=== PATIENT | female | born 1960 | race Caucasian/White ===

== ENCOUNTER 2017-12-29 19:19 | Observation (INO) | payer OTHER ==
[2017-12-29 20:08] LABS: Absolute Lymphocytes (CBC) 1.3 K/uL (0.7-4.9); Absolute Monocytes 0.7 K/uL (0.1-1.3); Absolute Neutrophil 8.3 K/uL (1.8-8.0); Basophils % 0.5 % (0-1.3); Eosinophils % 0.9 % (0-4.4); Hematocrit 43.3 % (36.0-45.0); Lymphocytes % 12.1 % (15.3-44.8); MCV 96.2 fL (80-100); MPV 7.1 fL (7.6-11.3); Monocytes % 6.8 % (3.3-12.3); RBC Red Blood Cell Count 4.51 M/uL (3.86-4.86)
[2017-12-29 20:12] LABS: Protime INR 0.95
[2017-12-29 20:18] LABS: Bicarbonate 22 mEq/L (21-31); Glucose Level 90 mg/dL (65-120); Potassium 3.8 mEq/L (3.6-5.0); Sodium Level 136 mEq/L (135-145)
[2017-12-29 20:24] LABS: ALT/SGPT 20 IU/L (10-60); AST/SGOT 49 IU/L (10-42); Albumin 3.9 g/dL (3.2-5.5); Alkaline Phosphatase 68 IU/L (42-121); BUN Blood Urea Nitrogen 6 mg/dL (6-20); Bilirubin Direct 0.1 mg/dL (0-0.2); Bilirubin Total 0.4 mg/dL (0.3-1.2); Creatine Phosphokinase 77 IU/L (22-269); Protein, Total 6.6 g/dL (6.0-8.3)
[2017-12-29 20:28] LABS: CKMB Creatine Kinase MB 1.9 ng/ml (0.3-4.0)
[2017-12-29] MEDS ORDERED: HYDRALAZINE HCL 20 MG/ML VIAL ONE (20:33)
[2017-12-29] MEDS ORDERED: hydroCHLOROthiazide 25 MG TAB ONE (20:34)
[2017-12-29] MEDS ORDERED: ASPIRIN EC 81 MG TAB PO ONE (20:34)
[2017-12-29] MEDS ORDERED: ONDANSETRON 4 MG/2 ML VIAL ONE (20:34)
[2017-12-29] MEDS ORDERED: ENOXAPARIN 60 MG/0.6 ML SQ ONE (20:35)
--- NOTE | 2017-12-29 20:35 | EDPHYS ---
Physician Documentation [facility] Name: Alessia Razo Age: 57 yrs Sex: Female : 1960 Arrival Date: 12/29/2017 Time: 19:38 Bed 16 Private MD: ED Physician Av Arevalo HPI: 12/29 20:21 This 57 yrs old Female presents to ER via EMS with complaints of Chest Pain. [place] 20:21 The patient or guardian reports chest pain that is located primarily in the substernal [place] area, anterior chest wall. Onset: just prior to arrival, today. The pain does not radiate. Associated signs and symptoms: Pertinent positives: nausea, shortness of breath. The chest pain is described as a heaviness, a pressure. Duration: The patient or guardian reports a single episode, that is still ongoing. Severity of pain: At its worst the pain was moderate in the emergency department the pain is unchanged. The patient has experienced similar episodes in the past, several times. Historical: - Allergies: 19:52 Codeine; mg2 - PMHx: 19:52 Hypertension; left eye prosthetic; left leg prosthetic; mg2 - Immunization history:: Adult Immunizations unknown. - Social history:: Smoking status: Patient uses tobacco products, smokes more than three packs cigarettes per day. Patient uses alcohol. - Family history:: not pertinent. ROS: 20:21 Constitutional: Negative for fever, chills, and weight loss, Eyes: Negative for injury, [place] pain, redness, and discharge, ENT: Negative for injury, pain, and discharge, Neck: Negative for injury, pain, and swelling, Cardiovascular: Negative for chest pain, palpitations, and edema, Respiratory: Negative for shortness of breath, cough, wheezing, and pleuritic chest pain, Abdomen/GI: Negative for abdominal pain, nausea, vomiting, diarrhea, and constipation, Back: Negative for injury and pain, : Negative for injury, bleeding, discharge, and swelling, MS/Extremity: Negative for injury and deformity, Skin: Negative for injury, rash, and discoloration, Neuro: Negative for headache, weakness, numbness, tingling, and seizure, Psych: Negative for depression, anxiety, suicide ideation, homicidal ideation, and hallucinations, Allergy/Immunology: Negative for hives, rash, and allergies, Endocrine: Negative for neck swelling, polydipsia, polyuria, polyphagia, and marked weight changes, Hematologic/Lymphatic: Negative for swollen nodes, abnormal bleeding, and unusual bruising. 20:21 MS/extremity: Negative for acute changes. Exam: 20:21 Constitutional: This is a well developed, well nourished patient who is awake, alert, [place] and in no acute distress. Head/Face: Normocephalic, atraumatic. Eyes: Pupils equal round and reactive to light, extra-ocular motions intact. Lids and lashes normal. Conjunctiva and sclera are non-icteric and not injected. Cornea within normal limits. Periorbital areas with no swelling, redness, or edema. ENT: Nares patent. No nasal discharge, no septal abnormalities noted. Tympanic membranes are normal and external auditory canals are clear. Oropharynx with no redness, swelling, or masses, exudates, or evidence of obstruction, uvula midline. Mucous membranes moist. Neck: Trachea midline, no thyromegaly or masses palpated, and no cervical lymphadenopathy. Supple, full range of motion without nuchal rigidity, or vertebral point tenderness. No Meningismus. Chest/axilla: Normal chest wall appearance and motion. Nontender with no deformity. No lesions are appreciated. Cardiovascular: Regular rate and rhythm with a normal S1 and S2. No gallops, murmurs, or rubs. Normal PMI, no JVD. No pulse deficits. Respiratory: Lungs have equal breath sounds bilaterally, clear to auscultation and percussion. No rales, rhonchi or wheezes noted. No increased work of breathing, no retractions or nasal flaring. Abdomen/GI: Soft, non-tender, with normal bowel sounds. No distension or tympany. No guarding or rebound. No evidence of tenderness throughout. Back: No spinal tenderness. No costovertebral tenderness. Full range of motion. Female : Normal external genitalia. Skin: Warm, dry with normal turgor. Normal color with no rashes, no lesions, and no evidence of cellulitis. MS/ Extremity: Pulses equal, no cyanosis. Neurovascular intact. Full, normal range of motion. Neuro: Awake and alert, GCS 15, oriented to person, place, time, and situation. Cranial nerves II-XII grossly intact. Motor strength 5/5 in all extremities. Sensory grossly intact. Cerebellar exam normal. Normal gait. Psych: Awake, alert, with orientation to person, place and time. Behavior, mood, and affect are within normal limits. 20:21 Musculoskeletal/extremity: DVT Exam: No signs of deep vein thrombosis. no pain, no swelling, no tenderness, negative Homans' sign noted on exam, no appreciated bluish discoloration, no erythema, no increased warmth. Vital Signs: 19:54 BP 212 / 107; Pulse 93; Resp 18; Temp 97.9; Pulse Ox 99% ; mg2 20:26 Weight 48.08 kg; Height 5 ft. 2 in. (157.48 cm); mg2 21:09 BP 132 / 79; Pulse 85; Resp 18; Pulse Ox 98% on R/A; mg2 21:39 BP 109 / 58; Pulse 80; Resp 18; Pulse Ox 97% on R/A; Pain 10/10; mg2 22:55 BP 112 / 62; Pulse 87; Resp 18; Pulse Ox 98% on R/A; Pain 5/10; mg2 20:26 Body Mass Index 19.39 (48.08 kg, 157.48 cm) mg2 MDM: 19:42 Patient medically screened. [facility] 20:23 Data reviewed: vital signs, nurses notes, lab test result(s), EKG, radiologic studies, [place] plain films. 12/29 19:49 Order name: Basic Metabolic Panel; Complete Time: 20:34 lp1 12/29 19:49 Order name: BNP; Complete Time: 20:34 lp1 12/29 19:49 Order name: CBC with Diff; Complete Time: 20:34 lp1 12/29 19:49 Order name: Ckmb; Complete Time: 20:34 lp1 12/29 19:49 Order name: CPK; Complete Time: 20:34 lp1 12/29 19:49 Order name: LFT's; Complete Time: 20:34 lp1 12/29 19:49 Order name: Magnesium; Complete Time: 20:34 lp1 12/29 19:49 Order name: PT-INR; Complete Time: 20:34 lp1 12/29 19:49 Order name: Ptt, Activated; Complete Time: 20:34 lp1 12/29 19:49 Order name: Troponin (emerg Dept Use Only); Complete Time: 20:34 lp1 12/29 19:49 Order name: XRAY Chest (1 view); Complete Time: 22:30 lp1 12/29 19:55 Order name: Urine Dipstick--Ancillary (enter results); Complete Time: 22:30 cb2 12/29 19:55 Order name: Urine --Ancillary (enter results); Complete Time: 22:30 cb2 12/29 19:49 Order name: EKG; Complete Time: 19:49 lp1 12/29 19:49 Order name: Cardiac monitoring; Complete Time: 19:49 lp1 12/29 19:49 Order name: EKG - Nurse/Tech; Complete Time: 19:49 lp1 12/29 19:49 Order name: IV Saline Lock; Complete Time: 19:49 lp1 12/29 19:49 Order name: Labs collected and sent; Complete Time: 20:05 lp1 12/29 19:49 Order name: O2 Per Protocol; Complete Time: 19:49 lp1 12/29 19:49 Order name: O2 Sat Monitoring; Complete Time: 19:49 lp1 12/29 19:49 Order name: Urine Dipstick-Ancillary (obtain specimen); Complete Time: 19:49 1 12/29 20:39 Order name: CONS Physician Consult EDMS Administered Medications: 20:42 Drug: Aspirin 81 mg Route: PO; mg2 21:10 Follow up: Response: No adverse reaction; Pain is decreased mg2 20:45 Drug: hydrALAZINE 20 mg Route: IV; Rate: per protocol; Site: right antecubital; mg2 21:12 Follow up: Response: No adverse reaction; Blood pressure is lowered mg2 20:45 Drug: HydrALAZINE 50 mg Route: PO; mg2 21:11 Follow up: Response: No adverse reaction; Blood pressure is lowered mg2 20:45 Drug: Lovenox 1 mg/kg Route: Sub-Q; Site: left upper abdomen; mg2 21:11 Follow up: Response: No adverse reaction mg2 20:45 Drug: fentaNYL (PF) 50 mcg Route: IVP; Site: right antecubital; mg2 21:11 Follow up: Response: No adverse reaction; Pain is decreased mg2 20:45 Drug: Zofran 4 mg Route: IVP; Site: right antecubital; mg2 21:11 Follow up: Response: No adverse reaction mg2 20:58 CANCELLED (Physician Discretion): Aspirin 162 mg PO once mg2 21:05 Drug: Coreg 25 mg Route: PO; mg2 21:26 Follow up: Response: No adverse reaction; Blood pressure is lowered mg2 Disposition: 12/29/17 20:34 Hospitalization ordered by Asia See for Observation. Preliminary diagnosis are Other chest pain, Essential (primary) hypertension. - Bed requested for Telemetry/MedSurg (observation). - Status is Observation. mg2 - Condition is Stable. - Problem is new. - Symptoms have improved. UTI on Admission? No Signatures: Dispatcher [employer] EDJackie Ace RN RN Av eL MD MD cha Pena, Laura, RN RN lp1 Beto Montesinos RN RN mg2 Corrections: (The following items were deleted from the chart) 20:58 20:21 Aspirin 162 mg PO once ordered. [facility] mg2 21:37 19:52 PSHx: BKA; mg2 lp1 21:48 20:34 Hospitalization Ordered by Asia See MD for Observation. Preliminary diagnosis is Other chest pain; Essential (primary) hypertension. Bed requested for Telemetry/MedSurg (observation). Status is Observation. Condition is Stable. Problem is new. Symptoms have improved. UTI on Admission? No. [place] 23:36 21:48 12/29/2017 20:34 Hospitalization Ordered by Asia See MD for Observation. mg2 Preliminary diagnosis is Other chest pain; Essential (primary) hypertension. Bed requested for Telemetry/MedSurg (observation). Status is Observation. Condition is Stable. Problem is new. Symptoms have improved. UTI on Admission? No.
--- NOTE | 2017-12-29 20:35 | ER ---
Nurse's Notes [facility] Name: Alessia Razo Age: 57 yrs Sex: Female : 1960 Arrival Date: 12/29/2017 Time: 19:38 Bed 16 Private MD: Diagnosis: Other chest pain;Essential (primary) hypertension Presentation: 12/29 19:45 Presenting complaint: EMS states: patient had substernal chest pain while today with a mg2 scale of 10/10. EMS gave one dose of nitroglycerin sublingual 0.5 mg \T\ 1830 and ventolin treatments prior to arrival. pain decreased to 5/10. Transition of care: patient was received from another setting of care (ambulatory primary care physician practice). Onset of symptoms was December 29, 2017. Initial Sepsis Screen: Does the patient meet any 2 criteria? No. Patient's initial sepsis screen is negative. Does the patient have a suspected source of infection? No. Patient's initial sepsis screen is negative. Care prior to arrival: Medication(s) given: Albuterol Neb x 1, Nitroglycerin, x 1. 19:45 Method Of Arrival: EMS mg2 19:45 Acuity: CAREY 3 mg2 21:07 Note aspirin 81 mgx3 was given by EMS at 1800. mg2 Triage Assessment: 19:55 General: Appears. General: Behavior is calm, cooperative, appropriate for age. Pain: mg2 Complains of pain in chest Pain level that patient reports is acceptable is 5 out of 10 on a pain scale. Quality of pain is described as aching, Pain began 2 hours ago. Is intermittent, Alleviated by medications. Historical: - Allergies: 19:52 Codeine; mg2 - PMHx: 19:52 Hypertension; left eye prosthetic; left leg prosthetic; mg2 - Immunization history:: Adult Immunizations unknown. - Social history:: Smoking status: Patient uses tobacco products, smokes more than three packs cigarettes per day. Patient uses alcohol. - Family history:: not pertinent. Screenin:55 Abuse screen: Denies threats or abuse. Nutritional screening: No deficits noted. mg2 Tuberculosis screening: No symptoms or risk factors identified. Fall Risk Ambulatory Aid- Gait- Impaired (20 pts.). Assessment: 19:56 General: Appears in no apparent distress. comfortable, Behavior is calm, cooperative, mg2 appropriate for age. Pain: Complains of pain in chest Pain level that patient reports is acceptable is 5 out of 10 on a pain scale. Quality of pain is described as aching, Pain began 2 hours ago. Is intermittent, Alleviated by medications. Neuro: Level of Consciousness is awake, alert, obeys commands, Oriented to person, place, time, situation, Speech is normal. Cardiovascular: Capillary refill < 3 seconds Patient's skin is warm and dry. Chest pain is described as mild, quality is pressure, is located in chest wall began 2 hours prior to arrival episodes are intermittent is alleviated by breathing, NTG. Respiratory: Airway is patent Respiratory effort is even, unlabored, Respiratory pattern is regular, symmetrical. GI: No signs and/or symptoms were reported involving the gastrointestinal system. : No signs and/or symptoms were reported regarding the genitourinary system. EENT: No signs and/or symptoms were reported regarding the EENT system. Derm: Skin is intact, Skin is pink, warm \T\ dry. 21:08 Reassessment: Patient appears in no apparent distress at this time. Patient and/or mg2 family updated on plan of care and expected duration. Pain level reassessed. Patient is alert, oriented x 3, equal unlabored respirations, skin warm/dry/pink. hospitalist on duty came and assessed the patient/ advised for admission. 21:40 Reassessment: patient complained of sudden chest pain. Hospitalist on duty was informed.mg2 23:07 Reassessment: Patient and/or family updated on plan of care and expected duration. Pain mg2 level reassessed. report given to PORSAH Grant. patient is ready to be transferred to the floor. Vital Signs: 19:54 BP 212 / 107; Pulse 93; Resp 18; Temp 97.9; Pulse Ox 99% ; mg2 20:26 Weight 48.08 kg; Height 5 ft. 2 in. (157.48 cm); mg2 21:09 BP 132 / 79; Pulse 85; Resp 18; Pulse Ox 98% on R/A; mg2 21:39 BP 109 / 58; Pulse 80; Resp 18; Pulse Ox 97% on R/A; Pain 10/10; mg2 22:55 BP 112 / 62; Pulse 87; Resp 18; Pulse Ox 98% on R/A; Pain 5/10; mg2 20:26 Body Mass Index 19.39 (48.08 kg, 157.48 cm) mg2 ED Course: 19:38 Patient arrived in ED. [email or web address] 19:42 Av Arevalo MD is Attending Physician. [place] 19:42 Beto Montesinos RN is Primary Nurse. mg2 19:48 Cardiac pain workup initiated per nursing protocol. lp1 19:49 Maintain EMS IV. Dressing intact. Good blood return noted. Site clean \T\ dry. Gauge \T\ lp 1 site: 18g to R AC. 19:51 Triage completed. mg2 19:59 Arm band placed on left wrist. mg2 20:00 Patient has correct armband on for positive identification. Placed in gown. Bed in low mg2 position. Call light in reach. Side rails up X2. Door closed. Warm blanket given. 20:18 XRAY Chest (1 view) In Process Unspecified. EDMS 20:18 X-ray completed. Portable x-ray completed in exam room. Patient tolerated procedure bb2 well. 20:33 Asia See MD is Hospitalizing Provider. [place] 23:30 No provider procedures requiring assistance completed. Patient admitted, IV remains in mg2 place. Administered Medications: 20:42 Drug: Aspirin 81 mg Route: PO; mg2 21:10 Follow up: Response: No adverse reaction; Pain is decreased mg2 20:45 Drug: hydrALAZINE 20 mg Route: IV; Rate: per protocol; Site: right antecubital; mg2 21:12 Follow up: Response: No adverse reaction; Blood pressure is lowered mg2 20:45 Drug: HydrALAZINE 50 mg Route: PO; mg2 21:11 Follow up: Response: No adverse reaction; Blood pressure is lowered mg2 20:45 Drug: Lovenox 1 mg/kg Route: Sub-Q; Site: left upper abdomen; mg2 21:11 Follow up: Response: No adverse reaction mg2 20:45 Drug: fentaNYL (PF) 50 mcg Route: IVP; Site: right antecubital; mg2 21:11 Follow up: Response: No adverse reaction; Pain is decreased mg2 20:45 Drug: Zofran 4 mg Route: IVP; Site: right antecubital; mg2 21:11 Follow up: Response: No adverse reaction mg2 20:58 CANCELLED (Physician Discretion): Aspirin 162 mg PO once mg2 21:05 Drug: Coreg 25 mg Route: PO; mg2 21:26 Follow up: Response: No adverse reaction; Blood pressure is lowered mg2 Outcome: 20:34 Decision to Hospitalize by Provider. [place] 23:30 Admitted to Med/surg accompanied by tech, via wheelchair, room 225, Report called to mg2 ty 23:30 Condition: stable mg2 23:30 Instructed on the need for admit. 23:36 Patient left the ED. mg2 Signatures: Dispatcher [employer] EDMS Yas Portillo rg2 Av Arevalo MD MD cha Pena, Laura, RN RN lp1 Kinsey De León bb2 Beto Montesinos RN RN mg2 Corrections: (The following items were deleted from the chart) 19:51 19:43 Presenting complaint: mg2 mg2 21:37 19:52 PSHx: BKA; mg2 lp1 12/30 02:09 02:08 No provider procedures requiring assistance completed. mg2 mg2 02:09 02:08 Patient admitted, IV remains in place. mg2 mg2
[2017-12-29] MEDS ORDERED: FENTANYL CITR 100 MCG/2 ML ONE (20:37)
--- NOTE | 2017-12-29 20:41 | RAD REPORT ---
EXAM DESCRIPTION: Dennis Single View12/29/2017 8:18 pm CLINICAL HISTORY: Chest pain COMPARISON: 2014 FINDINGS: The lungs appear clear of acute infiltrate. The heart is normal size IMPRESSION: No acute abnormalities displayed
[2017-12-29] MEDS ORDERED: CARVEDILOL 6.25 MG TAB ONE (20:52)
--- NOTE | 2017-12-29 21:11 | P.HP ---
Certification for Inpatient Patient admitted to: Observation With expected LOS: <2 Midnights Practitioner: I am a practitioner with admitting privileges, knowledge of patient current condition, hospital course, and medical plan of care. Services: Services provided to patient in accordance with Admission requirements found in Title 42 Section 412.3 of the Code of Federal Regulations Patient History Date of Service: 12/29/17 Reason for admission: chest pain History of Present Illness: Ms Razo is a 57 years old woman with history of HTN, PVD s/p left AKA, who is in plan for a spur removal from her stump. She states that has been under stress lately due to her surgery and her BP has been more elevated than usual. This morning her BP was above 200/100 at home. Then she start feeling chest pain , substernal, described as burning sensation, associated with SOB and tremors. She also had nausea and diaphoresis. She called 911, EMS gave her Nitro SL, the pain initially was 10/10, and after the nitro came down to 3/10. She states that 7 years ago had a angiogram and found a non-significant lesion. At arrival to ED her initial BP was 212/107. Allergies codeine Allergy (Mild, Verified 06/28/14 08:03) Itching No Known Allergies Allergy (Uncoded 11/25/15 15:09) Unknown Home Medications: Alprazolam [Xanax*] 0.5 mg PO Q8H 09/15/14 Gabapentin [Neurontin] 900 mg PO BEDTIME 09/15/14 Metoprolol Tartrate [Lopressor*] 50 mg PO BID 09/15/14 - Past Medical/Surgical History Diabetic: No -: PVD -: HTN -: Anxiety -: Depression -: tobacco abuse -: Partial Hysterectomy -: Cholesystectomy -: AKA left lower extremity -: Left eye removal - Family History Father -: Heart disease, Lung disease, Other (see notes) Notes: Father from TB Mother -: Lung disease, Other (see notes) Notes: Lung cancer - Social History Smoking Status: Light Tobacco smoker (1-9 cigarettes/day) Counseled patient to stop smoking for: less than 10 minutes Alcohol use: Yes CD- Drugs: No Caffeine use: Yes Review of Systems 10-point ROS is otherwise unremarkable Physical Examination - Physical Exam General: Alert, In no apparent distress HEENT: Atraumatic, PERRLA, Mucous membr. moist/pink, EOMI, Sclerae nonicteric Neck: Supple, 2+ carotid pulse no bruit, No LAD, Without JVD or thyroid abnormality Respiratory: Clear to auscultation bilaterally, Normal air movement Cardiovascular: Regular rate/rhythm, Normal S1 S2 Gastrointestinal: Normal bowel sounds, No tenderness Musculoskeletal: No tenderness, Other (left AKA) Integumentary: No rashes Neurological: Normal speech, Normal strength at 5/5 x4 extr, Normal tone, Normal affect Lymphatics: No axilla or inguinal lymphadenopathy - Studies Laboratory Data (last 24 hrs) 12/29/17 19:45: PT 11.2, INR 0.95, APTT 26.0 12/29/17 19:45: WBC 10.4, Hgb 14.9, Hct 43.3, Plt Count 295 12/29/17 19:45: B-Natriuretic Peptide 29 12/29/17 19:45: Sodium 136, Potassium 3.8, BUN 6, Creatinine 0.62, Glucose 90, Magnesium 2.0, Total Bilirubin 0.4, AST 49 H, ALT 20, Alkaline Phosphatase 68 Assessment and Plan - Problems (Diagnosis) (1) PVD (peripheral vascular disease) Current Visit: Yes Status: Acute (2) Hypertensive urgency Current Visit: Yes Status: Acute (3) Chest pain Onset Date: 06/28/14 Current Visit: No Status: Acute Qualifiers: Chest pain type: unspecified Qualified Code(s): R07.9 - Chest pain, unspecified (4) Tobacco abuse Current Visit: No Status: Chronic - Plan The patient will be admitted under observation due to chest pain in context of severe HTN. Initial trop I is negative, EKG shows no ST-T abnormalities. She was treated with HCTZ, Hydralazine and carvedilol. Her current BP is 160's/90' s. Chest pain is almost resolved. Will order serial cardiac enzymes, EKG, consult Cardiology team. - Advance Directives Does patient have a Living Will: No Does patient have a Durable POA for Healthcare: No - Code Status/Comfort Care Code Status Assessed: Yes Code Status: Full Code
[2017-12-29] MEDS ORDERED: TRAMADOL HCL 50 MG TAB PO ONE (21:41)
[2017-12-29] MEDS ORDERED: ALPRAZOLAM 0.5 MG TABLET PO SCH (22:00)
[2017-12-29 22:25] LABS: Urine Blood NEGATIVE (NEG); Urine Glucose NEGATIVE (NEG); Urine Protein NEGATIVE (NEG); Urine pH 5.5 (5.0-7.0)
[2017-12-29] MEDS ORDERED: HYDRALAZINE HCL 20 MG/ML VIAL IV PRN (23:03)
[2017-12-29] MEDS ORDERED: ONDANSETRON 4 MG/2 ML VIAL IV PRN (23:03)
[2017-12-30 01:15] VITALS: BMI 17.9
[2017-12-30] MEDS: ACETAMINOPHEN 500 MG TAB PO PRN ×2 (02:24→08:00)
[2017-12-30 06:10] LABS: Absolute Lymphocytes (CBC) 1.3 K/uL (0.7-4.9); Absolute Monocytes 0.4 K/uL (0.1-1.3); Absolute Neutrophil 4.4 K/uL (1.8-8.0); Basophils % 0.7 % (0-1.3); Eosinophils % 2.8 % (0-4.4); Hematocrit 44.1 % (36.0-45.0); Lymphocytes % 19.9 % (15.3-44.8); MCH 33.6 pg (27.0-35.0); MCV 96.9 fL (80-100); MPV 7.3 fL (7.6-11.3); RBC Red Blood Cell Count 4.55 M/uL (3.86-4.86)
[2017-12-30 06:17] LABS: Potassium 4.8 mEq/L (3.6-5.0)
--- NOTE | 2017-12-30 06:42 | EKG ---
Test Date: 2017-12-29 Test Time: 19:37:51 Drug Room Operator: BILLIE MEASUREMENT RESULTS: Intervals: Rate: 78 AL: 122 QRSD: 82 QT: 418 QTc: 476 Butler: P: 61 AL: 122 QRS: 71 T: 72 INTERPRETIVE STATEMENTS: Normal sinus rhythm Normal ECG Compared to ECG 09/15/2014 11:25:56 No significant changes Electronically Signed On 12-30-17 06:41:14 CDT by Agusto Sun
[2017-12-30] MEDS ORDERED: REGADENOSON 0.4 MG/5 ML SYR IV ONE (07:37)
[2017-12-30 08:46] VITALS: O2SAT 95
[2017-12-30] MEDS ORDERED: METOPROLOL TAR 50 MG TAB PO SCH (09:00)
[2017-12-30] MEDS ORDERED: ASPIRIN 81 MG CHEWABLE TABLET PO SCH (09:00)
[2017-12-30] MEDS ORDERED: ENOXAPARIN 40 MG/0.4 ML SQ SCH (09:00)
--- NOTE | 2017-12-30 10:04 | RAD REPORT ---
EXAM DESCRIPTION: NM - Rest Stress Cardiac Imaging - 12/30/2017 9:52 am CLINICAL HISTORY: Chest pain. COMPARISON: None. TECHNIQUE: The patient was administered approximately 10mCi of Tc 99m Sestamibi prior to resting SPE CT imaging of the heart. The patient was then administered approximately 30 mCi of Tc 99m Sestamibi f ollowing exercise or pharmacologic stress. Multiplanar SPECT images were reviewed. FINDINGS: No stress induced ischemic defect is seen to suggest stress induced ischemia. No fixed def ect is seen to suggest hibernating myocardium or scarred myocardium. The end diastolic volume is 67 ml, the end systolic volume is 17 ml, and the ejection fraction is 75 %. IMPRESSION: No stress induced ischemia.
--- NOTE | 2017-12-30 11:42 | TREADPHA ---
DX: CHEST PAIN Date of Study: 12/30/2017 Ht: 5 2 Wt: 98 lb 2 oz Consulting Physician: MELODY MEDICATIONS: TYLENOL, ASPIRIN, LOVENOX, APRESOLINE, ZOFRAN HISTORY: 57 YEAR OLD FEMALE WITH COMPLAINTS OF CHEST PAIN. MEDICAL HISTORY OF HYPERTENSION, LEFT EYE PROSTHETIC, CURRENT SMOKER OF FOUR CIGARETTES PER DAY. PHYSICIAL EXAMINATION: RESTING B.P.: 144/94 RESTING H.R.: 80 RESTING EKG: NORMAL SINUS RHYTHM, RIGHTWARD AXIS PROTOCOL: LEXISCAN EXERCISE TIME: 3:30 B.P. AT PEAK STRESS: 125/78 IMPRESSION: LEXISCAN INJECTED. CARDIOLITE INJECTED PER PROTOCOL. SEE NUCLEAR MEDICINE REPORT. NO SUPRAVENTRICULAR TACHYCARDIA. NO VENTRICULAR TACHYCARDIA. NO PREMATURE VENTRICULAR COMPLEXES. DENIED CHEST PAIN.
[2017-12-30 12:14] VITALS: BP 165/83; TEMP 99.6
[2017-12-30] MEDS ORDERED: ACETAMINOPHEN 325 MG TABLET PO PRN (13:06)
[2017-12-30] MEDS ORDERED: HYDROCODONE/APAP 10/325 TAB PO PRN (13:06)
[2017-12-30] MEDS ORDERED: ALBUTEROL 2.5 MG/3 ML NEB SOL NEB PRN (13:06)
[2017-12-30] MEDS ORDERED: HOME MED 1 EA UNK (Albuterol Sulfate [Proair Respiclick] 2 PUFF) IH PRN (13:06)
[2017-12-30] MEDS ORDERED: TIOTROPIUM (SPIRIVA) 5 SPRAYS/INHALER IH SCH (13:45)
--- NOTE | 2017-12-30 14:49 | CON ---
Date of Consultation: 12/30/2017 The patient was admitted on 12/29/[address] Chinchilla. I saw the patient on 12/30/2017. Reason For Consultation: Chest pain and hypertension. History Of Present Illness: Ms. Razo is a 57-year-old white woman, has had multiple issues in the [facility] including hypertension, peripheral vascular disease. She is status post left AKA. She has a pros thetic left leg, but apparently has not been feeling well, and she has a plan to have surgery by Dr. Chamberlain on the of this month to remove some bones from the stump area for the prosthesis to fit better. She also has a prosthetic left eye. She came in with hypertension, 200/100 and chest pain, which lasted about 30-40 minutes. She feels herself, but this may have been a panic disorder. In 2 012, she had a heart catheterization when she had a left AKA because of decompensation. Apparently, she was found to have some mild coronary artery disease. Today, she has a negative chest x-ray, nega tive EKG. Negative troponin, CPKs, MBs, and BNP. Her blood pressure is normal and she is asymptomat ic. She takes carvedilol at home. She also takes medication for dyslipidemia. Allergies: SHE IS ALLERGIC TO CODEINE. Medications: At home include Xanax, carvedilol, Neurontin, and Lipitor, Tylenol No. 3. Review of Systems: Negative. Social History: Negative. Family History: Negative. Physical Examination: General: The patient is anxious, but no acute distress. Vital Signs: Vital signs now are stable, afebrile. HEENT: Negative. Neck: Supple with no bruit. Chest: Clear. Cardiac: Revealed a regular rhythm and rate without any murmurs, gallops, or rubs. Abdomen: Benign. Extremities: Revealed left AKA. Diagnostic Data: As stated earlier. Impression And Plan: 1.The patient with chest pain, hypertension, possibly related to panic disorder. Symptoms are leia r now. Blood pressure is normal. The workup so far has been negative, but with her history of mild coronary artery disease 6 years ago, I recommended that we check a Lexiscan on her before making any final decisions. 2.Hypertension. 3.Status post left AKA. 4.Prosthetic left leg and left eye prosthesis as well. 5.Dyslipidemia. 6.Neuropathy. 7.Panic disorder and chronic pain. DARYN/MAGO Voice ID: [id number] Report ID: [id number]
--- NOTE | 2017-12-30 15:53 | P.DS ---
Admission Date: 12/29/17 Discharge Date: 12/30/17 Disposition: ROUTINE DISCHARGE Discharge Condition: FAIR Reason for Admission: chest pain Consultations: Assistant Professor Of Archaeology Dr. Moyer Procedures: Cardiac stress test negative - Problems (1) Chest pain Onset Date: 06/28/14 Status: Acute Qualifiers: Chest pain type: unspecified Qualified Code(s): R07.9 - Chest pain, unspecified (2) Hypertensive urgency Onset Date: 12/30/17 Status: Acute (3) PVD (peripheral vascular disease) Onset Date: 12/30/17 Status: Acute (4) Tobacco abuse Onset Date: 12/30/17 Status: Chronic Brief History of Present Illness: From H&P Ms Razo is a 57 years old woman with history of HTN, PVD s/p left AKA, who is in plan for a spur removal from her stump. She states that has been under stress lately due to her surgery and her BP has been more elevated than usual. This morning her BP was above 200/100 at home. Then she start feeling chest pain , substernal, described as burning sensation, associated with SOB and tremors. She also had nausea and diaphoresis. She called 911, EMS gave her Nitro SL, the pain initially was 10/10, and after the nitro came down to 3/10. She states that 7 years ago had a angiogram and found a non-significant lesion. At arrival to ED her initial BP was 212/107. Hospital Course: Patient is a 57-year-old female who was admitted to the hospital for chest pain rule out ACS. Patient was found to have mild coronary artery disease in 2011 after catheterization was done. Patient was admitted to rule out ACS. Cardiac enzymes were negative. Patient was seen by cardiology and stress test was obtained. Stress test did not show any stress-induced ischemia. Patient's chest pain resolved like related to anxiety. Patient also had uncontrolled blood pressure with systolic in the 200. Patient has been stressed out recently due to upcoming surgery for her a bone spur removal on her stump site. Patient to was then cleared for discharge by cardiology and was sent home in a stable condition Vital Signs/Physical Exam: Temp Pulse Resp BP Pulse Ox 99.6 F 73 16 165/83 H 96 12/30/17 12:00 12/30/17 12:00 12/30/17 12:00 12/30/17 12:00 12/30/17 12:00 General: Alert, In no apparent distress, Oriented x3 HEENT: Atraumatic, Normocephalic, PERRLA, EOMI Neck: Supple, JVD not distended Respiratory: Clear to auscultation bilaterally, Normal air movement Cardiovascular: No edema, Regular rate/rhythm, Normal S1 S2, Abnormal pulses Gastrointestinal: Normal bowel sounds, Soft and benign, Non-distended, No tenderness Musculoskeletal: No tenderness, Other (Left AKA) Integumentary: No rashes Neurological: Normal speech, Normal tone, Normal affect Laboratory Data at Discharge: WBC 6.3 K/uL (4.3-10.9) D 12/30/17 05:17 Hgb 15.3 g/dL (12.0-15.0) H 12/30/17 05:17 Hct 44.1 % (36.0-45.0) 12/30/17 05:17 Plt Count 297 K/uL (152-406) 12/30/17 05:17 PT 11.2 SECONDS (9.5-12.5) 12/29/17 19:45 INR 0.95 12/29/17 19:45 APTT 26.0 SECONDS (24.3-36.9) 12/29/17 19:45 Sodium 138 mEq/L (135-145) 12/30/17 05:17 Potassium 4.8 mEq/L (3.6-5.0) 12/30/17 05:17 BUN 11 mg/dL (6-20) 12/30/17 05:17 Creatinine 0.82 mg/dL (0.44-1.00) 12/30/17 05:17 Glucose 95 mg/dL (65-120) 12/30/17 05:17 Magnesium 2.0 mg/dL (1.8-2.5) 12/29/17 19:45 Total Bilirubin 0.4 mg/dL (0.3-1.2) 12/29/17 19:45 AST 49 IU/L (10-42) H 12/29/17 19:45 ALT 20 IU/L (10-60) 12/29/17 19:45 Alkaline Phosphatase 68 IU/L (42-121) 12/29/17 19:45 Troponin I < 0.03 ng/mL (<0.03) 12/29/17 23:11 B-Natriuretic Peptide 29 pg/ml (<=100) 12/29/17 19:45 Triglycerides 168 mg/dL (35-160) H 12/30/17 05:17 Cholesterol 227 mg/dL (<200) H 12/30/17 05:17 HDL Cholesterol 76 mg/dL (29-89) 12/30/17 05:17 Cholesterol/HDL Ratio 2.99 12/30/17 05:17 Home Medications: Alprazolam [Xanax*] 1 mg PO BID 09/15/14 Gabapentin [Neurontin] 900 mg PO BID 09/15/14 Acetaminophen [Tylenol] 2 tab PO Q6H PRN 12/30/17 Albuterol Sulfate [Albuterol Sulfate 0.083% Neb Soln] 2.5 mg IH Q4H PRN Albuterol Sulfate [Proair Respiclick] 2 puff IH Q4H PRN 12/30/17 Amlodipine [Norvasc*] 10 mg PO DAILY 12/30/17 Aspirin 81 mg PO DAILY 12/30/17 Atorvastatin Calcium [Lipitor] 40 mg PO DAILY 12/30/17 Carvedilol 0.5 mg PO BID 12/30/17 Cyanocobalamin (Vitamin B-12) [Vitamin B12] 2,500 mcg PO DAILY 12/30/17 Hydralazine [Apresoline*] 50 mg PO BID 12/30/17 Hydrocodone/Acetaminophen [Hydrocodone-Acetamin 10-325 mg] 1 tab PO Q6H PRN 11/14 Oxybutynin Chloride 5 mg PO BID 12/30/17 Paroxetine HCl 20 mg PO DAILY 12/30/17 Tiotropium [Spiriva Handihaler*] 18 mcg IH DAILY 12/30/17 Patient Discharge Instructions: f/up w PCP in 2-3 days. f/up w supervisor hospitality house Dr. Moyer in 2 weeks. Return to ER for worsening condition Diet: AHA Activity: Fall precautions Followup: Neal Moyer MD [ACTIVE - CAN ADMIT] - 1-2 Weeks (Call for appointment)
[2017-12-30] MEDS ORDERED: OXYBUTYNIN CHLORIDE 5 MG TAB PO SCH (21:00)
[2017-12-30] MEDS ORDERED: GABAPENTIN 900 MG PO SCH (21:00)
[2017-12-30] MEDS ORDERED: CARVEDILOL 25 MG TAB PO SCH (21:00)
[2017-12-30] MEDS ORDERED: GABAPENTIN 300 MG CAP PO SCH (21:00)
[2017-12-30] MEDS ORDERED: ATORVASTATIN 40 MG TAB PO SCH (21:00)
[2017-12-31] MEDS ORDERED: AMLODIPINE 10 MG TAB PO SCH (09:00)
[2017-12-31] MEDS ORDERED: CYANOCOBALAMIN 1,000 MCG TAB PO SCH (09:00)
[2017-12-31] MEDS ORDERED: PARoxetine HCl 10 MG TAB PO SCH (09:00)
[2017-12-31] MEDS ORDERED: HOME MED 1 EA UNK (Paroxetine Hcl [Paroxetine Hcl] 20 MG) PO SCH (09:00)
[2017-12-31] MEDS ORDERED: HOME MED 1 EA UNK (Cyanocobalamin (Vitamin B-12) [Vitamin B12] 2,500 MCG) PO SCH (09:00)
== END 2017-12-30 14:15 | disposition home or self-care (01) ==
LOC: ER 19:19 → ERHOLD 20:36 → 2ND 22:38
PROVIDERS: ADMIT Internal Medicine; ATTEND Internal Medicine
DX: R07.9 Chest pain, unspecified (principal); I16.0 Hypertensive urgency; I73.9 Peripheral vascular disease, unspecified; Z89.612 Acquired absence of left leg above knee; F17.210 Nicotine dependence, cigarettes, uncomplicated; F41.0 Panic disorder [episodic paroxysmal anxiety]
CPT/HCPCS: 36415; 71045; 78452; 80048; 80061; 80076; 81003; 81025; 82550; 82553; 83735; 83880; 84484; 85025; 85610; 85730; 93005; 93017; 96372; 96374; 96375; 99285; A9500; G0378; J0360; J1650; J2405; J2785; J3010

== ENCOUNTER 2020-09-29 18:06 | Emergency (ER) | payer OTHER ==
--- OUTSIDE RECORDS SUMMARY | 2020-09-29 18:09 | XMS REPORT | Continuity of Care Document ---
:1960 Author Organization [facility] t Address [address] [place] [address] Care Team Providers Name Role Phone Unavailable Unavailable Unavailable Problems This patient has no known problems. Allergies, Adverse Reactions, Alerts This patient has no known allergies or adverse reactions. Medications This patient has no known medications. Procedures This patient has no known procedures. Results This patient has no known results.
[2020-09-29] MEDS ORDERED: MORPHINE 4 MG/ML SYR ONE (18:54)
[2020-09-29] MEDS ORDERED: ONDANSETRON 4 MG (ODT) TAB ONE (18:55)
--- NOTE | 2020-09-29 20:28 | EDPHYS ---
Physician Documentation [facility] Name: Alessia Rzao Age: 59 yrs Sex: Female : 1960 Arrival Date: 09/29/2020 Time: 18:09 Bed 6 Private MD: ED Physician Ela Mcclain HPI: 09/29 18:36 This 59 yrs old Female presents to ER via EMS with complaints of Hip Injury. pm1 18:36 The patient or guardian reports pain. that occurred at home, sustained from a fall, pm1 from wheelchair, There is no obvious deformity, The patient's discomfort radiates to the pain radiates from left hip up to her lower back. Onset: The symptoms/episode began/occurred just prior to arrival. Modifying factors: The symptoms are alleviated by nothing, the symptoms are aggravated by nothing. Associated signs and symptoms: Loss of consciousness: the patient experienced no loss of consciousness, Pertinent negatives: headache, neck pain. Severity of symptoms: in the emergency department the symptoms. The patient has not experienced similar symptoms in the past. Patient with left AKA. Historical: - Allergies: 18:15 Codeine; hb - Home Meds: 18:15 "unknown hypertension medication" [Active]; Aspir-81 81 mg Oral TbEC 1 tab once daily hb [Active]; alprazolam 1 mg Oral tab 1 tab twice a day [Active]; Coumadin 7.5 mg Oral tab daily [Active]; gabapentin 900 mg Oral 1 cap once daily [Active]; Metoprolol Tartrate Oral for Hypertension [Active]; - PMHx: 18:15 Hypertension; left eye prosthetic; left leg prosthetic; hb - Immunization history: Last tetanus immunization: unknown. - Social history:: Smoking status: Patient reports the use of cigarette tobacco products, smokes one pack cigarettes per day. ROS: 18:36 Constitutional: Negative for fever, chills, and weight loss, Neck: Negative for injury, pm1 pain, and swelling, Cardiovascular: Negative for chest pain, palpitations, and edema, Respiratory: Negative for shortness of breath, cough, wheezing, and pleuritic chest pain, Abdomen/GI: Negative for abdominal pain, nausea, vomiting, diarrhea, and constipation, Back: Negative for injury 18:36 Skin: Negative for injury, rash, and discoloration. 18:36 Neuro: Negative for headache, weakness, numbness, tingling, and seizure. 18:36 MS/extremity: Positive for pain, of the left hip, Negative for decreased range of motion, deformity. Exam: 18:36 Constitutional: This is a well developed, well nourished patient who is awake, alert, pm1 and in no acute distress. Head/Face: Normocephalic, atraumatic. Neck: Trachea midline, no thyromegaly or masses palpated, and no cervical lymphadenopathy. Supple, full range of motion without nuchal rigidity, or vertebral point tenderness. No Meningismus. 18:36 Skin: Warm, dry with normal turgor. Normal color with no rashes, no lesions, and no evidence of cellulitis. 18:36 Cardiovascular: Exam negative for acute changes, Rate: normal, Rhythm: regular, Pulses: no pulse deficits are appreciated. 18:36 Respiratory: Exam negative for acute changes, respiratory distress, shortness of breath. 18:36 Abdomen/GI: Inspection: abdomen appears normal, Palpation: abdomen is soft and non-tender, in all quadrants. 18:36 Back: pain, is absent, normal spinal alignment noted, vertebral tenderness, is not appreciated, muscle spasm, is not present. 18:36 Musculoskeletal/extremity: Extremities: grossly normal except: noted in the left hip: tenderness, There is no evidence of decreased ROM, deformity. Vital Signs: 18:10 BP 109 / 76; Pulse 84; Resp 17; Temp 97.8; Pulse Ox 99% on R/A; Pain 10/10; hb 20:00 BP 161 / 80; Pulse 80; Resp 18; Pulse Ox 98% on R/A; wh [place] Coma Score: 18:10 Eye Response: spontaneous(4). Verbal Response: oriented(5). Motor Response: obeys hb commands(6). Total: 15. Trauma Score (Adult): 18:10 Eye Response: spontaneous(1); Verbal Response: oriented(1); Motor Response: obeys hb commands(2); Systolic BP: > 89 mm Hg(4); Respiratory Rate: 10 to 29 per min(4); Barbie Score: 15; Trauma Score: 12 MDM: 18:32 Patient medically screened. pm1 19:20 Data reviewed: vital signs. Data interpreted: Pulse oximetry: on room air is 99 %. pm1 Interpretation: normal. 20:27 Counseling: I had a detailed discussion with the patient and/or guardian regarding: the pm1 historical points, exam findings, and any diagnostic results supporting the discharge/admit diagnosis, radiology results, the need for outpatient follow up, to return to the emergency department if symptoms worsen or persist or if there are any questions or concerns that arise at home. 20:46 ED course: WINDOW SHADE INSTALLER allison reviewed and explained to patient to follow up with her PCP for pm1 narcotic medications if she so desires. Patient understands and [facility] 18:35 Order name: Hip Left 2 View XRAY pm1 Administered Medications: 18:43 Drug: morphine 4 mg {Note: rass2.} Route: IM; Site: right deltoid; sv 20:56 Follow up: Response: No adverse reaction; Pain is decreased; RASS: Alert and Calm (0) 18:43 Drug: Zofran (Ondansetron) 4 mg Route: PO; sv 20:57 Follow up: Response: No adverse reaction 20:50 Drug: [place] 10 mg-325 mg 1 tabs Route: PO; wh 20:57 Follow up: Response: No adverse reaction; Pain is decreased; RASS: Alert and Calm (0) Disposition: 09/30 18:33 Co-signature as Attending Physician, Ela Mcclain MD. ma2 Disposition: 09/29/20 20:28 Discharged to Home. Impression: Contusion of left hip, Fall from non-moving wheelchair. - Condition is Stable. - Discharge Instructions: Contusion. - Medication Reconciliation Form, Thank You Letter, Antibiotic Education, Prescription Opioid Use form. - Follow up: Emergency Department; When: As needed; Reason: Worsening of condition. Follow up: Private Physician; When: 2 - 3 days; Reason: Recheck today's complaints, Continuance of care, Re-evaluation by your physician. - Problem is new. - Symptoms have improved. Signatures: Dispatcher [employer] EDAmerica Echeverria, RN Gee Nicole, CHILLER HAND CHILLER HAND pm1 Nasreen Medeiros RN RN hb Habalo, Winsy, RN RN Ela Mcclain MD MD ma2 Corrections: (The following items were deleted from the chart) 01/31 20:48 20:46 ED course: MADDI cooper reviewed and explained to patient to follow up with her PCP pm1 for narcotic medications if she so desires. Patient understands and I showed her her report from [facility]. pm1 20:58 20:28 09/29/2020 20:28 Discharged to Home. Impression: Contusion of left hip; Fall from wh non-moving wheelchair. Condition is Stable. Forms are Medication Reconciliation Form, Thank You Letter, Antibiotic Education, Prescription Opioid Use. Follow up: Emergency Department; When: As needed; Reason: Worsening of condition. Follow up: Private Physician; When: 2 - 3 days; Reason: Recheck today's complaints, Continuance of care, Re-evaluation by your physician. Problem is new. Symptoms have improved. pm1
--- NOTE | 2020-09-29 20:28 | ER ---
Nurse's Notes [facility] Name: Alessia Razo Age: 59 yrs Sex: Female : 1960 Arrival Date: 09/29/2020 Time: 18:09 Bed 6 Private MD: Diagnosis: Contusion of left hip;Fall from non-moving wheelchair Presentation: 09/29 18:10 Chief complaint: EMS states: Fell out of wheelchair onto left hip while attempting to hb cross threshold of her home. Reports left hip pain / that radiates to low back and down left leg. Hx of left AKA 2010. Care prior to arrival: None. Mechanism of Injury: Fall out of chair. Trauma event details: Injury occurred in the [facility], Injury occurred: at home. Injury occurred: September 29, 2020. 18:10 Acuity: CAREY 3 hb 18:10 Method Of Arrival: EMS: [facility] hb 18:14 Coronavirus screen: At this time, the client does not indicate any symptoms associated hb with coronavirus-19. Ebola Screen: No symptoms or risks identified at this time. Initial Sepsis Screen: Does the patient meet any 2 criteria? No. Patient's initial sepsis screen is negative. Does the patient have a suspected source of infection? No. Patient's initial sepsis screen is negative. Risk Assessment: Do you want to hurt yourself or someone else? Patient reports no desire to harm self or others. Onset of symptoms was September 29, 2020. Trauma Activation: Not Applicable Physician: ED Physician; Name: ; Notified At: ; Arrived At: Physician: General Surgeon; Name: ; Notified At: ; Arrived At: Physician: Radiology; Name: ; Notified At: ; Arrived At: Physician: Respiratory; Name: ; Notified At: ; Arrived At: Physician: Lab; Name: ; Notified At: ; Arrived At: Historical: - Allergies: 18:15 Codeine; hb - Home Meds: 18:15 "unknown hypertension medication" [Active]; Aspir-81 81 mg Oral TbEC 1 tab once daily hb [Active]; alprazolam 1 mg Oral tab 1 tab twice a day [Active]; Coumadin 7.5 mg Oral tab daily [Active]; gabapentin 900 mg Oral 1 cap once daily [Active]; Metoprolol Tartrate Oral for Hypertension [Active]; - PMHx: 18:15 Hypertension; left eye prosthetic; left leg prosthetic; hb - Immunization history: Last tetanus immunization: unknown. - Social history:: Smoking status: Patient reports the use of cigarette tobacco products, smokes one pack cigarettes per day. Screenin:10 Abuse screen: Denies threats or abuse. Denies injuries from another. Tuberculosis hb screening: No symptoms or risk factors identified. 18:15 Nutritional screening: No deficits noted. Fall Risk Total Raymond Fall Scale indicates hb Low Risk Score (25-44 pts). Fall prevention measures have been instituted. Side Rails Up X 2 Frequent Obs/Assesments occuring As available Patient and Family Educated on Fall Prevention Program and strategies. Primary Survey: 18:10 NO uncontrolled hemorrhage observed. A: The patient is alert. Airway: patent, No hb supplemental oxygen in use on arrival. Breathing/Chest: Respiratory pattern: regular, Respiratory effort: spontaneous, unlabored, Chest inspection: symmetrical rise and fall of the chest. Circulation: Skin color: pink, Skin temperature: warm, dry. Disability Alert. Exposure/Environment: A warming method has been applied: A warm blanket has been provided to the patient. 19:15 Reassessment Breathing/Chest Respiratory pattern Regular Respiratory effort Spontaneous wh Unlabored Circulation Temperature Warm. Secondary Survey: 18:10 HEENT: No deficits noted. Gastrointestinal: No deficits noted. : No deficits noted. hb No signs and/or symptoms were reported regarding the genitourinary system. Musculoskeletal: Reports left hip pain that radiates to left leg and low back. Assessment: 18:10 General: Appears in no apparent distress. uncomfortable, Behavior is calm, cooperative. hb Pain: Pain currently is 10 out of 10 on a pain scale. Neuro: Level of Consciousness is awake, alert, obeys commands, Oriented to person, place, time, situation. EENT: No signs and/or symptoms were reported regarding the EENT system. Cardiovascular: Capillary refill < 3 seconds Patient's skin is warm and dry. Respiratory: Respiratory effort is even, unlabored, Respiratory pattern is regular, symmetrical. GI: No signs and/or symptoms were reported involving the gastrointestinal system. : No signs and/or symptoms were reported regarding the genitourinary system. Derm: Skin is pink, warm \\T\\ dry. Musculoskeletal: Reports left hip pain that radiates to low back and left leg. 18:44 Reassessment: Patient appears in no apparent distress at this time. No changes from sv previously documented assessment. Patient and/or family updated on plan of care and expected duration. Pain level reassessed. Patient is alert, oriented x 3, equal unlabored respirations, skin warm/dry/pink. 19:15 Reassessment: Patient appears in no apparent distress at this time. Patient and/or wh family updated on plan of care and expected duration. Pain level reassessed. Patient is alert, oriented x 3, equal unlabored respirations, skin warm/dry/pink. 20:05 Reassessment: Patient appears in no apparent distress at this time. Patient and/or wh family updated on plan of care and expected duration. Pain level reassessed. Patient is alert, oriented x 3, equal unlabored respirations, skin warm/dry/pink. Vital Signs: 18:10 BP 109 / 76; Pulse 84; Resp 17; Temp 97.8; Pulse Ox 99% on R/A; Pain 10/10; hb 20:00 BP 161 / 80; Pulse 80; Resp 18; Pulse Ox 98% on R/A; wh [place] Coma Score: 18:10 Eye Response: spontaneous(4). Verbal Response: oriented(5). Motor Response: obeys hb commands(6). Total: 15. Trauma Score (Adult): 18:10 Eye Response: spontaneous(1); Verbal Response: oriented(1); Motor Response: obeys hb commands(2); Systolic BP: > 89 mm Hg(4); Respiratory Rate: 10 to 29 per min(4); Barbie Score: 15; Trauma Score: 12 ED Course: 18:09 Patient arrived in ED. hb 18:10 Patient has correct armband on for positive identification. Bed in low position. Call hb light in reach. Side rails up X 1. 18:10 Patient maintains SpO2 saturation greater than 95% on room air. hb 18:11 Triage completed. hb 18:15 Arm band placed on. hb 18:16 Thermoregulation: warm blanket given to patient. hb 18:32 Gee Dominguez NP is PHCP. pm1 18:32 Ela Mcclain MD is Attending Physician. pm1 18:37 Nasreen Medeiros RN is Primary Nurse. hb 19:07 Primary Nurse role handed off by Nasreen Medeiros RN mw2 19:48 Hip Left 2 View XRAY In Process Unspecified. EDMS 20:06 Yonis Dominguez, RN is Primary Nurse. 20:57 No provider procedures requiring assistance completed. Patient did not have IV access during this emergency room visit. Administered Medications: 18:43 Drug: morphine 4 mg {Note: rass2.} Route: IM; Site: right deltoid; sv 20:56 Follow up: Response: No adverse reaction; Pain is decreased; RASS: Alert and Calm (0) 18:43 Drug: Zofran (Ondansetron) 4 mg Route: PO; sv 20:57 Follow up: Response: No adverse reaction 20:50 Drug: [place] 10 mg-325 mg 1 tabs Route: PO; 20:57 Follow up: Response: No adverse reaction; Pain is decreased; RASS: Alert and Calm (0) Intake: 18:10 PO: 0ml; Total: 0ml. hb Output: 18:10 Urine: 0ml; Total: 0ml. Outcome: 20:28 Discharge ordered by MD. pm1 20:57 Discharged to home via wheelchair. 20:57 Condition: stable 20:57 Discharge instructions given to patient, Instructed on discharge instructions, follow up and referral plans. POC Demonstrated understanding of instructions, follow-up care, POC 20:58 Patient's length of stay was not longer than 2 hours. 20:58 Patient left the ED. Signatures: Dispatcher [employer] EDMT America Kellogg RN RN Gee Dominguez, VETERANS REHABILITATION COUNSELOR VETERANS REHABILITATION COUNSELOR pm1 Nasreen Medeiros RN RN Yonis Dominguez RN RN Pavan Kearns mw2 Corrections: (The following items were deleted from the chart) 18:12 18:10 Chief complaint: EMS states: Fell out of wheelchair onto left hip while hb attempting to cross threshold of her home. Reports left hip pain 10/10 that radiates to low back and down left leg. Hx of left leg AKA 2010. hb
[2020-09-29] MEDS ORDERED: HYDROCODONE/APAP 10/325 TAB ONE (21:04)
--- NOTE | 2020-09-29 21:06 | RAD REPORT ---
EXAM DESCRIPTION: RAD - Hip Left 2 View - 09/29/2020 7:46 pm CLINICAL HISTORY: Left hip pain status post injury FINDINGS: Bones are osteoporotic. No fracture or dislocation is seen involving the left hip. Prominent lucency involves the diaphysis of the left femur to the level of the stump. Most likely thi s represents prominent trabecula. A nondisplaced fracture is considered less likely. If the patient has clinical symptoms to suggest an occult fracture then CT would be recommended
[2020-09-29 21:37] VITALS: TEMP 97.8
[2020-09-29 21:38] VITALS: BP 161/80; O2SAT 98
== END 2020-09-29 20:58 | disposition home or self-care (01) ==
LOC: ER 18:06
DX: S70.02XA Contusion of left hip, initial encounter (principal); V00.811A Fall from moving wheelchair (powered), initial encounter; Y92.019 Unspecified place in single-family (private) house as the place of occurrence of the external cause; Y93.9 Activity, unspecified; Y92.9 Unspecified place or not applicable; Z88.6 Allergy status to analgesic agent; F17.210 Nicotine dependence, cigarettes, uncomplicated
CPT/HCPCS: 96372; 99284

== ENCOUNTER 2020-11-14 01:32 | Emergency (ER) | payer OTHER ==
--- OUTSIDE RECORDS SUMMARY | 2020-11-14 01:34 | XMS REPORT | Continuity of Care Document ---
:1960 Author Organization [facility] t Address [address] [place] [address] Dr. Duncan [address] [place] [id number] Care Team Providers Name Role Phone Unavailable Unavailable Unavailable Problems This patient has no known problems. Allergies, Adverse Reactions, Alerts This patient has no known allergies or adverse reactions. Medications This patient has no known medications. Procedures This patient has no known procedures. Results This patient has no known results.
[2020-11-14] MEDS ORDERED: hydroCHLOROthiazide 25 MG TAB ONE (02:48)
[2020-11-14] MEDS ORDERED: SMZ./TMP. 800/160 MG TABLET ONE (02:48)
[2020-11-14] MEDS ORDERED: DOXYCYCLINE 100 MG CAP PO ONE (02:48)
[2020-11-14] MEDS ORDERED: METOPROLOL TAR 50 MG TAB ONE (02:48)
[2020-11-14 03:05] LABS: Urine Blood TRACE (NEG); Urine Glucose NEGATIVE (NEG); Urine Protein NEGATIVE (NEG); Urine Specific Gravity >1.030 (1.005-1.030); Urine pH 5.5 (5.0-7.0)
[2020-11-14 03:17] LABS: Absolute Lymphocytes (CBC) 2.2 K/uL (0.7-4.9); Hematocrit 40.3 % (36.0-45.0); Lymphocytes % 28.6 % (15.3-44.8); MPV 7.4 fL (7.6-11.3); RBC Red Blood Cell Count 4.34 M/uL (3.86-4.86)
[2020-11-14 03:30] LABS: Barbiturates NEGATIVE (NEGATIVE); Benzodiazepines NEGATIVE (NEGATIVE); Cocaine NEGATIVE (NEGATIVE); METHAMPHETAM POSITIVE (NEGATIVE); Methadone NEGATIVE (NEGATIVE); Opiates NEGATIVE (NEGATIVE); Phencyclidine NEGATIVE (NEGATIVE); THC Cannibis NEGATIVE (NEGATIVE)
--- NOTE | 2020-11-14 03:33 | ER ---
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 Pt thinks its either parasite or bed bug. Coronavirus screen: Client denies travel out of the [place] in the last 14 days. At this time, the client does not indicate any symptoms associated with coronavirus-19. Ebola Screen: Patient negative for fever greater than or equal to 101.5 degrees Fahrenheit, and additional compatible Ebola Virus Disease symptoms Patient denies exposure to infectious person. Initial Sepsis Screen: Does the patient meet any 2 criteria? HR > 90 bpm. Does the patient have a suspected source of infection? No. Patient's initial sepsis screen is negative. Risk Assessment: Do you want to hurt yourself or someone else? Patient reports no desire to harm self or others. Onset of symptoms was November 14, 2020. 01:38 Method Of Arrival: EMS: [facility] 01:38 Acuity: CAREY 4 Historical: - Allergies: 01:43 Codeine; - Home Meds: :43 "unknown hypertension medication" [Active]; alprazolam 1 mg Oral tab 1 tab twice a day [Active]; Aspir-81 81 mg Oral TbEC 1 tab once daily [Active]; Metoprolol Tartrate Oral for Hypertension [Active]; - PMHx: 01:43 Hypertension; left eye prosthetic; left leg prosthetic; - Immunization history:: Adult Immunizations not up to date. - Social history:: Smoking status: Patient reports the use of cigarette tobacco products, smokes one-half pack cigarettes per day. - Family history:: not pertinent. Screenin:43 Abuse screen: Denies threats or abuse. Denies injuries from another. Nutritional screening: No deficits noted. Tuberculosis screening: No symptoms or risk factors identified. Fall Risk Fall in past 12 months (25 points). Assessment: 01:44 General: Appears in no apparent distress. Behavior is calm, cooperative, appropriate for age. Pain: Denies pain. Neuro: Level of Consciousness is awake, alert, obeys commands, Oriented to person, place, time, situation. Cardiovascular: Capillary refill < 3 seconds. Respiratory: Airway is patent Respiratory effort is even, unlabored, Respiratory pattern is regular, symmetrical. GI: Abdomen is flat, non-distended. : No signs and/or symptoms were reported regarding the genitourinary system. EENT: Reports prosthetic right eye. Derm: Skin is intact. Musculoskeletal: Amputation of left leg. 03:40 Reassessment: Patient appears in no apparent distress at this time. No changes from previously documented assessment. Patient and/or family updated on plan of care and expected duration. Pain level reassessed. Patient is alert, oriented x 3, equal unlabored respirations, skin warm/dry/pink. Vital Signs: 01:38 BP 213 / 122; Pulse 96; Resp 18; Temp 98.2; Pulse Ox 99% ; Weight 42.64 kg; Height 5 ft. 2 in. (157.48 cm); 03:39 BP 153 / 92; Pulse 70; Resp 18; Pulse Ox 99% on R/A; 01:38 Body Mass Index 17.19 (42.64 kg, 157.48 cm) ED Course: 01:37 Patient arrived in ED. 01:40 Triage completed. 01:43 Av Arevalo MD is Attending Physician. [place] 01:44 Patient has correct armband on for positive identification. Bed in low position. Call light in reach. Side rails up X 1. Pulse ox on. NIBP on. 01:45 Arm band placed on right wrist. 01:57 Stone Tucker RN is Primary Nurse. rv 02:00 Inserted saline lock: 20 gauge in right antecubital area, using aseptic technique. Blood collected. 03:32 French Lala MD is Referral Physician. [place] 03:56 No provider procedures requiring assistance completed. IV discontinued, intact, bleeding controlled, No redness/swelling at site. Administered Medications: 02:34 Drug: Bactrim (160 mg-800 mg (DS) 1 tablet Route: PO; rv 03:38 Follow up: Response: No adverse reaction 02:35 Drug: Doxycycline 100 mg Route: PO; rv 03:38 Follow up: Response: No adverse reaction 02:35 Drug: HydrALAZINE 25 mg Route: PO; rv 03:38 Follow up: Response: No adverse reaction; Blood pressure is lowered 02:35 Drug: Lopressor (metoprolol TARTRATE) 50 mg Route: PO; rv 03:38 Follow up: Response: No adverse reaction; Blood pressure is lowered Outcome: 03:33 Discharge ordered by . [facility] 03:57 Discharged to home ambulatory. 03:57 Condition: stable 03:57 Discharge instructions given to patient, Instructed on discharge instructions, follow up and referral plans. medication usage, POC Demonstrated understanding of instructions, follow-up care, medications, POC Prescriptions given X 4. 03:57 Patient left the ED. Addendum: 11/17/2020 07:12 Addendum: Culture Results: Positive wound culture. No further action required. Bacteria e b sensitive to prescribed antibiotic. Signatures: Av Arevalo MD MD cha Habalo, Winsy, RN RN Ivory Granger Ronaldo, RN RN Corrections: (The following items were deleted from the chart) 11/14 01:40 01:38 Pulse 96bpm; Resp 18bpm; Pulse Ox 99%; Temp 98.2F; 42.64 kg; Height 5 ft. 2 in.; BMI: 17.1; 03:39 17 23:00 BP 124 / 50; Pulse 62bpm; Resp 16bpm; Pulse Ox 100% RA; [facility] 11/14 03:39 01:30 BP 137 / 66; Pulse 64bpm; Resp 15bpm; Pulse Ox 99% RA; [facility]
--- NOTE | 2020-11-14 03:33 | EDPHYS ---
Physician Documentation [facility] Name: Alessia Razo Age: 59 yrs Sex: Female : 1960 Arrival Date: 11/14/2020 Time: 01:37 Bed 4 Private MD: ÁNGEL Physician Av Arevalo HPI: 11/14 02:04 This 59 yrs old Female presents to ER via EMS with complaints of Foreign Body [place] In Eye. 02:04 The patient sustained infection, possible parasite. Onset: The symptoms/episode [place] began/occurred 3 day(s) ago. Duration: the symptoms are continuous. Aggravated by nothing. Alleviated by nothing. Associated signs and symptoms: Pertinent positives: None. Patient has left prosthectic. Severity of symptoms: At their worst the symptoms were mild in the emergency department the symptoms are unchanged. The patient has not experienced similar symptoms in the past. Historical: - Allergies: :43 Codeine; wh - Home Meds: :43 "unknown hypertension medication" [Active]; alprazolam 1 mg Oral tab 1 tab twice a day [Active]; Aspir-81 81 mg Oral TbEC 1 tab once daily [Active]; Metoprolol Tartrate Oral for Hypertension [Active]; - PMHx: :43 Hypertension; left eye prosthetic; left leg prosthetic; wh - Immunization history:: Adult Immunizations not up to date. - Social history:: Smoking status: Patient reports the use of cigarette tobacco products, smokes one-half pack cigarettes per day. - Family history:: not pertinent. ROS: 02:04 Constitutional: Negative for fever, chills, and weight loss, ENT: Negative for injury, [place] pain, and discharge, Neck: Negative for injury, pain, and swelling, Cardiovascular: Negative for chest pain, palpitations, and edema, Respiratory: Negative for shortness of breath, cough, wheezing, and pleuritic chest pain, Abdomen/GI: Negative for abdominal pain, nausea, vomiting, diarrhea, and constipation, Back: Negative for injury and pain, : Negative for injury, bleeding, discharge, and swelling, MS/Extremity: Negative for injury and deformity, Skin: Negative for injury, rash, and discoloration, Neuro: Negative for headache, weakness, numbness, tingling, and seizure, Psych: Negative for depression, anxiety, suicide ideation, homicidal ideation, and hallucinations, Allergy/Immunology: Negative for hives, rash, and allergies, Endocrine: Negative for neck swelling, polydipsia, polyuria, polyphagia, and marked weight changes, Hematologic/Lymphatic: Negative for swollen nodes, abnormal bleeding, and unusual bruising. 02:04 Eyes: Positive for redness, left eye drainage. Exam: 02:04 Constitutional: This is a well developed, well nourished patient who is awake, alert, [place] and in no acute distress. Head/Face: Normocephalic, atraumatic. ENT: Nares patent. No nasal discharge, no septal abnormalities noted. Tympanic membranes are normal and external auditory canals are clear. Oropharynx with no redness, swelling, or masses, exudates, or evidence of obstruction, uvula midline. Mucous membranes moist. Neck: Trachea midline, no thyromegaly or masses palpated, and no cervical lymphadenopathy. Supple, full range of motion without nuchal rigidity, or vertebral point tenderness. No Meningismus. Chest/axilla: Normal chest wall appearance and motion. Nontender with no deformity. No lesions are appreciated. Cardiovascular: Regular rate and rhythm with a normal S1 and S2. No gallops, murmurs, or rubs. Normal PMI, no JVD. No pulse deficits. Respiratory: Lungs have equal breath sounds bilaterally, clear to auscultation and percussion. No rales, rhonchi or wheezes noted. No increased work of breathing, no retractions or nasal flaring. Abdomen/GI: Soft, non-tender, with normal bowel sounds. No distension or tympany. No guarding or rebound. No evidence of tenderness throughout. Back: No spinal tenderness. No costovertebral tenderness. Full range of motion. Female : Normal external genitalia. Skin: Warm, dry with normal turgor. Normal color with no rashes, no lesions, and no evidence of cellulitis. MS/ Extremity: Pulses equal, no cyanosis. Neurovascular intact. Full, normal range of motion. Neuro: Awake and alert, GCS 15, oriented to person, place, time, and situation. Cranial nerves II-XII grossly intact. Motor strength 5/5 in all extremities. Sensory grossly intact. Cerebellar exam normal. Normal gait. Psych: Awake, alert, with orientation to person, place and time. Behavior, mood, and affect are within normal limits. 02:04 Eyes: prosthetic removed, culture taken. 03:38 ECG was reviewed by the Attending Physician. [facility] Vital Signs: 01:38 BP 213 / 122; Pulse 96; Resp 18; Temp 98.2; Pulse Ox 99% ; Weight 42.64 kg; Height 5 wh ft. 2 in. (157.48 cm); 03:39 BP 153 / 92; Pulse 70; Resp 18; Pulse Ox 99% on R/A; wh 01:38 Body Mass Index 17.19 (42.64 kg, 157.48 cm) wh MDM: 01:43 Patient medically screened. [facility] 03:34 Differential diagnosis: Foreign body in Infectious conjunctivitis in. Data reviewed: [facility] vital signs, nurses notes, lab test result(s), EKG. Data interpreted: athletic monitor: rate is 96 beats/min, rhythm is regular. Test interpretation: by ED physician or midlevel provider: ECG. Counseling: I had a detailed discussion with the patient and/or guardian regarding: the historical points, exam findings, and any diagnostic results supporting the discharge/admit diagnosis, lab results. 11/14 01:58 Order name: Wound Culture 11/14 02:04 Order name: CBC with Diff [facility] 11/14 02:04 Order name: Comprehensive Metabolic Panel [facility] 11/14 02:04 Order name: Urine Culture [facility] 11/14 02:04 Order name: UDS [facility] 11/14 02:05 Order name: CBC with Automated Diff; Complete Time: 03:31 EDPA 11/14 02:05 Order name: Comprehensive Metabolic Panel [facility] 11/14 02:05 Order name: Urine Culture [facility] 11/14 02:05 Order name: Urine Drug Screen; Complete Time: 03:31 EDPA 11/14 02:47 Order name: Urine Dipstick--Ancillary (enter results); Complete Time: 03:31 mw2 11/14 02:04 Order name: Urine Dipstick-Ancillary (obtain specimen); Complete Time: 02:45 [facility] 11/14 02:09 Order name: EKG; Complete Time: 02:09 [facility] 11/14 02:09 Order name: EKG - Nurse/Tech; Complete Time: 02:35 [facility] 11/14 03:36 Order name: Vital Signs; Complete Time: 03:40 [facility] EC:38 Rate is 80 beats/min. Rhythm is regular. QRS [place] is Normal. MT interval is normal. QRS [place] interval is normal. QT interval is normal. No Q waves. T waves are Normal. No ST changes noted. Clinical impression: Normal ECG and No evidence of ischemia. Interpreted by me. Reviewed by me. Administered Medications: 02:34 Drug: Bactrim (160 mg-800 mg (DS) 1 tablet Route: PO; rv 03:38 Follow up: Response: No adverse reaction 02:35 Drug: Doxycycline 100 mg Route: PO; rv 03:38 Follow up: Response: No adverse reaction 02:35 Drug: HydrALAZINE 25 mg Route: PO; rv 03:38 Follow up: Response: No adverse reaction; Blood pressure is lowered 02:35 Drug: Lopressor (metoprolol TARTRATE) 50 mg Route: PO; rv 03:38 Follow up: Response: No adverse reaction; Blood pressure is lowered Disposition: 11/14/20 03:33 Discharged to Home. Impression: Infection and inflammatory reaction due to other internal prosthetic devices, implants and grafts - left prosthetic eye, Essential (primary) hypertension, Tobacco abuse counseling, Tobacco use, Adverse effect of amphetamines. - Condition is Stable. - Discharge Instructions: Stimulant Use Disorder-Amphetamines, Hypertension, Smoking Hazards, Hypertension, Paxf-vk-Post, Stimulant Use Disorder-Methamphetamines, Steps to Quit Smoking, [id number], How to Take Your Blood Pressure, Lxwl-[id number], Aspirin and Your Heart, Managing Your Hypertension. - Prescriptions for hydralazine 100 mg Oral tablet - take 1 tablet by ORAL route 3 times per day; 90 tablet. Toprol XL 50 mg Oral Tablet - take 1 tablet by ORAL route once daily; 20 tablet. Doxycycline Hyclate 100 mg Oral Tablet - take 1 tablet by ORAL route every 12 hours; 20 tablet. Bactrim DS 800- 160 mg Oral Tablet - take 1 tablet by ORAL route every 12 hours for 10 days; 20 tablet. - Medication Reconciliation Form, Thank You Letter, Antibiotic Education, Prescription Opioid Use form. - Follow up: Private Physician; When: 2 - 3 days; Reason: Recheck today's complaints, Continuance of care, Re-evaluation by your physician. Follow up: French Lala; When: 2 - 3 days; Reason: Recheck today's complaints, Re-evaluation by your physician. - Problem is new. - Symptoms have improved. Signatures: Dispatcher [employer] EDMS Av Arevalo MD MD cha Habalo, Winsy, RN RN wh Stone Tucker, RN RN rv Corrections: (The following items were deleted from the chart) 03:57 03:33 11/14/2020 03:33 Discharged to Home. Impression: Infection and inflammatory wh reaction due to other internal prosthetic devices, implants and grafts - left prosthetic eye; Essential (primary) hypertension; Tobacco abuse counseling; Tobacco use; Adverse effect of amphetamines. Condition is Stable. Discharge Instructions: Hypertension, Smoking Hazards, Hypertension, [id number], Steps to Quit Smoking, Rzso-ew-[id number], How to Take Your Blood Pressure, Xykr-ih-Vgay, Aspirin and Your Heart, Managing Your Hypertension. Prescriptions for hydralazine 100 mg Oral tablet - take 1 tablet by ORAL route 3 times per day; 90 tablet, Toprol XL 50 mg Oral Tablet - take 1 tablet by ORAL route once daily; 20 tablet, Doxycycline Hyclate 100 mg Oral Tablet - take 1 tablet by ORAL route every 12 hours; 20 tablet, Bactrim DS 800-160 mg Oral Tablet - take 1 tablet by ORAL route every 12 hours for 10 days; 20 tablet. and Forms are Medication Reconciliation Form, Thank You Letter, Antibiotic Education, Prescription Opioid Use. Follow up: Private Physician; When: 2 - 3 days; Reason: Recheck today's complaints, Continuance of care, Re-evaluation by your physician. Follow up: French Lala; When: 2 - 3 days; Reason: Recheck today's complaints, Re-evaluation by your physician. Problem is new. Symptoms have improved. [place]
[2020-11-14 03:44] LABS: ALT/SGPT 22 U/L (12-78); AST/SGOT 16 U/L (15-37); Albumin 3.9 g/dL (3.4-5.0); BUN Blood Urea Nitrogen 28 mg/dL (7-18); Bicarbonate 30 mmol/L (21-32); Bilirubin Total 0.4 mg/dL (0.2-1.0); Glucose Level 94 mg/dL (74-106); Potassium 3.8 mmol/L (3.5-5.1); Protein, Total 7.3 g/dL (6.4-8.2); Sodium Level 144 mmol/L (136-145)
[2020-11-14 03:45] LABS: Alkaline Phosphatase ND U/L (45-117)
[2020-11-14 04:06] VITALS: TEMP 98.2; O2SAT 99
[2020-11-14 04:07] VITALS: BP 153/92
== END 2020-11-14 03:57 | disposition home or self-care (01) ==
LOC: ER 01:32
DX: T84.7XXA Infection and inflammatory reaction due to other internal orthopedic prosthetic devices, implants and grafts, initial encounter (principal); T43.625A Adverse effect of amphetamines, initial encounter; I10 Essential (primary) hypertension; Z72.0 Tobacco use; Z71.6 Tobacco abuse counseling; Z88.5 Allergy status to narcotic agent
CPT/HCPCS: 36415; 80053; 80307; 81003; 85025; 87070; 87077; 87086; 87088; 87186; 87205; 93005; 99284

== ENCOUNTER 2022-02-09 18:10 | Emergency (ER) | payer OTHER ==
--- OUTSIDE RECORDS SUMMARY | 2022-02-09 18:14 | XMS REPORT | Continuity of Care Document ---
:1960 Author Organization [facility] t Address [facility] [place] [address] Care Team Providers Name Role Phone AVILES Primary Care Physician Unavailable HORACE Attending Clinician Unavailable RIVKA Attending Clinician Unavailable Jose Raul ACEVEDO S Attending Clinician Cintia XIE L Attending Clinician Attending Clinician Unavailable Payers Payer Name Policy Type Policy Number Effective Date Expiration Date S sarah [employer] MEDICARE [id number] 2020 ADVANTAGE PPO 00:00:00 Problems Condition Condition Condition Status Onset Resolution Last Treating Co mments Source Name Details Category Date Date Treatment Clinician Date Unspecifie Unspecifie Disease Active U aravind d severe d severe 8-10 ity of protein-ca protein-ca 00:00: [place] rodger gambino 00 Medical malnutriti malnutriti Br anch on on PAD PAD Disease Active Overview: Univbertha s (periphera (periphera 6-30 Formattin ity of l artery l artery 00:00: g of this [place] disease) disease) 00 note Medica l might be Branch different from the original. Added automatic ally from request for surgery [id number] Depression Depression Disease Active U nivers -22 ity of 00:00: [place] 00 Medical Branch Anxiety Anxiety Disease Active Univers 1-21 ity of 00:00: [place] 00 Medical Branch Lung Lung Disease Active Univers nodule nodule 1-21 ity of 00:00: [place] [facility] Chest pain Chest pain Disease Active U nivers 1-18 ity of 00:00: [place] 00 Medical Branch Migraine Migraine Disease Active Unive rs 7-14 ity of 00:00: [place] 00 Medical Branch Hypertensi Hypertensi Disease Active U nivers on on 7-12 ity of 00:00: [place] [facility] Hypertensi Hypertensi Disease Active U nivers ve urgency ve urgency 7-12 it y of 00:00: [place] 00 Medical Branch Weakness Weakness Disease Active Unive rs 7-12 ity of 00:00: [place] 00 Medical Branch Headache Headache Disease Active Unive rs 7-12 ity of 00:00: [place] 00 Medical Branch Carpal Carpal Disease Active Univers tunnel tunnel 6-14 ity of syndrome syndrome 00:00: [place] on both on both 00 Medical sides sides Branch Coronary Coronary Disease Active Unive rs artery artery 6-06 ity of disease disease 00:00: [place] involving involving 00 Medi [place] Branch coronary coronary artery artery without without angina angina pectoris pectoris Anticoagul Anticoagul Disease Active U nivers ant ant 6-06 ity of long-term long-term 00:[place] use [place] Ischemic Ischemic Disease Active Unive rs pain of pain of 3-30 ity of right [place] S/P AKA S/P AKA Disease Active Univers (above (above 8-07 ity of knee knee 00:00: [place] amputation amputation 00 Me dical ) ) Branch unilateral unilateral , left , left Peripheral Peripheral Disease Active Overview : Univers vascular vascular 8-07 Formattin ity of disease disease 00:00: g of this [place] 00 note Medical might be Branch different from the original. ICD10 Diagnosis Term Intensivist Utility S/P BKA S/P BKA Disease Active Overview: Univ ers (below (below 7-17 Formattin ity of knee knee 00:00: g of this [place] amputation amputation 00 note Me dical ) ) might be Branch unilateral unilateral different from the original. Left Ischemic Ischemic Disease Active Unive rs leg, Left leg, Left 03-12 ity of 00:00: [place] 00 Medical Branch Mechanical Mechanical Disease Active Overview : Univers complicati complicati 03-12 Formattin ity of on of on of 00:00: g of this [place] other other 00 note Medical vascular vascular might be Bran ch device, device, different implant, implant, from the and graft and graft original. 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 Allergies, Adverse Reactions, Alerts Allergy Allergy Status Severity Reaction(s) Onset Inactive Treating Comm ents Source Name Type Date Date Clinician Codeine Propensi Active Itching itching Unive rs ty to 03-11 ity of adverse 00:00: [place] reaction 00 Medical s to Branch drug CODEINE DRUG Active ITCHING Univers INGREDI 03-11 ity of 00:00: [place] 00 Medical Branch Social History Social Habit Start Date Stop Date Quantity Comments Source History SDFL University o f Alcohol Frequency [facility] Branch Exposure to Not sure [place] of SARS-CoV-2 (event) [facility] Branch History SDFL University o f Alcohol Std Drinks [facility] Branch History [facility] o f Alcohol Binge [place] Medic al Branch Alcohol intake 2021-12-03 2021-12-03 Current drinker Unive rsity of 00:00:00 00:00:00 of alcohol [facility] (finding) Branch Cigarettes smoked 2016-12-24 2016-12-24 Univers ity of current (pack per 00:00:00 00:00:00 [facility]) - Reported Branch Tobacco use and 2016-12-24 2016-12-24 Never used Universit y of exposure 00:00:00 00:00:00 [facility] Alcohol Comment 2011-03-11 2011-03-11 daily Universit y of 00:00:00 00:00:00 [facility] History of tobacco 2010-12-10 Cigarette Smoker University of use 00:00:00 [facility] Sex Ass[birth year] At [birth year] Universit y of 00:00:00 00:00:00 [facility] Smoking Status Start Date Stop Date Source Current every day smoker 2016-12-24 00:00:00 Uni versity of [facility] Medications Ordered Filled Start Stop Current Ordering Indication Dosage Frequency Signature Comments Components Source Medication Medication Date Date Medication? Clinician (SIG) Name Name cilostazoL Yes [id number] 100mg Take 1 Univers 100 mg 4-06 tablet by ity of tablet 00:00: mouth 2 [place] 00 (two) Medical times Branch daily. aspirin 81 Yes 81mg Take 81 mg U nivers mg tablet 3-01 by mouth ity of 16:14: daily. [place] 04 Medical Branch oxybutynin Yes 5mg Take 5 mg Un gisele chloride 5 3-01 by mouth 2 ity of mg tablet 16:14: (two) [place] 04 times Medical daily. Branch ALPRAZolam Yes .5mg Take 0.5 Uni vers 0.5 mg 3-01 mg by ity of tablet 16:14: mouth at [place] [id number] bedtime as Medical needed. Branch chlorphenir Yes [id number] 4mg Take 1 Univers amine 4 mg 9-16 tablet by ity of tablet 00:00: mouth [place] 00 every 6 Medical (six) Branch hours as needed for Allergies or Runny nose. calcium/mag Yes [id number] 1{each} Take 1 Univers nesium/zinc 9-16 Each by ity o f (CALCIUM-MA 00:00: mouth [place] GNESUIUM-ZI 00 daily. Medica l NC) Branch 333-133-5 mg Tab benzonatate Yes [id number] 100mg Take 1 Univers 100 mg 9-16 capsule by ity of capsule 00:00: mouth 3 [place] 00 (three) Medical times Branch daily as needed for Cough. CYANOCOBALA 2017-08 Yes Take by Un gisele MIN, 2-27 mouth ity of VITAMIN 20:27: daily. [place] B-12, 32 Medical (VITAMIN Branch B-12 ORAL) IBUPROFEN 2017-08 Yes 200mg Take 200 Uni vers ORAL 2-27 mg by ity of 20:27: mouth 2 [place] 32 (two) Medical times Branch daily. Indication s: 3tabs traMADOL 2017-08 Yes 100mg Take 2 Univer s (ULTRAM) 50 2-27 tablets by it y of mg tablet 00:00: mouth [place] 00 every 8 Medical (eight) Branch hours as needed (severe pain; alternate with tylenol). pregabalin Yes 100mg Take 1 Univ ers (LYRICA) 9-15 capsule by ity o f 100 mg 00:00: mouth 3 [place] capsule 00 (three) Medical times Branch daily. HYDROcodone Yes 1{tbl} Take 1 Un gisele -acetaminop 9-15 tablet by ity of hen (NORCO) 00:00: mouth [place] 10-325 mg 00 every 6 Medical tablet (six) Branch hours as needed for Pain (scale 7-10). carvedilol Yes 12.5mg Take 1 Uni vers 12.5 mg 6-07 tablet by ity of tablet 00:00: mouth 2 [place] 00 (two) Medical times Branch daily with meals. amLODIPine Yes 10mg Take 1 Unive rs 10 mg 6-07 tablet by ity of tablet 00:00: mouth [place] 00 daily. Medical Branch hydralAZINE Yes 50mg Take 1 Univ ers 50 mg 6-07 tablet by ity of tablet 00:00: mouth 3 [place] 00 (three) Medical times Branch daily. atorvastati Yes 40mg Take 1 Univ ers n 40 mg 6-07 tablet by ity of tablet 00:00: mouth at [place] 00 bedtime. Medical Branch albuterol 2016-08 Yes 2.5mg Inhale 3 Uni vers 2.5 mg /3 1-27 mL every 4 ity of mL (0.083 00:00: (four) [place] %) 00 hours as Medical nebulizer needed for Bran ch solution Wheezing or Shortness of Breath. tiotropium 2016-08 Yes 18ug Inhale 1 Uni vers 18 mcg 1-27 capsule ity of inhalation 00:00: daily. [place] 00 Medical Branch albuterol 2016-08 Yes 2{puff} Inhale 2 U nivers 90 1-27 Puffs ity of mcg/actuati 00:00: every 4 [place] on inhaler 00 (four) Medical hours as Branch needed for Wheezing or Shortness of Breath. ceFAZolin Yes 1g Univers (ANCEF) 1 g 7-06 ity of in NaCl 11:00: [place] 0.9% (NS) 00 Medical 50 mL Branch MINI-BAG acetaminoph Yes 650mg Take 2 Uni vers en 7-14 tablets by ity of (TYLENOL) 00:00: mouth [place] 325 mg 00 every 6 Medical tablet (six) Branch hours as needed for Pain (scale 1-3). Immunizations Ordered Filled Immunization Date Status Comments Sour e Immunization Name Name Td 2018-08-23 Completed University 00:00:00 [facility] Influenza Virus 2017-06-25 Completed Universit y of Vaccine - Whole 00:00:00 [facility] ical Branch Pneumococcal 13 2017-06-25 Completed Universit y of Conjugate, PCV13 00:00:00 [facility] dical (Prevnar 13) [place] Vital Signs Vital Name Observation Time Observation Value Comments Source Systolic blood 2021-12-08 20:47:00 205 mm[Hg] Univer sity [facility] Diastolic blood 2021-12-08 20:47:00 100 [facility]Hg[facility] 2021-12-08 20:47:00 101 /min [facility] Body height 2021-12-08 20:46:00 157.5 cm [facility] Body weight 2021-12-08 20:46:00 49.896 kg [facility] BMI 2021-12-08 20:46:00 20.12 kg/m2 [facility] Procedures This patient has no known procedures. Encounters Start End Encounter Admission Attending Care Care Encounter Source Date/Time Date/Time Type Type Clinicians Facility Department ID 2022-02-09 Outpatient [facility] [id number] 10-19 [place] 13:17:05 DANA Chauhan [id number] Charbel [facility] 2021-12-24 2021-12-24 Outpatient [facility] [id number] 00:00:00 00:00:00 RENETTA 192 Method i 2021-12-24 2021-12-24 Outpatient [facility] [id number] 00:00:00 00:00:00 RENETTA Nance4 Method i 2021-12-08 2021-12-08 Office Dereje Blunt [facility] [id number] [facility] 15:15:00 16:20:40 Visit ChamberlainYang kowalski [facility] [id number] ity etelvina [place] [id number] [place] ARIEL?BLEA [id number] Sc dical KNEY 198 Branch MEDICAL OFFICE BUILDING 2021-12-03 2021-12-03 Emergency X SINGER [facility] ERT [id number] [facility] 15:30:00 16:32:00 TATYANA freire of [facility] Results This patient has no known results.
--- NOTE | 2022-02-09 19:10 | ER ---
Nurse's Notes [facility] Name: Alessia Razo Age: 61 yrs Sex: Female : 1960 Arrival Date: 02/09/2022 Time: 18:14 Bed Waiting Private MD: Diagnosis: Presentation: 02/09 18:14 Chief complaint: Patient states: Difficulty breathing that began suddenly while over ss exerting herself outside. PT feels much better after talking to EMS. Coronavirus screen: Client denies travel out of the [place] in the last 14 days. Ebola Screen: Patient denies exposure to infectious person. Patient denies travel to an Ebola-affected area in the 21 days before illness onset. Initial Sepsis Screen: Does the patient meet any 2 criteria? No. Patient's initial sepsis screen is negative. Does the patient have a suspected source of infection? No. Patient's initial sepsis screen is negative. Risk Assessment: Do you want to hurt yourself or someone else? Patient reports no desire to harm self or others. Onset of symptoms was February 09, 2022. 18:14 Method Of Arrival: EMS: [facility] 18:14 Acuity: CAREY 3 ss Historical: - Allergies: 19:14 Codeine; ss - PMHx: 19:14 Hypertension; left eye prosthetic; left leg prosthetic; Assessment: 19:12 Reassessment: IV dc'd. Pressure dressing in place. Pt states she is feeling better and ss does not want to wait as her ride is here. NAD at this time. Pt states, "It was just a panic attack. I just got overexerted and hot. I feel better now.". Vital Signs: 18:14 Resp 16; Pain 0/10; ED Course: 18:14 Patient arrived in ED. jj6 19:12 Triage completed. ss Administered Medications: No medications were administered Medication: 19:14 VIS not applicable for this client. Outcome: 19:10 Patient left the ED. vg1 Signatures: Ashlee Pruett, RN RN Karen Barroso RN RN vg1 Mey Valle jj6
== END 2022-02-09 19:10 | disposition left against medical advice (07) ==
LOC: ER 18:10
DX: R06.02 Shortness of breath (principal); Z88.6 Allergy status to analgesic agent; I10 Essential (primary) hypertension; Z53.21 Procedure and treatment not carried out due to patient leaving prior to being seen by health care provider
CPT/HCPCS: 99282

== ENCOUNTER 2022-03-02 23:29 | Emergency (ER) | payer OTHER ==
[2022-03-02 23:36] LABS: Arterial Blood Carboxyhemoglob 3.8 % (0-1.5); Blood Gas Oxyhemoglobin 94.9 % (94-97); Blood O2 Saturation 99.8 % (92-98.5)
[2022-03-02] MEDS ORDERED: NA CHLORIDE 0.9% 1,000 ML ONE (23:45)
[2022-03-02] MEDS ORDERED: THIAMINE 200 MG/2 ML INJ ONE (23:45)
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
[2022-03-03 02:30] VITALS: O2SAT 98
--- NOTE | 2022-03-03 12:13 | RAD REPORT ---
EXAM DESCRIPTION: RAD - Chest Single View - 03/02/2022 11:52 pm CLINICAL HISTORY: 61 years, Female, Cough COMPARISON: None. FINDINGS: Single view of the chest was obtained portable. No prior films are available for compariso n. The cardiomediastinal silhouette demonstrate to be unremarkable. The heart is not enlarged. The thoracic aorta is unremarkable. Costophrenic angles are sharp. No areas of consolidation or masses are seen. The rest of the soft tissue and bony structures demonstrate to be unremarkable. IMPRESSION: NO ACUTE CARDIOPULMONARY DISEASE SEEN. Electronically signed by: Yang Singh MD 03/03/2022 12:09 AM CDT Due to temporary technical issues with the PACS/Fluency reporting system, reports are being signed by the in house radiologist without review as a courtesy to ensure prompt reporting. The interpreting r adiologist is fully responsible for the content of the report.
--- NOTE | 2022-03-03 12:20 | RAD REPORT ---
EXAM DESCRIPTION: CT - Head Brain Wo Cont - 03/03/2022 6:56 am CLINICAL HISTORY: 61 years, Female, Mental status change, persistent or worsening COMPARISON: None. FINDINGS: Multiple transaxial tomograms of the brain were obtained from the base of the skull to the vertex without contrast. 2-D multiplanar reformats and the coronal and sagittal plane were performed and reviewed. This exam was performed according to our departmental dose-optimization protocol, which includes auto mated exposure control, adjustment of the mA and/or kV according to patient size and/or use of iterat sanjuana reconstruction technique. Brain parenchyma demonstrate mild prominence of the sulci and gyri are corresponding to mild cerebral and cerebellar atrophy. There is no midline shift and/or mass effect. There is no evidence for acute intracranial hemorrhage. Lateral ventricles and cisterns displace normal appearance. No intra or extra axial fluid collections were seen. The calvarium is intact with no evidence for fracture. The visualized portions of the paranasal sinuses and right orbit demonstrate to be clear. 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 Mild brain atrophy. Electronically signed by: Yang Singh MD 03/03/2022 12:11 AM CDT Due to temporary technical issues with the PACS/Fluency reporting system, reports are being signed by the in house radiologist without review as a courtesy to ensure prompt reporting. The interpreting r adiologist is fully responsible for the content of the report.
== END 2022-03-03 01:14 | disposition home or self-care (01) ==
LOC: ER 23:29
DX: F10.129 Alcohol abuse with intoxication, unspecified (principal); W69.XXXA Accidental drowning and submersion while in natural water, initial encounter; F17.210 Nicotine dependence, cigarettes, uncomplicated; Z88.5 Allergy status to narcotic agent; Z53.29 Procedure and treatment not carried out because of patient's decision for other reasons
CPT/HCPCS: 70450; 71045; 82805; J3411; J7030; 99284

== ENCOUNTER 2022-06-22 21:45 | Observation (INO) | payer OTHER ==
--- OUTSIDE RECORDS SUMMARY | 2022-06-22 21:50 | XMS REPORT | Continuity of Care Document ---
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 (six) Branch hours as needed for Allergies or Runny nose. calcium/mag 2021- No [id number] 1{each} Take 1 Univers nesium/zinc 9-16 07-14 Each by ity of (CALCIUM-MA 00:00: 00:[place] GNESUIUM-ZI 00 :00 daily. Medica l [place]) Branch 333-133-5 mg Tab benzonatate 2021- No [id number] 100mg Take 1 Univers 100 mg 9-16 07-14 capsule by ity of capsule 00:00: 00:00 mouth 3 [place] 00 :00 (three) Medical times Branch daily as needed for Cough. CYANOCOBALA 2017-08 Yes Take by Uni vers MIN, 2-27 mouth ity of VITAMIN 20:27: daily. [place] B-12, 32 Medical (VITAMIN Branch B-12 ORAL) [...] as needed (severe pain; alternate with tylenol). traMADOL 2017-08- No 100mg Take 2 Unive rs (ULTRAM) 50 2-27 07-14 tablets by i ty of mg tablet 00:00: 00:00 mouth [place] 00 :00 every 8 Medical (eight) Branch hours as needed (severe pain; alternate with tylenol). pregabalin 2018-0 Yes 100mg Take 1 Univ ers (LYRICA) 9-15 capsule by ity o f 100 mg 00:00: mouth 3 [place] capsule 00 (three) Medical times Branch daily. HYDROcodone 2018-0 Yes 1{tbl} Take 1 Un gisele -acetaminop 9-15 tablet by ity of hen (NORCO) 00:00: mouth [place] 10-325 mg 00 every 6 Medical tablet (six) Branch hours as needed for Pain (scale 7-10). pregabalin 2018-0 Yes 100mg Take 1 Univ ers (LYRICA) 9-15 capsule by ity o f 100 mg 00:00: mouth 3 [place] capsule 00 (three) Medical times Branch daily. pregabalin 2018-0 Yes 100mg Take 1 Univ ers (LYRICA) 9-15 capsule by ity o f 100 mg 00:00: mouth 3 [place] capsule 00 (three) Medical times Branch daily. pregabalin 2018-0 Yes 100mg Take 1 Univ ers (LYRICA) 9-15 capsule by ity o f 100 mg 00:00: mouth 3 [place] capsule 00 (three) Medical times Branch daily. pregabalin 2018-0 Yes 100mg Take 1 Univ ers (LYRICA) 9-15 capsule by ity o f 100 mg 00:00: mouth 3 [place] capsule 00 (three) Medical times Branch daily. pregabalin 2018-0 Yes 100mg Take 1 Univ ers (LYRICA) 9-15 capsule by ity o f 100 mg 00:00: mouth 3 [place] capsule 00 (three) Medical times Branch daily. pregabalin 2018-0 Yes 100mg Take 1 Univ ers (LYRICA) 9-15 capsule by ity o f 100 mg 00:00: mouth 3 [place] capsule 00 (three) Medical times Branch daily. HYDROcodone 2018-2021- No 1{tbl} Take 1 U nivers -acetaminop 9-15 07-14 tablet by it y of hen (NORCO) 00:00: 00:00 [place] 10-325 mg 00 :00 every 6 Medical tablet (six) Branch hours as needed for Pain (scale 7-10). carvedilol 2018-0 Yes 12.5mg Take 1 Uni vers 12.5 mg 6-07 tablet by ity of tablet 00:00: mouth 2 (two) Medical times Branch daily with meals. amLODIPine 2017-0 Yes 10mg Take 1 Unive rs 10 mg 6-07 tablet by ity of tablet 00:00: mouth daily. Medical Branch hydralAZINE 2017-0 Yes 50mg Take 1 Univ ers 50 mg 6-07 tablet by ity of tablet 00:00: mouth 3 (three) Medical times Branch daily. atorvastati 2017-0 Yes 40mg Take 1 Univ ers n 40 mg 6-07 tablet by ity of tablet 00:00: mouth at [place] bedtime. Medical Branch amLODIPine 2017-0 Yes 10mg Take 1 Unive rs 10 mg 6-07 tablet by ity of tablet 00:00: mouth daily. Medical Branch atorvastati 2017-0 Yes 40mg Take 1 Univ ers n 40 mg 6-07 tablet by ity of tablet 00:00: mouth at [place] bedtime. Medical Branch amLODIPine 2017-0 Yes 10mg Take 1 Unive rs 10 mg 6-07 tablet by ity of tablet 00:00: mouth daily. Medical Branch atorvastati 2018-0 Yes 40mg Take 1 Univ ers n 40 mg 6-07 tablet by ity of tablet 00:00: mouth at [place] bedtime. Medical Branch amLODIPine 2018-0 Yes 10mg Take 1 Unive rs 10 mg 6-07 tablet by ity of tablet 00:00: mouth daily. Medical Branch atorvastati 2018-0 Yes 40mg Take 1 Univ ers n 40 mg 6-07 tablet by ity of tablet 00:00: mouth at [place] bedtime. Medical Branch amLODIPine 2018-0 Yes 10mg Take 1 Unive rs 10 mg 6-07 tablet by ity of tablet 00:00: mouth daily. Medical Branch atorvastati 2018-0 Yes 40mg Take 1 Univ ers n 40 mg 6-07 tablet by ity of tablet 00:00: mouth at [place] bedtime. Medical Branch amLODIPine 2017-0 Yes 10mg Take 1 Unive rs 10 mg 6-07 tablet by ity of tablet 00:00: mouth [place] 00 daily. Medical Branch atorvastati Yes 40mg Take 1 Univ ers n 40 mg 6-07 tablet by ity of tablet 00:00: mouth at [place] 00 bedtime. Medical Branch amLODIPine Yes 10mg Take 1 Unive rs 10 mg 6-07 tablet by ity of tablet 00:00: mouth [place] 00 daily. Medical Branch atorvastati Yes 40mg Take 1 Univ ers n 40 mg 6-07 tablet by ity of tablet 00:00: mouth at [place] 00 bedtime. Medical Branch amLODIPine Yes 1{tbl} QD Take 1 Met hodi (NORVASC) 6-[address] 10 mg 00:00: [facility] tablet 00 daily. l atorvastati Yes 1{tbl} QD Take 1 Me thodi n (LIPITOR) 6-[address] 40 mg 00:00: mouth [facility] tablet 00 nightly. l carvediloL Yes 12.5mg Q.5D Take 12.5 Method[facility] (COREG) 6-[address] 12.5 MG 00:00: mouth 2 [facility] tablet 00 (two) l times a day with meals. carvedilol No 12.5mg Take 1 Un gisele 12.5 mg 6-07 07-14 tablet by ity of tablet 00:00: 00:00 mouth 2 [place] 00 :00 (two) Medical times Branch daily with meals. hydralAZINE No 50mg Take 1 Uni vers 50 mg 6-07 07-14 tablet by ity of tablet 00:00: 00:00 mouth 3 [place] 00 :00 (three) Medical times Branch daily. albuterol 2016-08 Yes 2.5mg Inhale 3 Uni vers 2.5 mg /3 1-27 mL every 4 ity of mL (0.083 00:00: (four) [place] %) 00 hours as Medical nebulizer needed for Bran ch solution Wheezing or Shortness of Breath. tiotropium 2016-08 Yes 18ug Inhale 1 Uni vers 18 mcg 1-27 capsule ity of inhalation 00:00: daily. 00 Medical Branch albuterol 2016-08 Yes 2{puff} Inhale 2 U nivers 90 1-27 Puffs ity of mcg/actuati 00:00: every 4 [place] on inhaler 00 (four) Medical hours as Branch needed for Wheezing or Shortness of Breath. albuterol 2016-08 Yes 2.5mg Inhale 3 Uni vers 2.5 mg /3 1-27 mL every 4 ity of mL (0.083 00:00: (four) [place] %) 00 hours as Medical nebulizer needed for Bran ch solution Wheezing or Shortness of Breath. tiotropium 2016-08 Yes 18ug Inhale 1 Uni vers 18 mcg 1-27 capsule ity of inhalation 00:00: daily. Medical Branch albuterol 2016-08 Yes 2{puff} Inhale 2 U nivers 90 1-27 Puffs ity of mcg/actuati 00:00: every 4 [place] on inhaler 00 (four) Medical hours as Branch needed for Wheezing or Shortness of Breath. albuterol 2016-08 Yes 2.5mg Inhale 3 Uni vers 2.5 mg /3 1-27 mL every 4 ity of mL (0.083 00:00: (four) [place] %) 00 hours as Medical nebulizer needed for Bran ch solution Wheezing or Shortness of Breath. tiotropium 2016-08 Yes 18ug Inhale 1 Uni vers 18 mcg 1-27 capsule ity of inhalation 00:00: daily. [place] Medical Branch albuterol 2016-08 Yes 2{puff} Inhale 2 U nivers 90 1-27 Puffs ity of mcg/actuati 00:00: every 4 [place] on inhaler 00 (four) Medical hours as Branch needed for Wheezing or Shortness of Breath. albuterol 2016-08 Yes 2.5mg Inhale 3 Uni vers 2.5 mg /3 1-27 mL every 4 ity of mL (0.083 00:00: (four) [place] %) 00 hours as Medical nebulizer needed for Bran ch solution Wheezing or Shortness of Breath. tiotropium 2016-08 Yes 18ug Inhale 1 Uni vers 18 mcg 1-27 capsule ity of inhalation 00:00: daily. [place] Medical Branch albuterol 2016-08 Yes 2{puff} Inhale 2 U nivers 90 1-27 Puffs ity of mcg/actuati 00:00: every 4 [place] on inhaler 00 (four) Medical hours as Branch needed for Wheezing or Shortness of Breath. albuterol 2016-08 Yes 2.5mg Inhale 3 Uni vers 2.5 mg /3 1-27 mL every 4 ity of mL (0.083 00:00: (four) [place] %) 00 hours as Medical nebulizer needed for Bran ch solution Wheezing or Shortness of Breath. tiotropium 2016-08 Yes 18ug Inhale 1 Uni vers 18 mcg 1-27 capsule ity of inhalation 00:00: daily. [place] Medical Branch albuterol 2016-08 Yes 2{puff} Inhale 2 U nivers 90 1-27 Puffs ity of mcg/actuati 00:00: every 4 [place] on inhaler 00 (four) Medical hours as Branch needed for Wheezing or Shortness of Breath. albuterol 2016-08 Yes 2.5mg Inhale 3 Uni vers 2.5 mg /3 1-27 mL every 4 ity of mL (0.083 00:00: (four) [place] %) 00 hours as Medical nebulizer needed for Bran ch solution Wheezing or Shortness of Breath. tiotropium 2016-08 Yes 18ug Inhale 1 Uni vers 18 mcg 1-27 capsule ity of inhalation 00:00: daily. [place] Medical Branch albuterol 2016-08 Yes 2{puff} Inhale 2 U nivers 90 1-27 Puffs ity of mcg/actuati 00:00: every 4 [place] on inhaler 00 (four) Medical hours as Branch needed for Wheezing or Shortness of Breath. albuterol 2016-08 Yes 2.5mg Inhale 3 Uni vers 2.5 mg /3 1-27 mL every 4 ity of mL (0.083 00:00: (four) [place] %) 00 hours as Medical nebulizer needed for Bran ch solution Wheezing or Shortness of Breath. tiotropium 2016-08 Yes 18ug Inhale 1 Uni vers 18 mcg 1-27 capsule ity of inhalation 00:00: daily. [place] Medical Branch albuterol 2016-08 Yes 2{puff} Inhale 2 U nivers 90 1-27 Puffs ity of mcg/actuati 00:00: every 4 [place] on inhaler 00 (four) Medical hours as Branch needed for Wheezing or Shortness of Breath. ceFAZolin Yes 1g Univers (ANCEF) 1 g 06 ity of in NaCl 11:00: [place] 0.9% (NS) 00 Medical 50 mL Branch MINI-BAG acetaminoph Yes 650mg Take 2 Uni vers en 7-14 tablets by ity of (TYLENOL) 00:00: mouth [place] 325 mg 00 every 6 Medical tablet (six) Branch hours as needed for Pain (scale 1-3). acetaminoph 2021- No 650mg Take 2 Un gisele en 7-14 07-14 tablets by ity of (TYLENOL) 00:00: 00:00 mouth [place] 325 mg 00 :00 every 6 Medical tablet (six) Branch hours as needed for Pain (scale 1-3). Immunizations Ordered Filled Immunization Date Status Comments [facility] e Immunization Name Name 2018-08-23 Completed University of 00:00:00 [facility] 2018-08-23 Completed University of 00:00:00 [facility] 2018-08-23 Completed University of 00:00:00 [facility] 2018-08-23 Completed University of 00:00:00 [facility] 2018-08-23 Completed University of 00:00:00 [facility] 2018-08-23 Completed University of 00:00:00 [facility] 2018-08-23 Completed University of 00:00:00 [facility] Influenza Virus 2017-06-25 Completed Universit y of Vaccine - Whole 00:00:00 [facility] Pneumococcal 13 2017-06-25 Completed Universit y of Conjugate, PCV13 00:00:00 [facility] (Prevnar 13) [place] Influenza Virus 2017-06-25 Completed Universit y of Vaccine - Whole 00:00:00 [facility] Pneumococcal 13 2017-06-25 Completed Universit y of Conjugate, PCV13 00:00:00 [facility] dical (Prevnar 13) Branch Influenza Virus 2017-06-25 Completed Universit y of Vaccine - Whole 00:00:00 [facility] Pneumococcal 13 2017-06-25 Completed Universit y of Conjugate, PCV13 00:00:00 [facility] dical (Prevnar 13) [place] Influenza Virus 2017-06-25 Completed Universit y of Vaccine - Whole 00:00:00 [facility] Pneumococcal 13 2017-06-25 Completed Universit y of Conjugate, PCV13 00:00:00 [facility] dical (Prevnar 13) Branch Influenza Virus 2017-06-25 Completed Universit y of Vaccine - Whole 00:00:00 [facility] ical Branch Pneumococcal 13 2017-06-25 Completed Universit y of Conjugate, PCV13 00:00:00 [facility] dical (Prevnar 13) Branch Influenza Virus 2017-06-25 Completed Universit y of Vaccine - Whole 00:00:00 [facility] ical Branch Pneumococcal 13 2017-06-25 Completed Universit y of Conjugate, PCV13 00:00:00 [facility]ical (Prevnar 13) Branch Influenza Virus 2017-06-25 Completed Universit y of Vaccine - [facility] 00:00[facility] Pneumococcal 13 2017-06-25 Completed Universit y of Conjugate, PCV13 00:00:00 [facility] dical (Prevnar 13) Branch Vital Signs Vital Name Observation Time Observation Value Comments Source Systolic blood 2022-06-09 13:27:00 180 mm[Hg] [facility] Diastolic blood 2022-06-09 13:27:00 90 mm[Hg] Unive rs[facility] Heart rate 2022-06-09 13:27:00 73 /min [facility] Body height 2022-06-09 13:26:00 157.5 cm [facility] Body weight 2022-06-09 13:26:00 49.896 kg [facility] BMI 2022-06-09 13:26:00 20.12 kg/m2 [facility] Systolic blood 2022-03-13 02:09:00 138 mm[Hg] Univer [facility] Diastolic blood 2022-03-13 02:09:00 89 mm[Hg] Unive [facility] Heart rate 2022-03-13 02:09:00 79 /min [facility] Respiratory rate 2022-03-13 02:09:00 25 /min [facility] Oxygen saturation in 2022-03-13 02:09:00 93 /min [facility] Arterial blood by [facility] Pulse oximetry Branch Body temperature 2022-03-13 01:00:00 36.61 Vee [facility] Body weight 2022-03-12 13:00:00 48 kg Universi ty [facility] BMI 2022-03-12 13:00:00 19.35 kg/m2 Universi ty [facility] Body height 2022-03-11 06:00:00 157.5 cm Universi ty [facility] Systolic blood 2021-12-08 20:47:00 205 mm[Hg] Univer sity of pressure [facility] Diastolic blood 2021-12-08 20:47:00 100 mm[Hg] Unive rsity of pressure [facility] Heart rate 2021-12-08 20:47:00 101 /min Universi ty [facility] Body height 2021-12-08 20:46:00 157.5 cm Universi ty [facility] Body weight 2021-12-08 20:46:00 49.896 kg Universi ty [facility] BMI 2021-12-08 20:46:00 20.12 kg/m2 Universi [facility] Systolic blood 2022-02-19 05:15:00 181 mm[Hg] [facility] pressure Diastolic blood 2022-02-19 05:15:00 88 mm[Hg] [facility] pressure Heart rate 2022-02-19 05:15:00 72 /min [facility] Body temperature 2022-02-19 05:15:00 36.67 Vee [facility] Respiratory rate 2022-02-19 05:15:00 20 /min [facility] Oxygen saturation in 2022-02-19 05:15:00 97 /min [facility] Arterial blood by Pulse oximetry Body height 2022-02-18 23:52:00 157.5 cm [facility] Body weight 2022-02-18 23:52:00 45.36 kg [facility] BMI 2022-02-18 23:52:00 18.29 kg/m2 [facility] Systolic blood 2021-12-24 17:26:00 207 mm[Hg] Method ist [facility] pressure Diastolic blood 2021-12-24 17:26:00 90 mm[Hg] Metho dist [facility] pressure Heart rate 2021-12-24 17:26:00 88 /min Methodis t [facility] Body temperature 2021-12-24 17:26:00 36.44 Vee [facility] Respiratory rate 2021-12-24 17:26:00 22 /min [facility] Body height 2021-12-24 17:26:00 157.5 cm [facility] Body weight 2021-12-24 17:26:00 46.176 kg [facility] BMI 2021-12-24 17:26:00 18.62 kg/m2 [facility] Oxygen saturation in 2021-12-24 17:26:00 97 /min [facility] Arterial blood by Pulse oximetry Procedures Procedure Date / Time Performing Clinician Source Performed EXTERNAL PROVIDER RECORDS 2022-03-23 05:01:00 Doctor Unassigned, [facility] [place] Medical Branch MAGNESIUM 2022-03-12 11:28:00 Jenna [facility] HEPATIC FUNCTION PANEL 2022-03-12 11:28:00 [id number] (ALB,T.PRO,BILI Medical Branch T,BU/BC,ALT,AST,ALK PHOS) BASIC METABOLIC PANEL 2022-03-12 11:28:00 Miley [facility] (NA, K, CL, CO2, GLUCOSE, Medica l Branch BUN, CREATININE, CA) ETHANOL 2022-03-12 11:28:00 Miley [facility] AC PANEL 20 + LACTIC ACID 2022-03-11 11:37:00 Pat Corrales [facility] MAGNESIUM 2022-03-11 10:18:00 Jenna [facility] BASIC METABOLIC PANEL 2022-03-11 10:18:00 Jenna [facility] (NA, K, CL, CO2, GLUCOSE, Jhonny Medica l Branch BUN, CREATININE, CA) CBC WITH DIFF 2022-03-11 10:18:00 Jenna [facility] COVID-19 (ID NOW RAPID 2022-03-11 04:59:00 Radha Yang [facility] TESTING) Medical Branch LAB ONLY COVID 2022-03-11 04:59:00 Radha Yang [facility] INTERPRETATION [facility] CT HEAD WO CONTRAST 2022-03-11 04:38:[address] [facility] CT THORAX WO CONTRAST 2022-03-11 04:38:07 Radha Yang [facility] XR CHEST 1 VW 2022-03-11 04:09:46 Radha Yang [facility] COMP. METABOLIC PANEL 2022-03-11 03:58:00 Radha Yang [facility] ([id number]) Medical Branch ETHANOL 2022-03-11 03:58:00 Celia [facility] URINE DRUG (IMMUNOASSAY) 2022-03-11 03:58:00 Radha Yang [facility] DRUG [facility] SCREEN CBC WITH DIFF 2022-03-11 03:58:00 Celia [facility] URINALYSIS 2022-03-11 03:58:00 Celia [facility] AC PANEL 20 + LACTIC ACID 2022-03-10 00:00:00 Radha Yang [facility] CT SOFT TISSUE NECK W/O 2022-02-19 04:18:00 Dalton Polk [facility] CONTRAST XRAY CHEST 2 VIEWS 2022-02-18 12:07:00 Soila Abdul BMP POC 2022-02-18 11:41:00 Unknown, Provider Dino Barger [facility] CREATININE POC 2022-02-18 11:41:00 Unknown, Provider Dino Barger [facility] CBC/DIFF 2022-02-18 11:36:00 Soila Abdul alth TROPONIN I 2022-02-18 11:36:00 Soila Abdul alth CBC 2022-02-18 11:36:00 Soila Abdul alth 12 LEAD EKG 2022-02-18 11:28:48 Soila Abdul alth US DUPLEX ARTERIAL LOWER 2021-12-24 17:00:00 Jeronimo Lopez [facility] EXTREMITY RIGHT [facility] Plan of Care Planned Activity Planned Date Details Comments Source Future Scheduled 2022-05-30 IMM Influenza Seasonal [facility] Test 00:00:00 (>/= 19 yrs) [code = IMM Influenza Seasonal (>/= 19 yrs)] Future Scheduled 2022-04-29 HEPATITIS B VACCINES Met [facility] Test 05:59:51 (1 of 3 - 3-dose series) [code = HEPATITIS B VACCINES (1 of 3 - 3-dose series)] Future Scheduled 2022-04-29 COVID-19 VACCINE (#1) [facility] Test 05:59:51 [code = COVID-19 VACCINE (#1)] Future Scheduled 2022-04-29 Hepatitis C screening [facility] Test 05:59:51 (procedure) [code = 806204118] Future Scheduled 2022-04-29 Screening for [facility] Test 05:59:51 malignant neoplasm of cervix (procedure) [code = 680115966] Future Scheduled 2022-04-29 BREAST CANCER [facility] Test 05:59:51 SCREENING [code = BREAST CANCER SCREENING] Future Scheduled 2022-04-29 COLONOSCOPY SCREENING [facility] Test 05:59:51 [code = COLONOSCOPY SCREENING] Future Scheduled 2022-04-29 SHINGLES VACCINES (1 Met [facility] Test 05:59:51 of 2) [code = SHINGLES VACCINES (1 of 2)] Future Scheduled 2022-04-29 INFLUENZA VACCINE Method [facility] Test 05:59:51 [code = INFLUENZA VACCINE] Future Scheduled 2009-12-01 Scre[facility] for [facility] 00:00:00 malignant neoplasm of colon (procedure) [code = 684973665] Future Scheduled 1999 Breast Cancer [facility] Test 00:00:00 (Yearly) [code = Breast Cancer Scrn (Yearly)] Future Scheduled 1989-12-01 [facility] Test 00:00:00 malignant neoplasm of cervix (procedure) [code = 667151200] Future Scheduled 1989-12-01 [facility] Test 00:00:00 malignant neoplasm of cervix (procedure) [code = 168751230] Future Scheduled 1965-12-01 Imm Pneumococcal 0-64 [facility] Test 00:00:00 (1 - PCV) [code = Imm Pneumococcal 0-64 (1 - PCV)] Future Scheduled 1960-06-02 COVID-19 Vaccine (#1) [facility] Test 00:00:00 [code = COVID-19 Vaccine (#1)] Encounters Start End Encounter Admission Attending Care Care Encounter Source Date/Time Date/Time Type Type Clinicians Facility Department ID 2021-06-30 Emergency [facility] [id number] Univers 23:14:37 ity [facility] 2022-06-09 2022-06-09 Outpatient Yoko VALDEZ [facility] [id number] Univers 08:29:42 23:59:00 [facility] 2022-06-09 [facility] [id number] Univers 08:30:00 08:45:00 Visit [facility] [id number] it y of [facility] [id number] [place] ARIEL?BLEA [id number] Nv falguni [address] OFFICE [facility] 2022-06-04 2022-06-04 [facility] [id number] Univers 00:00:00 00:00:[address] [facility] [id number] it y of [place] [id number] [place] ARIEL?BLEA [id number] [address] OFFICE [facility] 2022-06-03 2022-06-03 Outpatient Yoko COURTNEY [facility] [id number] Univers 15:15:00 15:15:00 [facility] 2022-03-23 2022-03-23 Orders Doctor AKINS [id number] Univers 00:00:00 00:00:00 Only Unassigned, CINDY [id number] ity of [place] [facility] [id number] [place] [id number] [facility] 009 Branch 2022-03-13 2022-03-13 Transition ELBA Garza [id number] Univers 00:00:00 00:00:00 of Care Dashawn MICHAELY [id number] i ty of [place] 4[place].2.686 [place] [id number] [facility] 403 Branch 2022-03-10 2022-03-12 Inpatient X MARKS [facility] [id number] [facility] 22:46:00 21:27:00 BOWEN SHERIFF of [facility] 2022-03-10 2022-03-12 Hospital Radha Yang 1.2.84 0.114 [id number] [facility] 22:46:00 21:27:00 Encounter Bowen Marks [id number]. 10 ity [facility] [id number] [facility] [id number] [address] 2022-02-20 2022-02-20 Nurse Anna Marie, [facility] [id number] [place] 00:00:00 00:00:00 Triage Lexi Ridley 2022-02-19 2022-02-19 Emergency Lona, [facility] [id number] [place] 01:29:00 07:03:00 [facility] 2022-02-19 2022-02-19 Emergency LONA, [facility] [id number] [place] 01:29:00 07:03:00 [facility] 2022-02-19 2022-02-19 Emergency [facility], [facility] [id number] [place] 04:05:47 04:20:57 [facility] 2022-02-18 2022-02-18 Emergency SAVAGE, [facility] [id number] [place] 11:55:13 12:07:54 [facility] 2021-12-24 2021-12-24 Office John, 1.2.840.1 [id number] Methodi 11:45:00 14:54:58 Visit Jeronimo [address]68.1.[address] [place] [address] 3.430.2.7 [facility] delmy .[id number] l .8 2021-12-24 2021-12-24 [facility] [id number] [place] 00:00:00 00:00:00 JERONIMO 192 Method i 2021-12-24 2021-12-24 [facility] [id number] [place] 00:00:00 00:00:00 JERONIMO [place] [facility] 2021-12-24 2021-12-24 Travel 1.2.840.1 [id number] Methodi 00:00:00 00:00:[address] 3.430.2.7 0.2.7.3.698 Ho spita .[id number] 084.8 l .8 2021-12-16 2021-12-16 Orders Kali, 1.2.840.1 [id number] Methodi 00:00:00 00:00:00 Only Crysandria 30683.1.1 846 s t 3.430.2.7 Hospit a .[id number] l .8 2021-12-10 2021-12-10 Telephone John, 1.2.840.1 [id number] Methodi 00:00:00 00:00:[address] [facility] 3.430.2.7 Hosp delmy .[id number] l .8 2021-12-08 2021-12-08 [facility] [id number] Univers 15:15:00 16:20:40 ADRIANA [facility] 2021-12-08 2021-12-08 Office Christiana Valdez [facility] 1.2.840.114 [id number] Univers 15:15:00 16:20:40 Visit Adriana Gentile [facility] 350.1.13.10 ity etelvina [place] 4.2.7.2.686 [place] ARIEL?BLEA [phone] N[place] falguni [address] MEDICAL OFFICE BUILDING 2021-12-08 2021-12-08 [facility] [id number] Univers 15:15:00 16:20:40 ADRIANA [facility] 2021-12-03 2021-12-03 Emergency X SINGER [facility] ERT [id number] Univers 15:30:00 16:32:00 BARI freire [facility] 2021-12-03 2021-12-03 Emergency Singer [facility] [id number] Univers 15:30:00 16:32:00 Bari [place] 350.1.13.10 i ty of [place] 4.2.7.2.686 [facility] [id number] [address] 2021-12-03 2021-12-03 Emergency X SINGER [facility] ERT [id number] Univers 15:30:00 16:32:00 BARI freire [facility] 2021-12-03 2021-12-03 [facility] [id number] Univers 15:00:00 15:00:00 VERN freire o alvarez [facility] 2021-11-20 2021-11-20 Outpatient [facility] [id number] Univers 14:20:00 14:20:00 VERN rubi [facility] 2021-11-19 2021-11-19 Orders Doctor MABLE 1.2.840.114 [id number] Univers 00:00:00 00:00:00 Only Unassigned, CINDY 350.1.13.10 ity of [place] [facility] 4.2.7.2.686 [facility] [phone] [address] 2021-11-03 2021-11-03 [facility]patient [facility] [id number] Univers 14:45:00 14:45:00 [facility] 2021-11-03 2021-11-03 Outpatient [facility] [id number] Univers 14:45:00 14:45:00 [facility] 2021-10-28 2021-10-28 Emergency [facility] ERT [id number] Univers 16:19:00 18:14:00 ELIN freire [facility] 2021-10-28 2021-10-28 [facility] [id number] Univers 16:19:00 18:14:00 Elin [place] 350.1.13.10 i ty of [facility] 4.2.7.2.686 [facility] [phone] [address] 2021-05-15 2021-05-15 Emergency [facility] [id number] Univers 17:40:00 20:13:00 Bari [place] 350.1.13.10 i ty of [place]7.2.686 [place] [phone] [facility] [address] 2021-05-15 2021-05-15 Nurse Rosa M Snell 1.2.840.114 [id number] Univers 00:00:00 00:00:00 Triage CINDY 350.1.13.10 it y of [facility] 4.2.7.2.686 [place] [phone] [facility] [address] 2021-05-15 2021-05-15 Orders Doctor MABLE 1.2.840.114 [id number] Univers 00:00:00 00:00:00 Only Unassigned, CINDY 350.1.13.10 ity of [place] [facility] 4.2.7.2.686 [place] [phone] [facility] [address] Results Test Description Test Time Test Comments Results Result Comments Source AC Panel 20 + Lactic Acid 2022-03-11 11:56:42 Test Item Value Reference Range Interpretation Comme nts PH (test code = 2) 7.35-7.45 PCO2 (test code = 9097316918) See_Comment L [Automated message] The system which ge nerated this result transmit zaki reference range: 35 - 45 mmHg. The reference range was not used to interpret th is result as normal/abnormal . PO2 (test code = 0594152441) See_Comment [Automated message] The system which ge nerated this result transmit zaki reference range: 80 - 100 mmHg. The reference range was not used to interpret th is result as normal/abnormal . HCO3 (test code = 6726353496) See_Comment L [Automated message] The system which ge nerated this result transmit zaki reference range: 22 - 26 mEq/L. The reference range was not used to interpret th is result as normal/abnormal . BE (test code = 8205027088) See_Comment [Automated message] The system which ge nerated this result transmit zaki reference range: -3.0 - 3 .0 mEq/L. The reference range was not used to interpret th is result as normal/abnormal . THB (test code = 9767202325) 14.5 g/dL 12-16 %O2HB (test code = 3302338661) 96.9 % 94-99 %COHB ART (test code = 0.6 % 0-1.5 6966808996) %METHB ART (test code = 0.1 % 0.4-1.5 L 0257606248) VOL%O2 ART (test code = 19.8 % 15-23 6204699542) NA (test code = 8915654872) 137 mmol/L 135-145 K+ (test code = 2958532365) 3.7 mmol/L 3.5-5 AC CA IONZ (test code = 4.40 mg/dL 4.5-5.3 L 7993296255) GLUCOSE (test code = 83 mg/dL 70-110 8421589139) LACTIC ACID (test code = 1.36 mmol/L 0.5-2.2 3606293493) Lab Interpretation (test code = Abnormal 32554-2) [facility] with [id number] 11:08:27 Test Item Value Reference Range Interpretation Comments WBC (test code = See_Comment [Automated 7532-2) message] The sy stem which generated this result transmitted reference range : 4.30 - 11.10 10*3/?L. The reference range was not used to interpret this result as normal/abnormal . RBC (test code = See_Comment [Automated 979-8) message] The sy stem which generated this result transmitted reference range : 3.93 - 5.25 10*6/?L. The reference range was not used to interpret this result as normal/abnormal . HGB (test code = 13.8 g/dL 11.6-15 718-7) HCT (test code = 39.8 % 35.7-45.2 4544-3) MCV (test code = 97.1 fL 80.6-95.5 H 787-2) MCH (test code = 33.7 pg 25.9-32.8 H 785-6) MCHC (test code = 34.7 g/dL 31.6-35.1 786-4) RDW-SD (test code = 49.9 fL 39-49.9 47523-7) RDW-CV (test code = 13.9 % 12-15.5 788-0) PLT (test code = See_Comment [Automated 307-3) message] The sy stem which generated this result transmitted reference range : 166 - 358 10*3/ ?L. The reference r joan was not used to interpret this result as normal/abnormal . MPV (test code = 9.3 fL 9.5-12.9 L 17242-5) IPF % (test code = 2.0 % 1.3-7.7 Platelet count 9413802264) measured by fluorescence method. NRBC/100 WBC (test See_Comment [Automat ed code = 7027811344) message] The system which generated this result transmitted reference range : 0.0 - 10.0 /100 WBCs. The refer ence range was not u sed to interpret th is result as normal/abnormal . NRBC x10^3 (test code See_Comment [Auto mated = 5789345156) message] The s ystem which generated this result transmitted reference range : 10*3/?L. The reference range was not used to interpret this result as normal/abnormal . GRAN MAT (NEUT) % 65.8 % (test code = 770-8) IMM GRAN % (test code 0.30 % = 2727435145) LYMPH % (test code = 25.2 % 736-9) MONO % (test code = 6.1 % 5905-5) EOS % (test code = 2.3 % 713-8) BASO % (test code = 0.3 % 706-2) GRAN MAT x10^3(ANC) 6.25 10*3/uL 1.88-7.09 (test code = 3270469926) IMM GRAN x10^3 (test 0.03 10*3/uL 0-0.06 code = 8677394311) LYMPH x10^3 (test code 2.40 10*3/uL 1.32-3.29 = 731-0) MONO x10^3 (test code 0.58 10*3/uL 0.33-0.92 = 742-7) EOS x10^3 (test code = 0.22 10*3/uL 0.03-0.39 711-2) BASO x10^3 (test code 0.03 10*3/uL 0.01-0.07 = 704-7) Lab Interpretation Abnormal (test code = 12148-3) [facility] Metabolic Panel (NA, K, CL, CO2, Glucose, BUN, Creatinine, CA)2022-03-11 11:03:45 Test Item Value Reference Range Interpretation Comments NA (test code = 137 mmol/L 135-145 2531367651) K (test code = 3.9 mmol/L 3.5-5 8293540851) CL (test code = 113 mmol/L 98-108 H 1554663160) CO2 TOTAL (test code = 20 mmol/L 23-31 L 6712396307) AGAP (test code = 2-16 1331280549) BUN (test code = 10 mg/dL 7-23 0100164816) GLUCOSE (test code = 92 mg/dL 70-110 2715352413) CREATININE (test code = 0.63 mg/dL 0.5-1.04 2762004756) CALCIUM (test code = 8.0 mg/dL 8.6-10.6 L 6352618216) eGFR (test code = mL/min/1.73m2 7813846734) LAZ (test code = LAZ) Association of Glomerular Filtration Rate (GFR) and Staging of Kidney Disease* + --+ --+ ------+| GFR (mL/min/1.73 m2) ?| With Kidney Damage ?| ?Without Kidney Damage+ --------+ --------+ +| ?>90 ?| ?Stage one ?| ? Normal ?+ ---+ ---+ -------+| ?60-89 ?| ?Stage two ?| ? Decreased GFR ? + --+ --+ ------+| ?30-59 ?| ?Stage three ?| ? Stage three ? + --+ --+ ------+| ?15-29 ?| ?Stage four ? | ? Stage four ?+ ---+ ---+ -------+| ?<15 (or dialysis) ? ?| ?Stage five ? | ? Stage five ?+ ---+ ---+ -------+ *Each stage assumes the associated GFR level has been in effect for at least three months. ?Stages 1 to 5, with or without kidney disease, indicate chronic kidney disease. Notes: Determination of stages one and two (with eGFR >59mL/min/1.73 m2) requires estimation of kidney damage for at least three months as defined by structural or functional abnormalities of the kidney, manifested by either:Pathological abnormalities or Markers of kidney damage (including abnormalities in the composition of the blood or urine or abnormalities in imaging tests). Lab Interpretation Abnormal (test code = 14980-2) [facility] [id number] 11:03:45 Test Item Value Reference Range Interpretation Comments MAGNESIUM (test code = 2711635920) 1.9 mg/dL 1.7-2.4 Lab Interpretation (test code = Normal 00049-3) [facility]22-[facility] 04:26:25 Test Item Value Reference Range Interpretation Comments ALCOHOL (test code = 133 mg/dL 5696240418) LAZ (test code = Toxic Greater than or LAZ) equal to 80 mg/dL. NOTE: Whole blood values are approximately 10% to 15% lower than serum and plasma. [facility] (99684)2022-03-11 04:26:24 Test Item Value Reference Range Interpretation Comments NA (test code = 141 mmol/L 135-145 3825208078) K (test code = 4.0 mmol/L 3.5-5 5112778603) CL (test code = 109 mmol/L 98-108 H 1493289581) CO2 TOTAL (test code = 20 mmol/L 23-31 L 9726495515) AGAP (test code = 2-16 5331886059) BUN (test code = 10 mg/dL 7-23 4404872403) GLUCOSE (test code = 83 mg/dL 70-110 9348627695) CREATININE (test code = 0.69 mg/dL 0.5-1.04 2185609595) TOTAL BILI (test code = 0.4 mg/dL 0.1-1.5 6793261388) CALCIUM (test code = 8.2 mg/dL 8.6-10.6 L 4428570018) T PROTEIN (test code = 6.6 g/dL 6.3-8.2 3772706719) ALBUMIN (test code = 4.1 g/dL 3.5-5 6219398494) ALK PHOS (test code = 93 U/L 34-122 7221714131) ALTv (test code = 13 U/L 5-35 1742-6) AST(SGOT) (test code = 27 U/L 13-40 4397339573) eGFR (test code = mL/min/1.73m2 6914230401) LAZ (test code = LAZ) Association of Glomerular Filtration Rate (GFR) and Staging of Kidney Disease* + --+ --+ ------+| GFR (mL/min/1.73 m2) ?| With Kidney Damage ?| ?Without Kidney Damage+ --------+ --------+ +| ?>90 ?| ?Stage one ?| ? Normal ?+ ---+ ---+ -------+| ?60-89 ?| ?Stage two ?| ? Decreased GFR ? + --+ --+ ------+| ?30-59 ?| ?Stage three ?| ? Stage three ? + --+ --+ ------+| ?15-29 ?| ?Stage four ? | ? Stage four ?+ ---+ ---+ -------+| ?<15 (or dialysis) ? ?| ?Stage five ? | ? Stage five ?+ ---+ ---+ -------+ *Each stage assumes the associated GFR level has been in effect for at least three months. ?Stages 1 to 5, with or without kidney disease, indicate chronic kidney disease. Notes: Determination of stages one and two (with eGFR >59mL/min/1.73 m2) requires estimation of kidney damage for at least three months as defined by structural or functional abnormalities of the kidney, manifested by either:Pathological abnormalities or Markers of kidney damage (including abnormalities in the composition of the blood or urine or abnormalities in imaging tests). Lab Interpretation Abnormal (test code = 38892-3) [facility] WITH [id number] 04:18:21 Test Item Value Reference Range Interpretation Comments WBC (test code = See_Comment [Automated 3349-2) message] The sy stem which generated this result transmitted reference range : 4.30 - 11.10 10*3/?L. The reference range was not used to interpret this result as normal/abnormal . RBC (test code = See_Comment [Automated 878-0) message] The sy stem which generated this result transmitted reference range : 3.93 - 5.25 10*6/?L. The reference range was not used to interpret this result as normal/abnormal . HGB (test code = 15.1 g/dL 11.6-15 H 718-7) HCT (test code = 43.6 % 35.7-45.2 4544-3) MCV (test code = 96.7 fL 80.6-95.5 H 787-2) MCH (test code = 33.5 pg 25.9-32.8 H 785-6) MCHC (test code = 34.6 g/dL 31.6-35.1 786-4) RDW-SD (test code = 49.5 fL 39-49.9 65431-9) RDW-CV (test code = 13.7 % 12-15.5 788-0) PLT (test code = See_Comment [Automated 777-3) message] The sy stem which generated this result transmitted reference range : 166 - 358 10*3/ ?L. The reference r joan was not used to interpret this result as normal/abnormal . MPV (test code = 8.5 fL 9.5-12.9 L 42511-3) NRBC/100 WBC (test See_Comment [Automat ed code = 8989361701) message] The system which generated this result transmitted reference range : 0.0 - 10.0 /100 WBCs. The refer ence range was not u sed to interpret th is result as normal/abnormal . NRBC x10^3 (test code See_Comment [Auto mated = 4801211185) message] The s ystem which generated this result transmitted reference range : 10*3/?L. The reference range was not used to interpret this result as normal/abnormal . GRAN MAT (NEUT) % 54.4 % (test code = 770-8) IMM GRAN % (test code 0.70 % = 9608727495) LYMPH % (test code = 35.4 % 736-9) MONO % (test code = 5.0 % 5905-5) EOS % (test code = 4.1 % 713-8) BASO % (test code = 0.4 % 706-2) GRAN MAT x10^3(ANC) 4.17 10*3/uL 1.88-7.09 (test code = 0801168815) IMM GRAN x10^3 (test 0.05 10*3/uL 0-0.06 code = 7456013272) LYMPH x10^3 (test code 2.71 10*3/uL 1.32-3.29 = 731-0) MONO x10^3 (test code 0.38 10*3/uL 0.33-0.92 = 742-7) EOS x10^3 (test code = 0.31 10*3/uL 0.03-0.39 711-2) BASO x10^3 (test code 0.03 10*3/uL 0.01-0.07 = 704-7) Lab Interpretation Abnormal (test code = 33621-7) [facility] CREATININE POC docked [id number] 11:44:33 Test Item Value Reference Range Interpretation Comments Creatinine POC (test 0.8 mg/dL 0.6-1.3 Physici an Notified code = 66739465) eGFR If non- Am 79 See_Comment L [Aut omated message] (test code = 96247790) The s ystem which generated this result transmit zaki reference range : >=90 mL/min/1.7 3 m2. The reference r joan was not used to interpret this result as normal/abnormal . eGFR If Am (test 91 See_Comment [A utomated message] code = 93525692) The system which generated this result transmit zaki reference range : >=90 mL/min/1.7 3 m2. The reference r joan was not used to interpret this result as normal/abnormal . Lab Interpretation (test Abnormal code = 13869-0) [facility] BMP POC docked [id number] 11:44:18 Test Item Value Reference Range Interpretation Comments Sodium POC (test code = 142 mmol/L 136-145 50648096) Potassium POC (test code 4.0 mmol/L 3.5-5.1 = 99994800) Chloride POC (test code 106 mmol/L 98-107 = 25626310) TCO2 POC (test code = 28 mmol/L 21-32 Physic jasper Notified 53604755) Urea Nitrogen POC (test 12 mg/dL 7-18 code = 06547074) Glucose POC (test code = 112 mg/dL 74-106 H 72124738) Hemoglobin POC (test 16.0 g/dL 12-16 code = 39165113) Hematocrit POC (test 47.0 % 37.0-47.0 code = 55598411) Lab Interpretation (test Abnormal code = 93444-2) [facility]12 Lead [id number] 11:28:4812 LEAD EKG FOR [facility] Test Date: 8647-03-37Seg Name: DASHAWN WILKES Department: 5520Patient ID: [id number] Room: Gender: F Hand Iii Cutter: [id number]: 1960 Requested By: SOILA Mancilla Number: [id number] Reading MD: Malina Sutherland M.D. MeasurementsIntervals [place] Rate: 104P: 77PR: 116 QRS: 77QRSD: 86 T: 80QT: 325 QTc: 385 Interpretive StatementsSINUS TACHYCARDIA WITH SHORT ID INTERVALABNORMAL RHYTHM ECGElectronically Signed On 02-18-2022 12:34:28 CDT by Malina Sutherland M.D.[facility]"
--- NOTE | 2022-06-22 22:49 | RAD REPORT ---
EXAM DESCRIPTION: Hemalathat Single View06/22/2022 10:40 pm CLINICAL HISTORY: cough COMPARISON: February 2022 FINDINGS: The lungs appear clear of acute infiltrate. The heart is normal size IMPRESSION: No acute abnormalities displayed
[2022-06-22] MEDS ORDERED: LEVALBUTEROL 1.25 MG/3 ML NEB ONE (22:52)
[2022-06-22] MEDS ORDERED: METHYLPREDNISOLONE 125 MG INJ ONE (22:52)
[2022-06-22] MEDS ORDERED: ASPIRIN 81 MG CHEWABLE TABLET ONE (22:52)
[2022-06-22] MEDS ORDERED: NA CHLORIDE 0.9% 1,000 ML ONE (22:53)
[2022-06-22] MEDS ORDERED: FAMOTIDINE 20 MG/2 ML VIAL IV ONE (22:53)
[2022-06-22 23:05] LABS: Absolute Lymphocytes (CBC) 1.6 K/uL (0.7-4.9); Hematocrit 45.3 % (36.0-45.0); Lymphocytes % 10.5 % (15.3-44.8); MCV 94.2 fL (80-100); MPV 6.7 fL (7.6-11.3); RBC Red Blood Cell Count 4.81 M/uL (3.86-4.86)
[2022-06-22 23:17] LABS: Albumin 3.8 g/dL (3.4-5.0); Bilirubin Direct 0.1 mg/dL (0-0.2); Bilirubin Total 0.4 mg/dL (0.2-1.0); Magnesium 2.2 mg/dL (1.8-2.4); Potassium 3.6 mmol/L (3.5-5.1); Protein, Total 7.4 g/dL (6.4-8.2); Troponin High Sensitivity 5.1 pg/mL (<58.9)
[2022-06-22] MEDS ORDERED: IPRATROPIUM BROM 0.5MG/2.5ML ONE (23:20)
[2022-06-22 23:33] LABS: Protime INR 0.77
--- NOTE | 2022-06-23 00:03 | ER ---
Nurse's Notes [facility] Name: Alessia Razo Age: 61 yrs Sex: Female : 1960 Arrival Date: 06/22/2022 Time: 21:57 Bed 16 Private MD: Diagnosis: Chest pain, unspecified;Abdominal tenderness;Elevated white blood cell count;Alcohol abuse with intoxication;Tobacco abuse counseling;Tobacco use;COPD/ Chronic obstructive pulmonary disease, unspecified Presentation: 06/22 21:57 Chief complaint: Patient states: "I went to [place] earlier today and on my way back I vc1 started cramping in my upper stomach. They a little while ago the pain moved to my chest and I started vomiting." EMS states: We were called for nausea and vomiting with chest pain. When we arrived pts bp was 190/101 we gave nitro and zofran sublinqual and bp decreased to 158/93. pt states the nausea improved and she hasn't vomiting since our arrival. EKG showed NSR. Coronavirus screen: Vaccine status: Patient reports being unvaccinated. At this time, the client does not indicate any symptoms associated with coronavirus-19. Ebola Screen: No symptoms or risks identified at this time. Initial Sepsis Screen: Does the patient meet any 2 criteria? No. Patient's initial sepsis screen is negative. Does the patient have a suspected source of infection? No. Patient's initial sepsis screen is negative. Risk Assessment: Do you want to hurt yourself or someone else? Patient reports no desire to harm self or others. Onset of symptoms was June 22, 2022. 21:57 Method Of Arrival: EMS: [facility] vc1 21:57 Acuity: CAREY 3 vc1 Triage Assessment: 22:03 General: Appears in no apparent distress. uncomfortable, slender, Behavior is vc1 cooperative, anxious. Pain: Complains of pain in xiphoid area Pain does not radiate. Pain currently is 3 out of 10 on a pain scale. at worst was 8 out of 10 on a pain scale. Quality of pain is described as sharp, Alleviated by medications. EENT: No deficits noted. Neuro: Level of Consciousness is awake, alert, obeys commands, Oriented to person, place, time, situation. Cardiovascular: Reports chest pain, nausea, vomiting, Chest pain is described as severe, quality is sharp, is located in epigastric area began suddenly. Respiratory: Airway is patent Respiratory effort is even, unlabored, Respiratory pattern is regular, symmetrical. GI: Reports epigastric pain, nausea, vomiting. : No deficits noted. Derm: No deficits noted. Musculoskeletal: No signs and/or symptoms reported regarding the musculoskeletal system. Amputation of left leg. Historical: - Allergies: 22: Codeine; vc1 - Home Meds: 22:01 Hydralazine Oral [Active]; carvedilol oral [Active]; Xanax Oral [Active]; atorvastatin vc1 oral [Active]; - PMHx: 22: Hypercholesterolemia; Hypertensive disorder; Anxiety; vc1 - PSHx: 22: Left AKA; Hysterectomy; Cholecystectomy; vc1 22:03 Left eye removed; vc1 - Immunization history:: Client reports having NOT received the Covid vaccine. - Social history:: Smoking status: Patient/guardian denies using tobacco, Stopped _ months ago 0.75. - Family history:: not pertinent. Screenin:07 Abuse screen: Denies threats or abuse. Nutritional screening: No deficits noted. vc1 Tuberculosis screening: No symptoms or risk factors identified. Fall Risk None identified. Assessment: 23:00 Reassessment: No changes from previously documented assessment. Patient and/or family vc1 updated on plan of care and expected duration. Pain level reassessed. Patient is alert, oriented x 3, equal unlabored respirations, skin warm/dry/pink. 06/23 00:00 Reassessment: No changes from previously documented assessment. vc1 01:00 Reassessment: No changes from previously documented assessment. Patient and/or family vc1 updated on plan of care and expected duration. Pain level reassessed. Patient states symptoms have improved. 01:50 Reassessment: No changes from previously documented assessment. Patient and/or family vc1 updated on plan of care and expected duration. Pain level reassessed. Patient states feeling better. Patient states symptoms have improved. Vital Signs: 06/22 21:57 BP 142 / 83; Pulse 79; Resp 14; Temp 97.8; Pulse Ox 94% on R/A; Weight 47.63 kg; Height vc1 5 ft. 2 in. (157.48 cm); Pain /10; 23:00 BP 142 / 85; Pulse 72; Resp 15; Pulse Ox 95% on R/A; 1 06/23 00:00 BP 142 / 79; Pulse 88; Resp 17; Pulse Ox 93% on R/A; vc1 01:00 BP 154 / 75; Pulse 86; Resp 16; Pulse Ox 93% on R/A; 1 06/22 21:57 Body Mass Index 19.20 (47.63 kg, 157.48 cm) vc1 ED Course: 06/22 21:57 Patient arrived in ED. vc1 21:58 Av Arevalo MD is Attending Physician. [facility] 22:01 Triage completed. vc1 22:07 Arm band placed on left wrist. vc1 22:07 Patient has correct armband on for positive identification. Placed in gown. Bed in low vc1 position. Call light in reach. Side rails up X2. Client placed on continuous cardiac and pulse oximetry monitoring. NIBP monitoring applied. 22:43 XRAY Chest (1 view) In Process Unspecified. EDMS 23:04 Erica Morris RN is Primary Nurse. vc1 23:05 SARS-COV-2 RT PCR (Document "Date of Onset" if Symptomatic) Sent. vc1 23:05 Flu Sent. vc1 23:51 CT Head C Spine In Process Unspecified. EDMS 23:54 Sourav Fitzpatrick MD is Hospitalizing Provider. [facility] 06/23 00:14 CT Aorta for Dissection In Process Unspecified. EDMS 02:40 No provider procedures requiring assistance completed. Patient admitted, IV remains in vc1 place. Administered Medications: 06/22 23:05 Drug: Aspirin Chewable Tablet 162 mg Route: PO; [facility] 06/23 01:51 Follow up: Response: No adverse reaction; Marked relief of symptoms [facility] 06/22 23:05 Drug: Pepcid (famotidine) 20 mg Route: IVP; Site: left antecubital; [facility] 06/23 01:51 Follow up: Response: No adverse reaction; Marked relief of symptoms [facility] 06/22 23:06 Drug: NS 0.9% 1000 ml Route: IV; Rate: 125 ml/hr; Site: left antecubital; [facility] 06/23 01:51 Follow up: IV Status: Completed infusion; IV Intake: 425ml [facility] 06/22 23:06 Drug: SOLU-Medrol (methylPrednisoLONE) 125 mg Route: IVP; Site: left antecubital; vc1 06/23 01:51 Follow up: Response: No adverse reaction; Marked relief of symptoms vc1 06/22 23:06 Drug: Xopenex (levalbuterol) 2.5 mg Route: Inhalation; vc1 23:06 Drug: AtroVENT (ipratropium) Aerosol 0.5 mg Route: Inhalation; vc1 06/23 01:57 Drug: NS 0.9% 1000 ml Route: IV; Rate: 1000 ml; Site: right antecubital; ll3 02:30 Follow up: IV Status: Infusion continued upon admission vc1 Medication: 06/22 22:07 VIS not applicable for this client. vc1 Intake: 06/23 01:51 IV: 425ml; Total: 425ml. 1 Outcome: 00:02 Decision to Hospitalize by Provider. [place] 02:40 Admitted to Med/surg accompanied by tech, via stretcher, room 428, Report called to cesia Medellin RN 02:40 Condition: good 02:41 Patient left the ED. [facility] Signatures: Dispatcher [employer] Av Ho MD MD cha Loubet, Lynsea RN RN ll3 Erica Morris RN RN vc1
--- NOTE | 2022-06-23 00:04 | EDPHYS ---
Physician Documentation [facility] Name: Alessia Razo Age: 61 yrs Sex: Female : 1960 Arrival Date: 06/22/2022 Time: 21:57 Bed 16 Private MD: ED Physician Av Arevalo HPI: 06/22 22:32 This 61 yrs old Female presents to ER via EMS with complaints of abd pain and [place] cp. 22:32 The patient or guardian reports chest pain that is located primarily in the substernal [place] area, epigastric area. Onset: just prior to arrival. The patient presents with abdominal pain in the epigastric area. Onset: The symptoms/episode began/occurred just prior to arrival. The pain does not radiate. The symptoms do not radiate. Associated signs and symptoms: none. The symptoms are described as crampy. Modifying factors: The symptoms are alleviated by nothing. Associated signs and symptoms: Pertinent positives: abdominal pain, nausea, shortness of breath, vomiting. The chest pain is described as a pressure. Historical: - Allergies: 22:01 Codeine; vc1 - Home Meds: 22:01 Hydralazine Oral [Active]; carvedilol oral [Active]; Xanax Oral [Active]; atorvastatin vc1 oral [Active]; - PMHx: 22:01 Hypercholesterolemia; Hypertensive disorder; Anxiety; vc1 - PSHx: 22:01 Left AKA; Hysterectomy; Cholecystectomy; vc1 22:03 Left eye removed; vc1 - Immunization history:: Client reports having NOT received the Covid vaccine. - Social history:: Smoking status: Patient/guardian denies using tobacco, Stopped _ months ago 0.75. - Family history:: not pertinent. ROS: 22:32 Constitutional: Negative for fever, chills, and weight loss, Eyes: Negative for injury, [place] pain, redness, and discharge, ENT: Negative for injury, pain, and discharge, Neck: Negative for injury, pain, and swelling, Back: Negative for injury and pain, : Negative for injury, bleeding, discharge, and swelling, MS/Extremity: Negative for injury and deformity, Skin: Negative for injury, rash, and discoloration, Neuro: Negative for headache, weakness, numbness, tingling, and seizure, Psych: Negative for depression, anxiety, suicide ideation, homicidal ideation, and hallucinations, Allergy/Immunology: Negative for hives, rash, and allergies, Endocrine: Negative for neck swelling, polydipsia, polyuria, polyphagia, and marked weight changes, Hematologic/Lymphatic: Negative for swollen nodes, abnormal bleeding, and unusual bruising. 22:32 Cardiovascular: Positive for chest pain. 22:32 Respiratory: Positive for shortness of breath. 22:32 Abdomen/GI: Positive for nausea and vomiting, of the right upper quadrant. Exam: 22:32 Constitutional: This is a well developed, well nourished patient who is awake, alert, [place] and in no acute distress. Head/Face: Normocephalic, atraumatic. Eyes: Pupils equal round and reactive to light, extra-ocular motions intact. Lids and lashes normal. Conjunctiva and sclera are non-icteric and not injected. Cornea within normal limits. Periorbital areas with no swelling, redness, or edema. ENT: Nares patent. No nasal discharge, no septal abnormalities noted. Tympanic membranes are normal and external auditory canals are clear. Oropharynx with no redness, swelling, or masses, exudates, or evidence of obstruction, uvula midline. Mucous membranes moist. Neck: Trachea midline, no thyromegaly or masses palpated, and no cervical lymphadenopathy. Supple, full range of motion without nuchal rigidity, or vertebral point tenderness. No Meningismus. Chest/axilla: Normal chest wall appearance and motion. Nontender with no deformity. No lesions are appreciated. Cardiovascular: Regular rate and rhythm with a normal S1 and S2. No gallops, murmurs, or rubs. Normal PMI, no JVD. No pulse deficits. Respiratory: Lungs have equal breath sounds bilaterally, clear to auscultation and percussion. No rales, rhonchi or wheezes noted. No increased work of breathing, no retractions or nasal flaring. Abdomen/GI: Soft, non-tender, with normal bowel sounds. No distension or tympany. No guarding or rebound. No evidence of tenderness throughout. Back: No spinal tenderness. No costovertebral tenderness. Full range of motion. Female : Normal external genitalia. Skin: Warm, dry with normal turgor. Normal color with no rashes, no lesions, and no evidence of cellulitis. MS/ Extremity: Pulses equal, no cyanosis. Neurovascular intact. Full, normal range of motion. Neuro: Awake and alert, GCS 15, oriented to person, place, time, and situation. Cranial nerves II-XII grossly intact. Motor strength 5/5 in all extremities. Sensory grossly intact. Cerebellar exam normal. Normal gait. Psych: Awake, alert, with orientation to person, place and time. Behavior, mood, and affect are within normal limits. 22:32 ECG was reviewed by the Attending Physician. Vital Signs: 21:57 BP 142 / 83; Pulse 79; Resp 14; Temp 97.8; Pulse Ox 94% on R/A; Weight 47.63 kg; Height vc1 5 ft. 2 in. (157.48 cm); Pain 3/10; 23:00 BP 142 / 85; Pulse 72; Resp 15; Pulse Ox 95% on R/A; vc1 06/23 00:00 BP 142 / 79; Pulse 88; Resp 17; Pulse Ox 93% on R/A; vc1 01:00 BP 154 / 75; Pulse 86; Resp 16; Pulse Ox 93% on R/A; vc1 06/22 21:57 Body Mass Index 19.20 (47.63 kg, 157.48 cm) vc1 MDM: 06/22 21:58 Patient medically screened. [place] 22:36 Differential diagnosis: abnormal EKG, acute myocardial infarction, acute pericarditis, [place] anxiety, chest wall pain, costochondritis, herpes zoster, hiatal hernia, pancreatitis, pericarditis, pneumonia, pneumothorax, pulmonary embolus, stable angina, unstable angina, gastritis, GI Bleed, Hepatitis, non-specific abd pain, pancreatitis, Peptic Ulcer Disease, Peritonitis, Pyelonephritis, urinary tract infection. HEART Score: History: Slightly Suspicious (0), ECG: Normal (0), Age: > 45 and < 65 years (1), Risk Factors: > or = 3 Risk factors for atherosclerotic disease (2), [Hypercholesterolemia] [Hypertension] [Active Smoker] [+ Family HX] Troponin: < or = 1 x Normal Limit (0). The patient was given aspirin in the Emergency Department. The patient's deep vein thrombosis risk score was calculated as follows: Total Score: 0. This patient was found to be at low risk for a deep vein thrombosis by using the Well's assessment criteria. The patient's pulmonary embolism risk score was calculated as follows: Total Score: 0-2 points. This patient was found to be at low risk for a pulmonary embolism by using the Well's assessment criteria. FACUNDO Risk Score: 1 - Three or more CAD risk factors, 1- Known CAD, TOTAL SCORE = 2. Data reviewed: vital signs, nurses notes, EMS record, lab test result(s), EKG, radiologic studies, CT scan, plain films. Data interpreted: monitor technician: rate is 79 beats/min, rhythm is regular, Pulse oximetry: on room air is 94 %. Test interpretation: by ED physician or midlevel provider: ECG, plain radiologic studies. Counseling: I had a detailed discussion with the patient and/or guardian regarding: the historical points, exam findings, and any diagnostic results supporting the discharge/admit diagnosis, the presence of at least one elevated blood pressure reading (>120/80) during this emergency department visit, lab results, radiology results, the need for further work-up and treatment in the hospital. 06/22 22: Order name: Basic Metabolic Panel; Complete Time: 23:34 [facility] 06/22 22: Order name: CBC with Diff; Complete Time: 23:12 [facility] 06/22 22:02 Order name: LFT's; Complete Time: 23:34 [facility] 06/22 22:02 Order name: Magnesium; Complete Time: 23:34 [place] 06/22 22:02 Order name: NT PRO-BNP; Complete Time: 23:34 06/22 22:02 Order name: PT-INR; Complete Time: 23:51 [place] 06/22 22:02 Order name: Troponin HS; Complete Time: 23:34 [place] 06/22 22:02 Order name: Acetaminophen; Complete Time: 23:34 [facility] 06/22 22:02 Order name: ETOH Level; Complete Time: 23:34 [facility] 06/22 22:02 Order name: Salicylate; Complete Time: 23:12 [facility] 06/22 22:02 Order name: Urine Drug Screen [facility] 06/22 22: Order name: Flu; Complete Time: 23:51 [facility] 06/22 22:02 Order name: SARS-COV-2 RT PCR (Document "Date of Onset" if Symptomatic); Complete Time: [facility] 23:51 06/22 22: Order name: XRAY Chest (1 view); Complete Time: 23:12 [facility] 06/22 22:02 Order name: EKG; Complete Time: 22:04 06/22 22:02 Order name: Cardiac monitoring; Complete Time: 22:45 [facility] 06/22 22:02 Order name: EKG - Nurse/Tech; Complete Time: 22:29 [facility] 06/22 22:02 Order name: IV Saline Lock; Complete Time: 22:45 [facility] 06/22 22:02 Order name: Labs collected and sent; Complete Time: 22:45 [facility] 06/22 22:27 Order name: CT Aorta for Dissection [facility] 06/22 23:04 Order name: Lipase; Complete Time: 23:34 EDMS 06/22 23:22 Order name: CT Head C Spine [facility] 06/22 22:02 Order name: O2 Per Protocol; Complete Time: 22:45 [facility] 06/22 22:02 Order name: O2 Sat Monitoring; Complete Time: 22:45 [facility] EC:32 Rate is 76 beats/min. Rhythm is regular. QRS [place] is Normal. [place] interval is normal. QRS [place] interval is normal. QT interval is normal. No Q waves. T waves are Normal. No ST changes noted. Clinical impression: NSR w/ Non-specific ST/T Changes and No evidence of ischemia. Interpreted by me. Reviewed by me. Administered Medications: 23:05 Drug: Aspirin Chewable Tablet 162 mg Route: PO; 06/23 01:51 Follow up: Response: No adverse reaction; Marked relief of symptoms 06/22 23:05 Drug: Pepcid (famotidine) 20 mg Route: IVP; Site: left antecubital; [facility] 06/23 01:51 Follow up: Response: No adverse reaction; Marked relief of symptoms 06/22 23:06 Drug: NS 0.9% 1000 ml Route: IV; Rate: 125 ml/hr; Site: left antecubital; 06/23 01:51 Follow up: IV Status: Completed infusion; IV Intake: 425ml 06/22 23:06 Drug: SOLU-Medrol (methylPrednisoLONE) 125 mg Route: IVP; Site: left antecubital; 06/23 01:51 Follow up: Response: No adverse reaction; Marked relief of symptoms 06/22 23:06 Drug: Xopenex (levalbuterol) 2.5 mg Route: Inhalation; 1 23:06 Drug: AtroVENT (ipratropium) Aerosol 0.5 mg Route: Inhalation; vc1 06/23 01:57 Drug: NS 0.9% 1000 ml Route: IV; Rate: 1000 ml; Site: right antecubital; ll3 02:30 Follow up: IV Status: Infusion continued upon admission vc1 Disposition Summary: 06/23/22 00:02 Hospitalization Ordered Hospitalization Status: Observation [place] Provider: Sourav Fitzpatrick cha Location: Telemetry/MedSurg (observation) [place] Condition: Stable [place] Problem: new [place] Symptoms: have improved [place] Bed/Room Type: Standard [place] Room Assignment: 428(06/23/22 01:20) mw Diagnosis - Chest pain, unspecified [place] - Abdominal tenderness [place] - Elevated white blood cell count [place] - Alcohol abuse with intoxication t[place] - Tobacco abuse counseling [place] - Tobacco use [place] - COPD/ Chronic obstructive pulmonary disease, unspecified [place] Forms: - Medication Reconciliation Form [place] - SBAR form [place] Signatures: Dispatcher [employer] EDMS Adina Olsen RN RN Av Soni MD MD cha Attema, Lee, FBI SHARPSHOOTER-C FBI SHARPSHOOTER-Cla1 Aleida Vásquez RN RN ll3 Erica Morris RN RN vc1 Corrections: (The following items were deleted from the chart) 06/22 23:03 22:28 LIPASE+C.LAB.BRZ ordered. EDAR EDMS 23:06 22:02 Suicide Screening ([place]) ordered. [facility] 06/23 01:20 00:02 [place] cooper
[2022-06-23] MEDS ORDERED: NA CHLORIDE 0.9% 1,000 ML ONE (01:56)
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
[2022-06-23 02:50] VITALS: O2SAT 93
[2022-06-23] MEDS ORDERED: ONDANSETRON 4 MG/2 ML VIAL IV PRN (03:03)
[2022-06-23 03:20] LABS: Barbiturates NEGATIVE (NEGATIVE); Benzodiazepines NEGATIVE (NEGATIVE); Cocaine NEGATIVE (NEGATIVE); METHAMPHETAM NEGATIVE (NEGATIVE); Methadone NEGATIVE (NEGATIVE); Opiates NEGATIVE (NEGATIVE); Phencyclidine NEGATIVE (NEGATIVE); THC Cannibis NEGATIVE (NEGATIVE)
[2022-06-23 03:33] VITALS: BMI 19.2
[2022-06-23] MEDS ORDERED: ACETAMINOPHEN 500 MG TAB PO ONE (03:53)
[2022-06-23] MEDS ORDERED: HYDRALAZINE HCL 20 MG/ML VIAL IV ONE (03:54)
[2022-06-23 04:37] LABS: Absolute Lymphocytes (CBC) 0.3 K/uL (0.7-4.9); Hematocrit 43.9 % (36.0-45.0); Lymphocytes % 3.4 % (15.3-44.8); MCV 95.1 fL (80-100); MPV 6.7 fL (7.6-11.3); RBC Red Blood Cell Count 4.62 M/uL (3.86-4.86)
[2022-06-23 05:00] LABS: Potassium 3.8 mmol/L (3.5-5.1); Troponin High Sensitivity 5.7 pg/mL (<58.9)
[2022-06-23 05:10] LABS: Blood Morphology Comment NOT SEEN (NOT SEEN); Platelet Estimate ADEQ
[2022-06-23] MEDS ORDERED: PANTOPRAZOLE 40MG TABLET PO SCH (06:30)
[2022-06-23 06:40] VITALS: BP 141/80; TEMP 98.6
[2022-06-23] MEDS ORDERED: INFLUENZA VACCINE (for 6+ mo) 0.5 ML DOSE IMVAC ONE (08:00)
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
[2022-06-23] MEDS ORDERED: ASPIRIN EC 81 MG TAB PO SCH (09:00)
[2022-06-23] MEDS ORDERED: POTASSIUM CL SA 10 MEQ TAB PO ONE (09:00)
[2022-06-23] MEDS ORDERED: ENOXAPARIN 40 MG/0.4 ML SQ SCH (09:00)
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
--- NOTE | 2022-06-23 10:04 | RAD REPORT ---
EXAM DESCRIPTION: CT - Angio Aorta For Dissection - 06/22/2022 11:59 pm CLINICAL HISTORY: 61 years, Female, na COMPARISON: None. TECHNIQUE: Multiple transaxial tomograms from the thoracic and abdominal aorta from the lung apex ba ses to the ischial tuberosities performed before and after the administration of large bolus of IV co ntrast 6 for complete opacification of the thoracic, abdominal aorta and iliac arteries utilizing 3 m m slice thickness at 3 mm interval reconstruction. 2-D and 3-D multiplanar reformats, volume rendering technique and maximum intensity projection images were generated and reviewed. This exam was performed according to our departmental dose-optimization protocol, which includes auto mated exposure control, adjustment of the mA and/or kV according to patient size and/or use of iterat sanjuana reconstruction technique. FINDINGS: Thoracic aorta: The thoracic aorta demonstrate to be within normal limits. There is no evidence for aneurysm and/or d issection. There is normal branching pattern of the great vessels with no evidence for significant st enosis/or occlusion proximal aspect. Abdominal aorta: The abdominal aorta demonstrate to be within normal limits. There is minimal atherosclerotic disease infrarenal portion with no evidence for aneurysm and/or dissection. Atherosclerotic disease is identi fied along the aortic bifurcation/proximal aspect of the iliac arteries. There is occlusion of the left external iliac artery. There is a thrombosed graft the proximal aspect left common femoral/proximal superficial femoral artery area. Incidentally is noted the presence of a retroaortic left renal vein. Selective trunk, superior mesenteric artery and inferior mesenteric artery demonstrate to be patent. There is minimal atheromatous plaque dimension within the origin of both renal arteries Chest: The lung parenchyma demonstrate to be within normal limits. No significant pulmonary nodules and/or m asses are identified. The trachea mainstem bronchus demonstrate to be unremarkable. There is no pleur al/or pericardial effusions. The heart is normal in size. The pulmonary arteries demonstrate to be no rmal. No evidence for significant filling defects that will suggest pulmonary embolus. There is no si gnificant mediastinal and/or hilar lymphadenopathy. The axillary regions demonstrate to be clear. The bone windows demonstrate no significant skeletal lesions. Abdomen and pelvis: The liver, spleen, adrenal glands, pancreas demonstrate to be unremarkable. Surgical clips within the cord bladder fossa correspond to previous cholecystectomy. The kidneys demonstrate normal of contrast media. There is no evidence hydronephrosis and/or nephroli thiasis. The unopacified stomach, small bowel and large bowel demonstrate to be within normal limits. No evide nce for bowel dilatation/or free air. The large bowel is decompressed. The appendix demonstrate to be within normal limits. The urinary bladder demonstrate to unremarkable. There is a status post hysterectomy. There are no ad nexal masses. There is no evidence for retroperitoneal lymphadenopathy. There is no evidence for asci raven. IMPRESSION: No evidence for thoracic/or abdominal aortic dissection or aneurysm. Occlusion of the left external iliac artery with a thrombosed graft the proximal aspect of the left c ommon femoral/proximal superficial femoral artery area. No evidence for significant filling defects that will suggest pulmonary embolus. Retroaortic left renal vein. Status post cholecystectomy and hysterectomy. Electronically signed by: Yang Singh MD 06/23/2022 12:35 AM CDT Due to temporary technical issues with the PACS/Fluency reporting system, reports are being signed by the in house radiologists without review as a courtesy to insure prompt reporting. The interpreting radiologist is fully responsible for the content of the report.
--- NOTE | 2022-06-23 13:57 | EKG ---
Test Date: 2022-06-22 Test Time: 22:19:16 [place] Dumper: LL MEASUREMENT RESULTS: Intervals: Rate: 76 MA: 134 QRSD: 86 QT: 410 QTc: 461 [place]: P: 71 MA: 134 QRS: 50 T: 70 INTERPRETIVE STATEMENTS: Normal sinus rhythm Normal ECG Compared to ECG 11/14/2020 01:37:40 No significant changes Electronically Signed On 06-23-22 13:56:22 CDT by Jose Smith
--- NOTE | 2022-06-23 14:38 | CON ---
Date of Consultation: 06/23/2022 Reason For Consultation: Chest pain. History Of Present Illness: A 61-year-old female, history of hypertension, dyslipidemia, anxiety, pe ripheral vascular disease with history of left AKA, presented to the emergency room with chest pain. Pain is retrosternal and epigastric, no radiation, not related to exertion. Currently, she had a he art cath about 10 years ago that was normal as per her report. Denies having nausea, vomiting, diarr hea, or diaphoresis with it and no other complaints. Past Medical History: As outlined above in HPI. Medications: Refer to reconciliation sheet for detailed list. Medication lists were reviewed. Allergies: CODEINE. Family History: No premature coronary artery disease or cancer. Social History: Does not drink or use any drugs, but she smokes half to 1 pack per day. Review of Systems: All systems were reviewed and they were negative except for what mentioned in HPI. Physical Examination: Vital Signs: Reviewed. Head and Neck: Pupils are equal, reactive to light. Intact eye movements. No JVD. No cervical lym phadenopathy. Neck is supple. Thyroid is not enlarged. Lungs: Clear to auscultation bilaterally. No rhonchi, wheezing, or crackles. No accessory muscle u se. Heart: Regular rate and rhythm. No extra sounds. Abdomen: Soft, nontender. Bowel sounds positive. No organomegaly. No masses or hernia. No rigidi ty or rebound. Extremities: No edema, clubbing, or cyanosis. Intact pulses. Skin: No rash. Neurologic: Alert, awake, oriented x3. No acute focal deficits appreciated. Investigations: Labs were reviewed. Troponins x2 were negative. Assessment And Recommendations: 1.Chest pain. No acute abnormalities on the EKG, troponins are negative and she has no further ches t pain. She can be released from Cardiology standpoint. Follow up as an outpatient with exercise st ress test and an echo. 2.Peripheral vascular disease. We will plan for lower extremity arterial Doppler on outpatient basi s. 3.Hypertension. Blood pressure is controlled. Continue home medications. SR/MODL Voice ID: [id number] Report ID: [id number]
== END 2022-06-23 09:20 | disposition home or self-care (01) ==
LOC: ER 21:45 → ERHOLD 06-23 01:22 → 4TH 06-23 01:24
PROVIDERS: ADMIT Hospitalist; ATTEND Hospitalist
DX: R07.9 Chest pain, unspecified (principal); R10.13 Epigastric pain; I10 Essential (primary) hypertension; E78.5 Hyperlipidemia, unspecified; F41.9 Anxiety disorder, unspecified; I73.9 Peripheral vascular disease, unspecified; F10.129 Alcohol abuse with intoxication, unspecified; F17.210 Nicotine dependence, cigarettes, uncomplicated; Z88.6 Allergy status to analgesic agent; Z82.49 Family history of ischemic heart disease and other diseases of the circulatory system; Z83.6 Family history of other diseases of the respiratory system; Z20.822 Contact with and (suspected) exposure to COVID-19; Z23 Encounter for immunization; D72.829 Elevated white blood cell count, unspecified; Z71.6 Tobacco abuse counseling; J44.9 Chronic obstructive pulmonary disease, unspecified
CPT/HCPCS: 96361; 93005; 85025 ×2; 80048 ×2; 36415; 80320; 83735; 80329 ×2; 85610; 80061; 80076; 84484 ×2; 83690; 83880; 80307; 87804 ×2; 70450; 72125; 71275; 74175; 71045; 96375; 96374; 99285; U0003; Q9967; J0360; J7614; J7030 ×2; J2930; G0378 ×2

== ENCOUNTER 2024-05-30 23:00 | Emergency (ER) | payer OTHER ==
[2024-05-31] MEDS ORDERED: NICOTINE 21 MG/PAT TD ONE (00:07)
[2024-05-31] MEDS ORDERED: ACETAMINOPHEN 325 MG TABLET ONE (00:07)
[2024-05-31 00:30] LABS: Absolute Eosinophils 0.3 K/uL (0-0.5); Absolute Lymphocytes (CBC) 2.6 K/uL (0.7-4.9); Absolute Monocytes 0.4 K/uL (0.1-1.3); Absolute Neutrophil 5.6 K/uL (1.8-8.0); Basophils % 0.5 % (0-1.3); Eosinophils % 3.2 % (0-4.4); Hemoglobin 14.5 g/dL (12.0-15.0); Lymphocytes % 28.8 % (15.3-44.8); MCH 33.1 pg (27.0-35.0); MCHC 35.3 g/dL (32.0-36.0); MCV 93.7 fL (80-100); MPV 6.9 fL (7.6-11.3); Monocytes % 4.8 % (3.3-12.3); Neutrophils % 62.7 % (41.7-73.7); Nucleated Red Blood Cells % 0.1 % (0-0); Platelets 454 thou/uL (152-406); RBC Red Blood Cell Count 4.38 M/uL (3.86-4.86); Red Cell Distribution Width 13.6 % (12.1-15.2)
[2024-05-31 00:32] LABS: PT Prothrombin Time 10.6 SECONDS (9.4-12.5); PTT, Activated Partial Thromb 29.1 SECONDS (24.3-36.9); Protime INR 0.94
[2024-05-31 00:46] LABS: ALT/SGPT 27 U/L (13-56); AST/SGOT 17 U/L (15-37); Albumin 1.2 g/dL (3.4-5.0); Albumin/Globulin Ratio 0.2 (1.1-1.8); Alkaline Phosphatase 132 U/L (45-117); Anion Gap 11.7 mEq/L (5.0-15.0); BUN Blood Urea Nitrogen 16 mg/dL (7-18); Bicarbonate 27 mEq/L (21-32); Bilirubin Total 0.2 mg/dL (0.2-1.0); Globulin 5.8 g/dL (2.3-3.5); Glomerular Filtration Rate 99 ml/min (=/>90); Glucose Level 66 mg/dL (74-106); Potassium 2.7 mEq/L (3.5-5.1); Sodium Level 140 mEq/L (136-145)
[2024-05-31 00:49] LABS: Bilirubin Direct < 0.2 mg/dL (0-0.2)
--- NOTE | 2024-05-31 01:33 | ER ---
Nurse's Notes [facility] Charline Name: Alessia Razo Age: 63 yrs Sex: Female : 1960 Arrival Date: 05/30/2024 Time: 23:00 Bed 20 Private MD: Diagnosis: Suicidal ideation, depression Presentation: 05/30 23:00 Chief complaint: Patient states: im having a panic attack and hearing voices telling me lg3 to kill myself. no plan at this time. Coronavirus screen: Client denies travel out of the [place] in the last 14 days. At this time, the client does not indicate any symptoms associated with coronavirus-19. Ebola Screen: No symptoms or risks identified at this time. Initial Sepsis Screen: Does the patient meet any 2 criteria? No. Patient's initial sepsis screen is negative. Does the patient have a suspected source of infection? No. Patient's initial sepsis screen is negative. Risk Assessment: Do you want to hurt yourself or someone else? Patient reports no desire to harm self or others. Onset of symptoms was May 30, 2024. 23:00 Method Of Arrival: EMS: [facility] lg3 23:00 Acuity: CAREY 2 lg3 Triage Assessment: 23:00 General: Appears in no apparent distress. slender, Behavior is cooperative, anxious. lg3 Pain: Complains of pain in chest and abdomen. EENT: No deficits noted. No signs and/or symptoms were reported regarding the EENT system. Neuro: Arthur Agitation-Sedation Scale (RASS): +1 Restless Level of Consciousness is awake, alert, obeys commands, Oriented to person, place, time, situation. Cardiovascular: No deficits noted. Reports chest pain, Capillary refill < 3 seconds Clubbing of nail beds is absent JVD is absent Patient's skin is warm and dry. Respiratory: No deficits noted. Airway is patent Respiratory effort is even, unlabored, Respiratory pattern is regular, symmetrical. 23:00 GI: No deficits noted. Abdomen is flat, non-distended, Bowel sounds present X 4 quads. lg3 Reports lower abdominal pain, upper abdominal pain, cramping, diarrhea. : No deficits noted. No signs and/or symptoms were reported regarding the genitourinary system. Derm: No deficits noted. No signs and/or symptoms reported regarding the dermatologic system. Skin is intact, is healthy with good turgor, Skin is dry, Skin is normal, Skin temperature is warm. Musculoskeletal: No deficits noted. No signs and/or symptoms reported regarding the musculoskeletal system. Amputation of left leg. Circulation, motion, and sensation intact. Range of motion: intact in all extremities. Historical: - Allergies: 23:31 Codeine; lg3 - PMHx: 23:31 Anxiety; Hypercholesterolemia; Hypertensive disorder; bipolar (Hypertensive disorder); lg3 PVD (Hypertensive disorder); - PSHx: 23:31 Cholecystectomy; hysterectomy; Left AKA; Left eye removed; lg3 - Immunization history:: Adult Immunizations up to date. - Infectious Disease History:: Denies. - Social history:: Smoking status: Patient denies any tobacco usage or history of. Screenin:00 [facility] ED Fall Risk Assessment (Adult) History of falling in the last 3 months, lg3 including since admission No falls in past 3 months (0 pts) Confusion or Disorientation No (0 pts) Intoxicated or Sedated No (0 pts) Impaired Gait Yes (1 pt) Mobility Assist Device Used Yes (1 pt) Altered Elimination No (0 pt) Score/Fall Risk Level 0 - 2 = Low Risk Oriented to surroundings, Maintained a safe environment, Educated pt \\T\\ family on fall prevention, incl call for assistance when getting out of bed, Assessed \\T\\ reinforced patient's understanding of fall precautions. Abuse screen: Denies threats or abuse. Denies injuries from another. Nutritional screening: No deficits noted. Tuberculosis screening: No symptoms or risk factors identified. Assessment: 23:00 General: see triage assessment. lg3 05/31 00:41 Reassessment: Patient and/or family updated on plan of care and expected duration. Pain rg5 level reassessed. Patient is alert, oriented x 3, equal unlabored respirations, skin warm/dry/pink. General: Appears comfortable, Behavior is calm, cooperative. Respiratory: Airway is patent Trachea midline Respiratory effort is even, unlabored, Respiratory pattern is regular, symmetrical. 01:59 Reassessment: Patient and/or family updated on plan of care and expected duration. Pain rg5 level reassessed. Patient is alert, oriented x 3, equal unlabored respirations, skin warm/dry/pink. 02:30 Reassessment: Patient and/or family updated on plan of care and expected duration. Pain rg5 level reassessed. Patient is alert, oriented x 3, equal unlabored respirations, skin warm/dry/pink. Psych: 05/30 23:00 [place] Suicide Severity Screening: In the past month, have you wished you were lg3 or wished you could go to sleep and not wake up? Patient responds "No." "In the past month, have you actually had any thoughts of killing yourself?" Patient responds "yes." "In your lifetime, have you ever done anything, started to do anything, or prepared to do anything to end your life?" Patient responds "yes." Patient reports suicidal intent within 3 past months. Subjective: Patient's mood is sad, hopeless, Hallucinations are auditory. Objective: Patient is cooperative, irritable, using poor eye contact. Interventions: Removed personal items and placed in bag. Patient placed in hospital gown. Searched person for dangerous items. Urine collected and sent for urine drug test. Belonging list filled out. Safety Checks: Personal items have been removed. Pt has been placed in a hallway bed/chair. No visitors are present at this time. Pt denies substance abuse. Commitment: Patient will be a voluntary commitment. Vital Signs: 23:00 BP 168 / 89; Pulse 83; Resp 17 S; Temp 97.4(O); Pulse Ox 97% on R/A; Weight 68.04 kg lg3 (R); Height 5 ft. 2 in. (R); 23:12 BP 168 / 89; Pulse 83; Resp 17; Temp 97.4; Pulse Ox 97% on R/A; Pain 6/10; rg5 05/31 01:00 BP 148 / 88; Pulse 83; Resp 17; Temp 98(O); Pulse Ox 99% on R/A; Pain 0/10; rg5 02:45 BP 151 / 84; Pulse 78; Resp 16 S; Temp 98.2(O); Pulse Ox 98% on R/A; lg3 05/30 23:00 Body Mass Index 27.44 (68.04 kg, 157.48 cm) lg3 23:12 Pain Scale: Adult rg5 05/31 01:00 Pain Scale: Adult rg5 ED Course: 05/30 23:00 Safety Checks: Personal items have been removed. The door is open or patient has been lg3 placed in a hallway bed/chair. There are no family/friend visitors at this time Sitter present at this time. 23:00 Arm band placed on right wrist. EKG completed in triage. Results shown to MD. lg3 23:00 Patient has correct armband on for positive identification. Bed in low position. lg3 Valuables inventory done. See valuables checklist. Client placed on continuous cardiac and pulse oximetry monitoring. NIBP monitoring applied. Noise minimized. Warm blanket given. Pillow given. Patient is placed in psych hold. 23:12 Patient arrived in ED. lg3 23:12 Antonio Corrales MD is Attending Physician. sp3 23:12 No provider procedures requiring assistance completed. rg5 23:26 Jayy Cheney, PORSHA is Primary Nurse. rg5 23:31 Triage completed. lg3 23:51 EKG done, by ED staff, reviewed by Antonio Corrales MD. oe 23:52 Inserted saline lock: 22 gauge in right antecubital area, using aseptic technique. oe Blood collected. Flushed with 10 mL NS. 02 00:02 Acetaminophen Sent. oe 00:02 Basic Metabolic Panel Sent. oe 00:02 CBC with Diff Sent. oe 00:02 ETOH Level Sent. oe 00:02 Hepatic Function Sent. oe 00:02 PT-INR Sent. oe 00:03 Ptt, Activated Sent. oe 00:03 Salicylate Sent. oe 01:30 faxed pt clinical's to various facilities ([facility], [facility], [facility], [facility]). kmf 01:50 nurse to nurse with Yumi at [facility]. kmf 02:44 pt was accepted to [facility]. accepting Gissel Rene \\T\\ [id number]. [facility] [place] Toney kmf \\T\\0200. [facility] to transfer pt. EMS on current transfer. 02:49 Diet: Patient given snack. Patient given juice. oe 02:50 Provided Education on: POST ER CARE. rg5 02:50 IV discontinued. rg5 Administered Medications: 00:10 Drug: Acetaminophen PO 650 mg PO once Route: PO; rg5 02:00 Follow up: Response: No adverse reaction; Pain is decreased rg5 00:10 Drug: Nicoderm CQ Transdermal Patch 21 mg/24 hr 1 patches Transdermal once Route: rg5 Transdermal; Site: affected area; 01:44 Drug: Potassium PO Effervescent Tablet 50 mEq PO once; dissolve in 4 ounces of water or rg5 juice Route: PO; 02:00 Follow up: Response: No adverse reaction rg5 02:00 Follow up: Response: No adverse reaction rg5 Medication: 05/30 23:12 VIS not applicable for this client. rg5 Outcome: 05/31 01:33 ER care complete, transfer ordered by . sp3 02:50 Transferred by ground EMS Note: [facility] rg5 02:50 Condition: stable 02:50 Instructed on the need for transfer, 02:51 Patient left the ED. rg5 Signatures: Seymour Low Lacie, RN RN lg3 Antonio Corrales MD MD sp3 Razia Hammonds [facility] Jayy Cheney RN RN rg5 Corrections: (The following items were deleted from the chart) 02:48 05/30 23:12 BP 168 / 89; Pulse 83bpm; Resp 17bpm; Pulse Ox 97% RA; Temp 97.4F; 30.86 rg5 kg; Pain 6/10, Adult; rg5
--- NOTE | 2024-05-31 01:33 | EDPHYS ---
Physician Documentation [facility] Name: Alessia Razo Age: 63 yrs Sex: Female : 1960 Arrival Date: 05/30/2024 Time: 23:00 Bed 20 Private MD: ED Physician Antonio Corrales HPI: 05/30 23:51 This 63 yrs old Female presents to ER via EMS with complaints of suicidal ideation. sp3 23:51 63-year-old female with history of anxiety, hyperlipidemia, hypertension, bipolar sp3 disease now presents to the ED with chief complaint suicidal ideation and "hearing voices". This all started over the last 48 hours. She denies any anxiety but states that the voices are talking to her and she now feels suicidal. She has no plan. She denies homicidal ideation at this time. No somatic complaints whatsoever including headache, fever, URI symptoms, neck pain, chest pain, shortness of breath, abdominal pain, vomiting, diarrhea, rash, syncope, near syncope, focal neurological deficit, or any other signs or symptoms on ROS at this time.. Historical: - Allergies: 23:31 Codeine; lg3 - PMHx: 23:31 Anxiety; Hypercholesterolemia; Hypertensive disorder; bipolar (Hypertensive disorder); lg3 PVD (Hypertensive disorder); - PSHx: 23:31 Cholecystectomy; hysterectomy; Left AKA; Left eye removed; lg3 - Immunization history:: Adult Immunizations up to date. - Infectious Disease History:: Denies. - Social history:: Smoking status: Patient denies any tobacco usage or history of. ROS: 23:53 Constitutional: Negative for fever, chills, and weight loss, Eyes: Negative for injury, sp3 pain, redness, and discharge, ENT: Negative for injury, pain, and discharge, Neck: Negative for injury, pain, and swelling, Cardiovascular: Negative for chest pain, palpitations, and edema, Respiratory: Negative for shortness of breath, cough, wheezing, and pleuritic chest pain, Abdomen/GI: Negative for abdominal pain, nausea, vomiting, diarrhea, and constipation, Back: Negative for injury and pain, MS/Extremity: Negative for injury and deformity, Skin: Negative for injury, rash, and discoloration, Neuro: Negative for headache, weakness, numbness, tingling, and seizure, Allergy/Immunology: Negative for hives, rash, and allergies, Endocrine: Negative for neck swelling, polydipsia, polyuria, polyphagia, and marked weight changes, Hematologic/Lymphatic: Negative for swollen nodes, abnormal bleeding, and unusual bruising, 23:53 All other systems are negative, Exam: 23:53 Constitutional: This is a well developed, well nourished patient who is awake, alert, sp3 and in no acute distress. Head/Face: Normocephalic, atraumatic. Eyes: Pupils equal round and reactive to light, extra-ocular motions intact. Lids and lashes normal. Conjunctiva and sclera are non-icteric and not injected. Cornea within normal limits. Periorbital areas with no swelling, redness, or edema. Neck: Trachea midline, no thyromegaly or masses palpated, and no cervical lymphadenopathy. Supple, full range of motion without nuchal rigidity, or vertebral point tenderness. No Meningismus. Chest/axilla: Normal chest wall appearance and motion. Nontender with no deformity. No lesions are appreciated. Cardiovascular: Regular rate and rhythm with a normal S1 and S2. No gallops, murmurs, or rubs. Normal PMI, no JVD. No pulse deficits. Respiratory: Lungs have equal breath sounds bilaterally, clear to auscultation and percussion. No rales, rhonchi or wheezes noted. No increased work of breathing, no retractions or nasal flaring. Abdomen/GI: Soft, non-tender, with normal bowel sounds. No distension or tympany. No guarding or rebound. No evidence of tenderness throughout. Back: No spinal tenderness. No costovertebral tenderness. Full range of motion. Skin: Warm, dry with normal turgor. Normal color with no rashes, no lesions, and no evidence of cellulitis. MS/ Extremity: Pulses equal, no cyanosis. Neurovascular intact. Full, normal range of motion. Neuro: Awake and alert, GCS 15, oriented to person, place, time, and situation. Cranial nerves II-XII grossly intact. Motor strength 5/5 in all extremities. Sensory grossly intact. Cerebellar exam normal. Normal gait. 23:53 Psych: Patient does not appear to be responding to internal stimuli. She does acknowledge hearing voices. She does not appear to be violent or active self-harm. She does endorse suicidal ideation.. 23:55 ECG was reviewed by the Attending Physician. EKG demonstrates normal sinus rhythm at 81 sp3 bpm with normal intervals except QTc 513, normal QRS, normal axis, nonspecific diffuse ST's ST changes without evidence of acute ischemia. Vital Signs: 23:00 BP 168 / 89; Pulse 83; Resp 17 S; Temp 97.4(O); Pulse Ox 97% on R/A; Weight 68.04 kg lg3 (R); Height 5 ft. 2 in. (R); 23:12 BP 168 / 89; Pulse 83; Resp 17; Temp 97.4; Pulse Ox 97% on R/A; Pain 6/10; rg5 05/31 01:00 BP 148 / 88; Pulse 83; Resp 17; Temp 98(O); Pulse Ox 99% on R/A; Pain 0/10; rg5 02:45 BP 151 / 84; Pulse 78; Resp 16 S; Temp 98.2(O); Pulse Ox 98% on R/A; lg3 05/30 23:00 Body Mass Index 27.44 (68.04 kg, 157.48 cm) lg3 23:12 Pain Scale: Adult rg5 05/31 01:00 Pain Scale: Adult rg5 MDM: 05/30 23:12 Patient medically screened. 3 23:54 Data reviewed: vital signs, nurses notes, lab test result(s), EKG. ED course: sp3 63-year-old female with suicidal ideation and hearing voices. Will ensure no medical etiology including delirium. Workup will include laboratory values, EKG, UDS and urine analysis. If workup negative, we will transfer to psychiatric facility once medically clear for further evaluation. No active intervention medically indicated at this time.. 05/31 01:32 ED course: Alcohol 104. Patient still suicidal and we will transfer her to psychiatric 3 facility.. 05/30 23:16 Order name: Acetaminophen; Complete Time: sp3 05/30 23:16 Order name: Basic Metabolic Panel; Complete Time: 30 sp3 05/30 23:16 Order name: CBC with Diff; Complete Time: 30 sp3 05/30 23:16 Order name: ETOH Level; Complete Time: sp3 05/30 23:16 Order name: Hepatic Function; Complete Time: sp3 05/30 23:16 Order name: PT-INR; Complete Time: : sp3 05/30 23:16 Order name: Ptt, Activated; Complete Time: sp3 05/30 23:16 Order name: Salicylate; Complete Time: sp3 05/30 23:16 Order name: Urinalysis w/ reflexes; Complete Time: 02:25 sp3 05/30 23:16 Order name: Urine Drug Screen; Complete Time: : sp3 05/31 02:26 Order name: Urine Culture EDVA 05/30 23:16 Order name: EKG; Complete Time: 23:16 sp3 05/30 23:16 Order name: EKG - Nurse/Tech; Complete Time: 00: sp3 05/30 23:16 Order name: IV Saline Lock; Complete Time: 00: sp3 05/30 23:16 Order name: Labs collected and sent; Complete Time: 00: sp3 05/30 23:16 Order name: Suicide Screening (Phyllis); Complete Time: 00:05 sp3 Administered Medications: 00:10 Drug: Acetaminophen PO 650 mg PO once Route: PO; rg5 02:00 Follow up: Response: No adverse reaction; Pain is decreased rg5 00:10 Drug: Nicoderm CQ Transdermal Patch 21 mg/24 hr 1 patches Transdermal once Route: rg5 Transdermal; Site: affected area; 01:44 Drug: Potassium PO Effervescent Tablet 50 mEq PO once; dissolve in 4 ounces of water or rg5 juice Route: PO; 02:00 Follow up: Response: No adverse reaction rg5 02:00 Follow up: Response: No adverse reaction rg5 Disposition Summary: 05/31/24 01:33 Transfer Ordered Notes: Transfer Location: Psych Facility sp3 Reason: Higher level of care sp3 Condition: Stable sp3 Problem: an acute exacerbation sp3 Symptoms: have worsened sp3 Accepting Physician: Psychiatric facility TBD(05/31/24 02:51) rg5 Diagnosis - Suicidal ideation, depression sp3 Forms: - Medication Reconciliation Form sp3 - SBAR form sp3 Signatures: Dispatcher [employer] EDFlavia Pettit RN RN tim3 Antonio Corrales MD MD sp3 Jayy Cheney RN RN rg5 Corrections: (The following items were deleted from the chart) 02:51 01:33 Psychiatric facility TBD sp3 rg5
[2024-05-31] MEDS ORDERED: POTASSIUM 25 MEQ EFFERV TAB ONE (01:45)
[2024-05-31 02:16] LABS: Calcium Oxalate Crystals- Ur Few /HPF (None Seen); Specific Gravity > 1.030 (1.005-1.030); Sqamous Epithelial <5 /HPF (None Seen); Urine Bacteria >50 /HPF (<20); Urine Bilirubin NEGATIVE (Negative); Urine Blood Trace (Negative); Urine Clarity Extremely Turbid (Clear); Urine Color Yellow (Yellow); Urine Culture Reflex Order REFLEXED; Urine Glucose NEGATIVE (Negative); Urine Ketones TRACE (Negative); Urine Microscopic Reflex YN ORDER UMIC; Urine Mucus 4+ /HPF (None Seen); Urine Nitrite 2+ (Negative); Urine Protein 1+ (Negative); Urine RBC <5 /HPF (None Seen); Urine Urobilinogen 1+ (Normal)
[2024-05-31 02:19] LABS: Barbiturates NEGATIVE (NEGATIVE); Benzodiazepines NEGATIVE (NEGATIVE); Cocaine POSITIVE (NEGATIVE); METHAMPHETAM POSITIVE (NEGATIVE); Methadone NEGATIVE (NEGATIVE); Opiates POSITIVE (NEGATIVE); Phencyclidine NEGATIVE (NEGATIVE); THC Cannibis NEGATIVE (NEGATIVE)
--- NOTE | 2024-05-31 12:55 | EKG ---
Test Date: 2024-05-30 Test Time: 23:33:29 Cloth Classer: PABLO MEASUREMENT RESULTS: Intervals: Rate: 81 WY: 108 QRSD: 98 QT: 442 QTc: 513 Hague: P: 70 WY: 108 QRS: 63 T: 57 INTERPRETIVE STATEMENTS: Sinus rhythm with short [place] ST & T wave abnormality, consider anterior ischemia Prolonged QT Abnormal ECG Compared to ECG 06/22/2022 22:19:16 Short [place] interval now present ST (T wave) deviation now present Possible ischemia now present Prolonged QT interval now present Electronically Signed On 05-31-24 12:54:06 CDT by Marvin Pham
[2024-05-31 16:50] VITALS: BP 148/88; TEMP 98; O2SAT 99
== END 2024-05-31 02:51 ==
LOC: ER 23:00
DX: R45.851 Suicidal ideations (principal); F41.9 Anxiety disorder, unspecified; R44.0 Auditory hallucinations; E78.5 Hyperlipidemia, unspecified; I10 Essential (primary) hypertension; F32.A Depression, unspecified; Z88.5 Allergy status to narcotic agent
CPT/HCPCS: 36415; 80048; 80076; 80143; 80179; 80307; 81001; 82077; 82947; 85025; 85610; 85730; 87077; 87086; 87088; 87186; 93005; 99285

== ENCOUNTER 2025-06-11 21:47 | Emergency (ER) | payer OTHER ==
[2025-06-11] MEDS ORDERED: predniSONE 20 MG TAB ONE (22:11)
[2025-06-11] MEDS ORDERED: DIPHENHYDRAMINE 25 MG TAB/CAP ONE (22:11)
[2025-06-11] MEDS ORDERED: FAMOTIDINE 20 MG TAB ONE (22:12)
[2025-06-11] MEDS ORDERED: ALPRAZOLAM 1 MG TABLET ONE (22:12)
--- NOTE | 2025-06-12 00:11 | RAD REPORT ---
PROCEDURE: CT Head and Cervical Spine Without Intravenous Contrast CLINICAL INDICATION: The patient is 64 years old and is Female; TRAUMA TECHNIQUE: Axial computed tomography images of the head/brain and cervical spine without intravenous contrast. Sagittal and coronal reformatted images were created and reviewed. This CT exam was performed using one or more of the following dose reduction techniques: automated exposure control, adjustmen t of the mA and/or kV according to patient size, and/or use of iterative reconstruction technique. COMPARISON: CT head and cervical spine dated 06/23/2022. FINDINGS: BRAIN: Cerebral volume loss and chronic small vessel ischemic changes. No hemorrhage. No mass effect or midline shift. VENTRICLES: Unremarkable. No ventriculomegaly. SKULL: No acute fracture. SINUSES: Unremarkable as visualized. No acute sinusitis. MASTOID AIR CELLS: Unremarkable as visualized. No mastoid effusion. ORBITS: Prior left globe postsurgical changes. VERTEBRAE: Small anterolisthesis of C2 on C3 and C7 on T1. No acute fracture. Multilevel spondylosis, facet and uncovertebral joint hypertrophy. DISCS/SPINAL CANAL/NEURAL FORAMINA: Advanced multilevel multifactorial degenerative changes. No spinal canal stenosis. SOFT TISSUES: Unremarkable. VASCULATURE: Vascular calcifications. IMPRESSION: 1. No acute intracranial hemorrhage, hydrocephalus or herniation. 2. No acute cervical spine fracture. 3. Cerebral volume loss and chronic small vessel ischemic changes. Consider MRI brain for further evaluation. 4. Small anterolisthesis of C2 on C3 and C7 on T1. 5. Advanced multilevel multifactorial degenerative changes. Electronically signed by: Jimbo Vega DO 06/11/2025 11:51 PM CDT RP 9 Due to temporary technical issues with the PACS/[employer] reporting system, reports are being joya d by the in-house radiologist without review as a courtesy to ensure prompt reporting the interpreting radiologist is fully responsible for the content of the report. Transcribed Date/Time: 06/12/2025 12:11 AM
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
--- NOTE | 2025-06-12 03:56 | RAD REPORT ---
EXAM: CT Chest, Abdomen and Pelvis Without Intravenous Contrast CLINICAL HISTORY: The patient is 64 years old and is Female; TRAUMA TECHNIQUE: Axial computed tomography images of the chest, abdomen and pelvis without intravenous contrast. S agittal and coronal reformatted images were created and reviewed. This CT exam was performed using one or more of the following dose reduction techniques: automated exposure control, adjustmen t of the mA and/or kV according to patient size, and/or use of iterative reconstruction technique. COMPARISON: No relevant prior studies available. FINDINGS: CHEST: LUNGS AND PLEURAL SPACES: Unremarkable. No mass. No consolidation. No significant effusion. No pneumothorax. HEART: No cardiomegaly. No pericardial effusion. ABDOMEN: LIVER: Homogeneous without focal mass. GALLBLADDER AND BILE DUCTS: Surgical clips are present in the right upper quadrant, consistent wi th previous cholecystectomy. PANCREAS: Unremarkable. No ductal dilation. SPLEEN: Unremarkable. ADRENALS: Unremarkable. No mass. KIDNEYS AND URETERS: No obstructing stones. No hydronephrosis. No perinephric fluid. STOMACH AND BOWEL: Stomach is moderately distended with food contents. The small bowel is normal in caliber. Stool is present throughout the colon. There is no mucosal thickening or evidence of obstruction. PELVIS: APPENDIX: The appendix is normal in caliber without surrounding inflammation. BLADDER: The bladder is well distended. No stones. REPRODUCTIVE: The patient is status post hysterectomy. CHEST, ABDOMEN and PELVIS: INTRAPERITONEAL SPACE: Unremarkable. No significant fluid collection. No free air. BONES/JOINTS: There is no acute fracture of the visualized axial and appendicular skeleton. Multi level degenerative change of the spine is present. Anterolisthesis of L4 on L5 secondary to facet arthropathy is noted. The vertebral body heights and alignment are otherwise maintained. SOFT TISSUES: The soft tissues are normal. VASCULATURE: Calcified phleboliths are present within the pelvis. Atherosclerosis of the vascul ature is present. The vessels are normal in caliber. No aortic aneurysm. LYMPH NODES: Unremarkable. No enlarged lymph nodes. IMPRESSION: No evidence of solid organ injury or traumatic bony findings on this noncontrast CT of the chest, a bdomen, and pelvis. Electronically signed by: Divya Gutierrez MD 06/12/2025 12:52 AM CDT RP Due to temporary technical issues with the PACS/[employer] reporting system, reports are being joya d by the in-house radiologist without review as a courtesy to ensure prompt reporting the interpreting radiologist is fully responsible for the content of the report. Transcribed Date/Time: 06/12/2025 3:55 AM
[2025-06-12 12:23] VITALS: BP 134/75; TEMP 97.1; O2SAT 97
== END 2025-06-12 01:49 | disposition home or self-care (01) ==
LOC: ER 21:47
DX: M54.9 Dorsalgia, unspecified (principal); V87.8XXA Person injured in other specified noncollision transport accidents involving motor vehicle (traffic), initial encounter; Z89.612 Acquired absence of left leg above knee
CPT/HCPCS: 70450; 71250; 72125; 74176; 99284; J7512

== ENCOUNTER 2025-06-16 01:53 | Emergency (ER) | payer OTHER ==
[2025-06-16 02:30] LABS: Absolute Lymphocytes (CBC) 0.9 K/uL (0.7-4.9); Hematocrit 42.6 % (36.0-45.0); Hemoglobin 14.6 g/dL (12.0-15.0); MCH 32.7 pg (27.0-35.0); MCHC 34.3 g/dL (32.0-36.0); MCV 95.5 fL (80-100); MPV 6.6 fL (7.6-11.3); Nucleated RBC Absolute Count 0.0 (0-0); Nucleated Red Blood Cells % 0.0 % (0-0); RBC Red Blood Cell Count 4.46 M/uL (3.86-4.86); White Blood Count 11.60 thou/uL (4.3-10.9)
[2025-06-16 03:12] LABS: Anion Gap 9.0 mEq/L (5.0-15.0); BUN Blood Urea Nitrogen 15.0 mg/dL (7-18); Glucose Level 98.0 mg/dL (74-106); Potassium 4.0 mEq/L (3.5-5.1); Troponin High Sensitivity 4.8 pg/mL (<58.9)
--- NOTE | 2025-06-16 04:20 | EDPHYS ---
Physician Documentation [facility] Name: Alessia Razo Age: 64 yrs Sex: Female : 1960 Arrival Date: 06/16/2025 Time: 01:53 Bed 5 Private MD: ED Physician Adryan Boyle HPI: 06/16 04:15 This 64 yrs old Female presents to ER via EMS with complaints of Syncope. tt7 04:15 Patient was apparently found sleeping on the sidewalk outside a bar, was woken up and tt7 had 1 episode of nonbloody nonbilious vomiting, no evidence of trauma, admits to consuming multiple alcoholic beverages this evening, currently has no complaints, past medical history includes anxiety, bipolar disorder, hypertension. Historical: - Allergies: 03:09 Codeine; tb4 - PMHx: 03:09 Anxiety; Bipolar (Hypertensive disord); Hypertensive disorder; PVD (Hypertensive tb4 disord); Hypercholesterolemia; - PSHx: 03:09 Cholecystectomy; Left AKA; hysterectomy; Left eye removed; tb4 - Immunization history:: Adult Immunizations up to date, booster on 06/15/25 Flu vaccine is up to date. Shingles vaccine on 06/15/2025. - Infectious Disease History:: Denies. - Social history:: Smoking status: Patient reports the use of cigarette tobacco products, unknown amount Less than 1/2 pack, Patient uses alcohol, but reports only rare drinking. Patient/guardian denies using street drugs, IV drugs. ROS: 04:03 Constitutional: negative for fever. Cardiovascular: negative for chest pain. tt7 Respiratory: negative for shortness of breath. Abdomen/GI: negative for abdominal pain, nausea, vomiting, diarrhea. MS/Extremity: negative for injury and deformity. Skin: negative for rash. Neuro: negative for focal weakness. Exam: 04:03 Constitutional: vital signs reviewed, well appearing. Head/Face: normocephalic, tt7 atraumatic. Eyes: no conjunctival injection, anicteric sclerae. ENT: mucus membranes moist. Neck: trachea midline, no JVD, no meningismus. Chest/axilla: normal chest wall appearance and motion, nontender, no crepitus. Cardiovascular: regular rate and rhythm, no murmurs, no rubs, no lower extremity edema. Respiratory: normal respiratory effort, no accessory muscle use, lungs CTAB. Abdomen/GI: soft, nondistended, nontender, no guarding or rebound, negative Mcwilliams's sign, no McBurney point tenderness. Back: normal ROM. Skin: warm, dry, intact, normal turgor, normal color, no rash. MS/ Extremity: normal ROM of extremities, no gross deformities. Neuro: alert and oriented with appropriate mental status, normal speech, follows commands, no focal neurologic deficits. Psych: appropriate mood and affect. Vital Signs: 02:00 BP 178 / 99; Pulse 91; Pulse Ox 98% on R/A; tb4 03:10 BP 122 / 72; Pulse 94; Resp 19; Pulse Ox 99% on R/A; tb4 03:32 Weight 39.46 kg; Height 5 ft. 2 in. ; Pain 7/10; tb4 04:32 BP 131 / 71; Pulse 86; Resp 18; Pulse Ox 100% ; vc1 03:32 Body Mass Index 15.91 (39.46 kg, 157.48 cm) tb4 03:32 Pain Scale: Adult tb4 MDM: 02:03 Medical Screening Exam initiated tt7 04:03 Differential Diagnosis: cardiac arrhythmia, emotional response, idiopathic syncope, tt7 pseudo seizure, vasovagal episode, Alcohol intoxication. Data reviewed: vital signs, nurses notes, lab test result(s), EKG, radiologic studies. ED course: I independently interpreted the patient's EKG performed on 06/16/2025 at 0341. On my interpretation, EKG demonstrates normal sinus rhythm, ventricular rate 89 bpm, normal axis, normal QRS interval, normal ST segments, no STEMI. ED course: I independently interpreted the patient's chest x-ray. On my interpretation, chest x-ray demonstrates no radiographic evidence of acute cardiopulmonary disease. ED course: Cardiac monitoring was ordered due to the potential for arrhythmia causing syncope. I independently interpreted the patient's cardiac rhythm as normal sinus rhythm at a rate of 85 bpm on the registered nurse cardiac. 04:05 ED course: Patient well-appearing, stable vital signs, no current complaints, standard tt7 cardiac workup ordered, nonischemic EKG, normal chest x-ray, normal laboratory studies other than ethanol level elevated at nearly 200, suspect patient's symptoms were due to alcohol intoxication, after completion of the patient's emergency department evaluation, I do not suspect a life-threatening or disabling process. Patient is medically stable and not in need of emergent medical intervention. I had a detailed discussion with the patient regarding the historical points, exam findings, emergency department evaluation, diagnostic results, and the discharge diagnosis. I instructed the patient on outpatient management of their condition. I discussed the need for outpatient follow-up with a primary care physician. I informed the patient on return precautions, including the need to return to the ED if symptoms do not improve, worsen, or if there are any questions or concerns that arise at home. The patient was discharged in stable condition. 06/16 02:04 Order name: Basic Metabolic Panel; Complete Time: 03:16 tt7 06/16 02:04 Order name: CBC with Diff; Complete Time: 02:46 tt7 06/16 02:04 Order name: Troponin HS; Complete Time: 03:16 tt7 06/16 02:04 Order name: ETOH Level; Complete Time: 03:16 tt7 06/16 02:04 Order name: XRAY Chest (1 view) tt7 06/16 02:04 Order name: EKG; Complete Time: 02:04 tt7 06/16 02:04 Order name: Cardiac monitoring; Complete Time: 02:44 tt7 06/16 02:04 Order name: EKG - Nurse/Tech; Complete Time: 03:50 tt7 06/16 02:04 Order name: IV Saline Lock; Complete Time: 02:44 tt7 06/16 02:04 Order name: Labs collected and sent; Complete Time: 02:44 tt7 06/16 02:04 Order name: O2 Per Protocol; Complete Time: 02:44 7 06/16 02:04 Order name: O2 Sat Monitoring; Complete Time: 02:45 tt7 Administered Medications: No medications were administered Point of Care Testin:33 see lab work vc1 Ranges: Critical Glucose Levels:Adult <50 mg/dl or >400 mg/dl <40 mg/dl or >180 mg/dl Disposition: 04:22 Co-signature as Attending Physician, Adryan Boyle DO. tt7 Disposition Summary: 06/16/25 04:20 Discharge Ordered Notes: Location: Home tt7 Problem: new tt7 Symptoms: have improved tt7 Condition: Stable tt7 Diagnosis - Alcohol abuse with intoxication tt7 Followup: tt7 - With: Emergency Department - When: As needed - Reason: Followup: tt7 - With: Private Physician - When: 1 - 2 days - Reason: Recheck today's complaints, Re-evaluation by your physician Discharge Instructions: - Discharge Summary Sheet tt7 - Alcohol Intoxication, [id number] tt7 Forms: - Medication Reconciliation Form tt7 - Antibiotic Education tt7 - Prescription Opioid Use tt7 - Patient Portal Instructions tt7 - Leadership Thank You Letter tt7 Signatures: Dispatcher [employer] Kasia Winter RN RN tb4 Adryan Boyle, DO tt7
--- NOTE | 2025-06-16 04:20 | ER ---
Nurse's Notes [facility] Name: Alessia Razo Age: 64 yrs Sex: Female : 1960 Arrival Date: 06/16/2025 Time: 01:53 Bed 5 Private MD: Diagnosis: Alcohol abuse with intoxication Presentation: 06/16 02:00 Chief complaint: EMS states: Patient was found passed out on the road after leaving a tb4 bar, sternal rubs given patient woke up and vomit x1. Patient told EMS she was at the bar from 1830 but only had three glasses of wine. Coronavirus screen: At this time, the client does not indicate any symptoms associated with coronavirus-19. Ebola Screen: No symptoms or risks identified at this time. Initial Sepsis Screen: Does the patient meet any 2 criteria? No. Patient's initial sepsis screen is negative. Does the patient have a suspected source of infection? No. Patient's initial sepsis screen is negative. Risk Assessment: Do you want to hurt yourself or someone else? Patient reports no desire to harm self or others. Onset of symptoms was June 16, 2025. Care prior to arrival: Medication(s) given: zofran 4 mg. 02:00 Method Of Arrival: EMS: [facility] tb4 02:00 Acuity: CAREY 3 tb4 Triage Assessment: 02:00 General: Appears in no apparent distress. Behavior is cooperative, laughing and talking tb4 with staff. Pain: Denies pain. Neuro: Level of Consciousness is awake, alert, obeys commands, Oriented to person, place, time, situation, Moves all extremities. Full function Speech is normal, Facial symmetry appears normal, Reports Generalized weakness and pain. Cardiovascular: Patient's skin is warm and dry. Respiratory: Airway is patent Respiratory effort is even, unlabored, Respiratory pattern is regular. GI: No signs and/or symptoms were reported involving the gastrointestinal system. : No signs and/or symptoms were reported regarding the genitourinary system. Derm: No signs and/or symptoms reported regarding the dermatologic system. Skin is intact, is healthy with good turgor, Skin is dry, Skin is dusky. Musculoskeletal: Amputation of left leg. Circulation, motion, and sensation intact. Historical: - Allergies: 03:09 Codeine; tb4 - PMHx: 03:09 Anxiety; Bipolar (Hypertensive disord); Hypertensive disorder; PVD (Hypertensive tb4 disord); Hypercholesterolemia; - PSHx: 03:09 Cholecystectomy; Left AKA; hysterectomy; Left eye removed; tb4 - Immunization history:: Adult Immunizations up to date, booster on 06/15/25 Flu vaccine is up to date. Shingles vaccine on 06/15/2025. - Infectious Disease History:: Denies. - Social history:: Smoking status: Patient reports the use of cigarette tobacco products, unknown amount Less than 1/2 pack, Patient uses alcohol, but reports only rare drinking. Patient/guardian denies using street drugs, IV drugs. Screenin:29 [facility] ED Fall Risk Assessment (Adult) History of falling in the last 3 months, tb4 including since admission Yes- fall prone (multiple falls) (3 pts) Confusion or Disorientation No (0 pts) Intoxicated or Sedated No (0 pts) Impaired Gait Yes (1 pt) Mobility Assist Device Used Yes (1 pt) Altered Elimination No (0 pt) Score/Fall Risk Level 3 or more points = High Risk Maintained a safe environment, Educated pt \\T\\ family on fall prevention, incl call for assistance when getting out of bed. Abuse screen: Denies threats or abuse. Denies injuries from another. Nutritional screening: No deficits noted. Tuberculosis screening: No symptoms or risk factors identified. Assessment: 03:00 Reassessment: Patient appears in no apparent distress at this time. No changes from vc1 previously documented assessment. Patient and/or family updated on plan of care and expected duration. Pain level reassessed. Patient is alert, oriented x 3, equal unlabored respirations, skin warm/dry/pink. 03:00 Neuro: Level of Consciousness is awake, alert, obeys commands, Oriented to person, vc1 place, time, situation, Appropriate for age. Cardiovascular: Rhythm is regular. 04:00 Reassessment: Patient appears in no apparent distress at this time. No changes from vc1 previously documented assessment. Patient and/or family updated on plan of care and expected duration. Pain level reassessed. Patient is alert, oriented x 3, equal unlabored respirations, skin warm/dry/pink. 04:48 General: when this nurse went to discharge patient she started yanking the blanket back vc1 over herself, yelling at me saying "it's fucking cold" I instructed patient if she hits me I will call the police. Pt states, "call the police you fucking bitch." June rivas called. polytechnic teacher walks in room to assist with patient and to remove IV. Pt starts calling the tech names and starts looking for her purse. After given her purse she starts throwing blankets across the room. PD called at this time.. 04:56 Reassessment: Patient stated she had no way of getting home and refused to sign tb4 discharge paperwork or leave her room. Patient began shouting, cursing, pointing at staff and tossing her blankets around in the bed. Patient accused staff of not coming to checking on her since she was placed in her room and that no care was given to her. polytechnic teacher got wheel chair for patient and eventually sat in it and was taken to the lobby. General: Appears Angry . Behavior is uncooperative, cursing and pointing at staff. Respiratory: No deficits noted. GI:. Musculoskeletal: Amputation of left leg above the knee. Vital Signs: 02:00 BP 178 / 99; Pulse 91; Pulse Ox 98% on R/A; tb4 03:10 BP 122 / 72; Pulse 94; Resp 19; Pulse Ox 99% on R/A; tb4 03:32 Weight 39.46 kg; Height 5 ft. 2 in. ; Pain 7/10; tb4 04:32 BP 131 / 71; Pulse 86; Resp 18; Pulse Ox 100% ; vc1 03:32 Body Mass Index 15.91 (39.46 kg, 157.48 cm) tb4 03:32 Pain Scale: Adult tb4 ED Course: 02:00 Arm band placed on right wrist. tb4 02:03 Patient arrived in ED. vc1 02:03 Adryan Boyle DO is Attending Physician. tt7 02:25 Erica Morris, PORSHA is Primary Nurse. vc1 02:39 XRAY Chest (1 view) In Process Unspecified. EDMS 02:45 Basic Metabolic Panel Sent. vc1 02:45 Troponin HS Sent. vc1 02:45 ETOH Level Sent. vc1 02:46 EKG done. Initial lab(s) drawn, by ED staff, sent to lab. Inserted saline lock: 20 vk gauge in right antecubital area, using aseptic technique. Blood collected. Flushed with 10 mL NS. 03:10 No provider procedures requiring assistance completed. tb4 03:10 Patient has correct armband on for positive identification. Bed in low position. Call tb4 light in reach. Side rails up X 1. Client placed on continuous cardiac and pulse oximetry monitoring. NIBP monitoring applied. Door closed. Lights dimmed. Warm blanket given. 03:19 Triage completed. tb4 05:00 IV discontinued, intact, bleeding controlled, No redness/swelling at site. Pressure vc1 dressing applied. Administered Medications: No medications were administered Medication: 03:10 VIS not applicable for this client. tb4 Point of Care Testin:33 see lab work vc1 Ranges: Outcome: 04:20 Discharge ordered by . tt7 04:58 Discharged to home with walker, pt refused to sign paperwork vc1 04:58 Condition: stable 04:58 Instructed on discharge instructions, follow up and referral plans. the need for admit, 05:00 Patient left the ED. vc1 Signatures: Dispatcher [employer] EDMS Erica Morris RN RN vc1 Aleksandra Johns Terri, RN RN tb4 Adryan Boyle, DO tt7
--- NOTE | 2025-06-16 06:12 | RAD REPORT ---
EXAM DESCRIPTION: Chest Single View [facility]Lex: XR CHEST 1 VIEW CLINICAL HISTORY: 64 years Female, syncope COMPARISON: 06/22/2022 FINDINGS: Single portable AP upright view of the chest. Normal size of the cardiac silhouette. No consolidation . No pleural effusion or pneumothorax. No acute osseous abnormality. IMPRESSION: No acute radiographic abnormality. Electronically signed by: Clover Alaniz MD 06/16/2025 05:19 AM CDT RP Due to temporary technical issues with the PACS/Seventymm reporting system, reports are being joya d by the in-house radiologist without review as a courtesy to ensure prompt reporting the interpreting radiologist is fully responsible for the content of the report. Transcribed Date/Time: 06/16/2025 6:12 AM
[2025-06-16 12:42] VITALS: BP 131/71; O2SAT 100
== END 2025-06-16 05:00 | disposition home or self-care (01) ==
LOC: ER 01:53
DX: F10.129 Alcohol abuse with intoxication, unspecified (principal); Z72.0 Tobacco use
CPT/HCPCS: 36415; 71045; 80048; 82077; 84484; 85025; 93005; 99284